=== PATIENT | male | born 1940 | race Caucasian/White ===

== ENCOUNTER → 2018-08-12 14:28 | Outpatient (CLI) | payer OTHER, MEDICARE, SELFPAY ==
[2018-08-12 17:28] LABS: Protein, Urine (Random) 90.9 mg/dL (<11.9); Protein:Creat Ratio 586 mg/g CRE (0-200)
[2018-08-12 18:15] LABS: BUN 30 mg/dL (7-18); BUN/Creat Ratio 20.3 RATIO (10-20); Calcium,Total 9.1 mg/dL (8.5-10.1); Chloride 110 mmol/L (98-107); Creatinine, Serum 1.48 mg/dL (0.70-1.30); EST Glomerular Filtration Rate 49 mL/min (>60); Est Glom Filt Rate - Afr Amer 59 mL/min (>60); Glucose 115 mg/dL (74-106); Phosphorus 3.5 mg/dL (2.5-4.9); Potassium 4.7 mmol/L (3.5-5.1); Sodium Level 144 mmol/L (136-145)
== END ==
PROVIDERS: Family Provider Family Medicine; PCP Family Medicine; Visit Provider Internal Medicine Nephrology
DX: N17.9 Acute kidney failure, unspecified (principal); E11.22 Type 2 diabetes mellitus with diabetic chronic kidney disease
CPT/HCPCS: 36415; 80069; 82570; 84156

== ENCOUNTER → 2019-07-22 10:56 | Outpatient (CLI) | payer OTHER, MEDICARE, SELFPAY ==
[2019-07-22 12:45] LABS: Anion Gap 3 (5-15); BUN 42 mg/dL (7-18); Calcium,Total 8.7 mg/dL (8.5-10.1); Chloride 118 mmol/L (98-107); Creatinine, Serum 1.83 mg/dL (0.70-1.30); EST Glomerular Filtration Rate 38 mL/min (>60); Est Glom Filt Rate - Afr Amer 46 mL/min (>60); Glucose 129 mg/dL (74-106); Potassium 5.5 mmol/L (3.5-5.1); Sodium Level 143 mmol/L (136-145)
== END ==
PROVIDERS: Family Provider Family Medicine; PCP Family Medicine; Visit Provider Internal Medicine Nephrology
DX: E87.5 Hyperkalemia (principal); E11.22 Type 2 diabetes mellitus with diabetic chronic kidney disease; N18.3 Chronic kidney disease, stage 3 (moderate)
CPT/HCPCS: 36415; 80048

== ENCOUNTER → 2019-08-05 14:16 | Outpatient (CLI) | payer OTHER, MEDICARE, SELFPAY ==
[2019-08-05 18:30] LABS: Anion Gap 8 (5-15); BUN 34 mg/dL (7-18); BUN/Creat Ratio 17.7 RATIO (10-20); Calcium,Total 8.9 mg/dL (8.5-10.1); Chloride 112 mmol/L (98-107); Creatinine, Serum 1.92 mg/dL (0.70-1.30); EST Glomerular Filtration Rate 36 mL/min (>60); Est Glom Filt Rate - Afr Amer 44 mL/min (>60); Glucose 144 mg/dL (74-106); Potassium 5.3 mmol/L (3.5-5.1); Sodium Level 144 mmol/L (136-145)
== END ==
PROVIDERS: Family Provider Family Medicine; PCP Family Medicine; Visit Provider Internal Medicine Nephrology
DX: E78.5 Hyperlipidemia, unspecified (principal)
CPT/HCPCS: 36415; 80048

== ENCOUNTER → 2020-02-01 11:07 | Outpatient (CLI) | payer MEDICARE, BC, SELFPAY ==
[2020-02-01 12:54] LABS: Albumin, Serum 2.7 g/dL (3.2-5.0); BUN 39 mg/dL (7-18); BUN/Creat Ratio 19.6 RATIO (10-20); Calcium,Total 8.9 mg/dL (8.5-10.1); Chloride 117 mmol/L (98-107); Creatinine, Serum 1.99 mg/dL (0.70-1.30); EST Glomerular Filtration Rate 35 mL/min (>60); Est Glom Filt Rate - Afr Amer 42 mL/min (>60); Glucose 81 mg/dL (74-106); Phosphorus 3.1 mg/dL (2.5-4.9); Potassium 5.6 mmol/L (3.5-5.1); Sodium Level 143 mmol/L (136-145)
== END ==
PROVIDERS: PCP Family Medicine; Visit Provider Internal Medicine Nephrology
DX: E87.5 Hyperkalemia (principal)
CPT/HCPCS: 36415; 80069

== ENCOUNTER → 2020-05-17 11:32 | Outpatient (CLI) | payer MEDICARE, BC, SELFPAY ==
[2020-05-17 12:49] LABS: Anion Gap 8 (5-15); BUN 37 mg/dL (7-18); BUN/Creat Ratio 19.5 RATIO (10-20); Calcium,Total 8.7 mg/dL (8.5-10.1); Chloride 111 mmol/L (98-107); EST Glomerular Filtration Rate 37 mL/min (>60); Est Glom Filt Rate - Afr Amer 44 mL/min (>60); Glucose 108 mg/dL (74-106); Potassium 5.5 mmol/L (3.5-5.1); Sodium Level 142 mmol/L (136-145)
== END ==
PROVIDERS: PCP Family Medicine; Visit Provider Internal Medicine Nephrology
DX: E87.5 Hyperkalemia (principal)
CPT/HCPCS: 36415; 80048

== ENCOUNTER 2021-01-04 18:58 | Inpatient (IN) | payer MEDICARE, BC, SELFPAY ==
[2021-01-04 19:22] VITALS: BP 140/49; PULSE 85; RESP 20; TEMP 36.4; O2SAT 98
[2021-01-04 21:45] VITALS: BMI 42.3
[2021-01-04 21:50] VITALS: BMI 42.3
--- NOTE | 2021-01-04 22:20 | HP.PCM_ITS ---
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 The patient is a 80 year old Male with below past medical history suffered a burn to right index finger 1 month prior. Right index finger was infected, and he saw his PCP who prescribed oral clindamycin. His right index finger continue to worsen, and he presented to [facility] Emergency department. He was admitted to hospital and diagnosed with osteomyelitis of right index finger requiring 6 weeks of IV antibiotics. May need surgical debridement of finger. 01/03/2021 Elevated creatinine managed with IV fluids, monitoring. He also has chronic left heel ulcer managed with a wound VAC dressing. 01/04/2021 Admit to TCU with debility, here for rehabilitation, strengthening, intravenous antibiotics, wound care, prior to discharge home alone. Past Medical History Past Medical History (Chronic Problems): Chronic Problems Ulcer of left heel (Chronic) Gout (Chronic) Hypertension (Chronic) Vitamin B12 deficiency (Chronic) Folate deficiency (Chronic) Diabetes mellitus (Chronic) Hypomagnesemia (Chronic) Diabetic polyneuropathy (Chronic) Hyperlipidemia (Chronic) Benign prostatic hyperplasia (Chronic) Chronic kidney disease (Chronic) Chronic inflammatory demyelinating polyneuritis (Chronic) Allergies aspirin [ASA] Allergy (Verified 01/04/21 20:25) Rash doxycycline Allergy (Verified 01/04/21 20:25) Rash levofloxacin [From Levaquin] Allergy (Verified 01/04/21 20:25) Diarrhea Penicillins Allergy (Verified 01/04/21 20:25) Rash Sulfa (Sulfonamide Antibiotics) Allergy (Verified 01/04/21 20:25) Rash Home Medications: Ambulatory Orders Medication Instructions Recorded Allopurinol 300 mg PO DAILY 01/04/21 Amlodipine [Norvasc] 5 mg PO DAILY 01/04/21 Cyanocobalamin (Vitamin B-12) 1,000 mcg PO DAILY 01/04/21 [B-12] Docusate Sodium 100 mg PO BID 01/04/21 Fluoride (Sodium) [Prevident] 1 applicatio TOPICAL BID 01/04/21 Folic Acid 1 mg PO DAILY 01/04/21 Insulin Human 70/30 [Novolog Mix 60 - 70 units SC BIDCM 01/04/21 70-30 Flexpen Syrn] Magnesium Oxide 400 mg PO BID 01/04/21 Multivitamin with Minerals 1 ea PO DAILY 01/04/21 [Multiple Vitamin] Multivitamin/Iron/Folic Acid 1 tab PO DAILY 01/04/21 [Centrum Adults Tablet] Pregabalin [Lyrica] 100 mg PO BID 01/04/21 Simvastatin 20 mg PO DAILY 01/04/21 Tamsulosin HCl 0.4 mg PO DAILY 01/04/21 Vancomycin IV [Vancomycin] 1 gm IV Q24H 01/04/21 Surgical History: noncontributory Psychiatric History: No pertinent psych hx Lives: Alone Smoking Status: Former smoker Tobacco Use: Cigarettes, Cigars Alcohol: None - *Family History Maternal History Items: No pertinent history Paternal History Items: No pertinent history Review of Systems Constitutional: Denies: Chills, Fever, Weight Change HEENT: Denies: Head Aches, Sinus Congestion, Sinus Drainage Cardiovascular: Denies: Chest Pain, Palpitations Respiratory: Denies: Cough, Shortness of breath at rest, Sputum production Gastrointestinal: Denies: Abdominal Pain, Nausea, Vomiting Genitourinary: Denies: Dysuria Musculoskeletal: Denies: Joint Pain, Joint Tenderness Skin: Denies: Rash, Wounds Neurological: Denies: Numbness, Tingling, Focal weakness Psychiatric: Denies: Anxiety, Depression, Homicidal Ideations, Suicidal Ideations Hematologic/ Lymphatic: Denies: Easy Bruising, Easy Bleeding VTE Information - Inpt Only VTE Present on Admission: No VTE Mechan Device Prophylaxis: Knee High JAZMINE Hose VTE Pharm Prophylaxis ordered?: Yes Patient Problems: Active and Suspected Problems Debility (Acute) Osteomyelitis of finger of right hand (Acute) - Physical Exam Vitals/I&O's: Vital Signs Temp Pulse Resp BP Pulse Ox 97.5 F L 85 20 H 140/49 H 98 01/04/21 19:22 01/04/21 19:22 01/04/21 19:22 01/04/21 19:22 01/04/21 19:22 Oxygen Delivery Method Room Air Weight: 133.356 kg Body Mass Index (BMI) 41.0 General: Alert, Oriented x3, Cooperative HEENT: Atraumatic, PERRLA, EOMI, Normocephalic Neck: Supple, No JVD, Negative Carotid Bruits Lungs: Clear to auscultation, Normal air movement Cardiovascular: Regular rate, No murmurs Abdomen: Bowel Sounds Present, Soft, Non Tender Extremities: No edema, Capillary Refill Less than 3 Seconds, - - PICC LUE, Left foot dressed, right index finger swelling, erythema. Skin: No rashes, No breakdown Musculoskeletal: No Tenderness to Palpation of Joints or Extremities Neurological: Cranial nerves II-XII grossly intact Psych/Mental Status: Normal Affect, Appropriate Laboratory Results 01/04/21 20:45: COVID-19 (JOE) Pending Current Medications Allopurinol (Allopurinol 300 Mg Tablet) 300 mg PO DAILY DAISY Amlodipine Besylate (Amlodipine 5 Mg Tablet) 5 mg PO DAILY DAISY Folic Acid (Folic Acid 1 Mg Tablet) 1 mg PO DAILY DAISY Heparin Sodium (Beef Lung) (Heparin Pf Lock 10 Units/Ml 50 Units/5 Ml Syringe) 50 units IV UD PRN PRN Reason: PICC Line Heparin Flush Sodium Chloride () 250 mls @ 15 mls/hr IV .[id number] PRN PRN Reason: Saline Flush Sodium Chloride () 250 mls @ 15 mls/hr IV .[id number] PRN PRN Reason: Additional IVPB Infusion Non-Formulary Medication (Cyanocobalamin (Vitamin B-12) [B-12]) 1,000 mcg PO DAILY DAISY Non-Formulary Medication (Insulin Human 70/30 [Novolog Mix 70-30 Flexpen Syrn]) 60 - 70 units SC BIDCM DAISY Non-Formulary Medication (Magnesium Oxide) 400 mg PO BID DAISY Non-Formulary Medication (Multivitamin With Minerals [Multiple Vitamin]) 1 ea PO DAILY DAISY Non-Formulary Medication (Pregabalin [Lyrica]) 100 mg PO BID DAISY Non-Formulary Medication (Simvastatin) 20 mg PO HS DAISY Non-Formulary Medication (Tamsulosin Hcl) 0.4 mg PO DAILY DAISY Non-Formulary Medication (Vancomycin Iv [Vancomycin]) 1 gm IV Q24H DAISY Sodium Chloride (0.9% Saline Lock 10 Ml Syringe) 10 - 40 ml IV UD PRN PRN Reason: Open End PICC Flush Sodium Chloride (0.9 % Nacl (Sterile) Posiflush 10 Ml) 10 - 40 ml IV UD PRN PRN Reason: Port access or dressing change Tuberculin PPD (Tuberculin,Purif.Prot.Deriv. 50 Tu/Ml Vial) 5 tu ID X1 ONE Stop: 01/05/21 10:01 Tuberculin PPD (Tuberculin,Purif.Prot.Deriv. 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 * Debility - PT/OT. * Pain - Tylenol 1000MG Q6H PRN pain (1-3), Oxycodone 5MG Q4H PRN pain (4-10). * Bowel - Miralax 17GM daily, Senna/colace 1 tablet BID, MOM 30ML daily PRN, Dulcolax 10MG NC daily PRN. * Adult immunization - Administer Prevnar 13, Pneumovax 23, Fluzone, COVID19 vaccine as appropriate. * DVT prophylaxis - Hold, Anemia. * Gout - Allopurinol 300MG daily. * Hypertension - Amlodipine 5MG daily. * Vitamin B12 deficiency - B12 1000MCG daily. * Folate deficiency - Folic acid 1MG daily. * Diabetes Mellitus II - Lantus 35 units QHS, Humalog 10 units TIDAC. * Hypomagnesemia - Magnesium oxide 400MG BID. * Nutrition - MVI daily. * Diabetic polyneuropathy - Lyrica 100MG BID. * Hyperlipidemia - Atorvastatin 20MG QHS. * BPH - Tamsulosin 0.4MG daily. * Osteomyelitis right index finger - Vancomycin 1GM IV Q24H, consult Dr. Carlson. * Left heel ulcer - Wound VAC, consult Dr. Woodard, consult Wound/Ostomy nurse. * Hyperkalemia - K 5.6, Kayexalate 30GM PO x 1 dose, repeat BMP tomorrow.
[2021-01-04 23:01] LABS: Bedside Glucose 220 mg/dL (70-110)
[2021-01-04] MEDS: Pregabalin 50 MG Capsule 100 MG PO (23:01)
[2021-01-05 05:27] VITALS: BP 140/52; PULSE 74; RESP 16; TEMP 37.1; O2SAT 95
[2021-01-05] MEDS: Polyethylene Glycol 3350 17 GM PACKET PO (05:33)
[2021-01-05] MEDS: Senna/Docusate Sodium 1 Tablet PO (05:33)
[2021-01-05] MEDS: Cyanocobalamin 500 MCG Tablet 1000 MCG PO (05:34)
[2021-01-05] MEDS: Tamsulosin HCl 0.4 MG Capsule PO (05:34)
[2021-01-05] MEDS: Magnesium Chloride 64 MG Delay Rel.Tablet 128 MG PO ×2 (05:34→17:53)
[2021-01-05] MEDS: amLODIPine 5 MG Tablet PO (05:34)
[2021-01-05] MEDS: Pregabalin 50 MG Capsule 100 MG PO ×2 (05:39→17:58)
[2021-01-05] MEDS: 0.9% Saline Lock 10 ML Syringe IV ×2 (05:39→10:40)
[2021-01-05 05:49] LABS: Absolute Lymphocyte Count 1.53 X10^3/uL (0.83-4.51); Absolute Neutrophil Count 4.7 X10^3/uL (2.0-7.7); Basophil# 0.03 X10^3/uL; Basophil% 0.4 % (0-1); Eosinophil# 0.28 X10^3/uL; Eosinophils% 3.9 % (0-5); Hematocrit 27.6 % (40-54); Hemoglobin 8.8 g/dL (13.0-16.5); Lymphocyte # 1.53 X10^3/ul (4.0); Lymphocyte % 21.4 % (19-41); Mean Corp Hgb Conc 31.9 g/dL (32-36); Mean Corpuscular Hgb 28.8 pg (27.0-32.0); Mean Corpuscular Volume 90.2 fL (80-94); Mean Platelet Vol. 10.1 fl (6.2-12.0); Monocyte# 0.63 X10^3/uL; Monocyte% 8.8 % (0-10); NRBC Flagged by Analyzer 0 % (0-5); Neutrophil # 4.66 X10^3/uL (2.7-7.7); Neutrophil % 65.2 % (47-70); Platelet Count 237 K/mm3 (150-450); RBC Distribution Width CV 13.7 % (11.6-14.6); RBC Distribution Width SD 44.8 fl (35.1-43.9); Red Blood Count 3.06 M/mm3 (4.6-6.2); White Blood Count 7.2 K/mm3 (4.4-11.0)
[2021-01-05 06:09] LABS: Anion Gap 4 (5-15); BUN 38 mg/dL (7-18); BUN/Creat Ratio 19.8 RATIO (10-20); Chloride 107 mmol/L (98-107); Creatinine, Serum 1.92 mg/dL (0.70-1.30); EST Glomerular Filtration Rate 36 mL/min (>60); Est Glom Filt Rate - Afr Amer 44 mL/min (>60); Estimated Creatinine Clearance 33.77 ml/min; Glucose 140 mg/dL (74-106); Potassium 5.6 mmol/L (3.5-5.1); Sodium Level 137 mmol/L (136-145)
[2021-01-05 06:11] LABS: Bedside Glucose 127 mg/dL (70-110)
--- NOTE | 2021-01-05 06:20 | PCM.RX.CS ---
Consult Pharmacy has been consulted to manage selected antiobiotic: Vancomycin Type of Consult: New start Suspected Infection: Osteomyelitis Prior Doses of Antibiotics Received/Current Regimen: Medications Vancomycin HCl (Vancomycin) 1,000 mg in 200 mls @ 200 mls/hr IV Q24H DAISY Labs: Sodium 137 mmol/L (136-145) 01/05/21 05:35 Potassium 5.6 mmol/L (3.5-5.1) H 01/05/21 05:35 Chloride 107 mmol/L (98-107) 01/05/21 05:35 Carbon Dioxide 26.0 mmol/L (21.0-32.0) 01/05/21 05:35 Anion Gap 4 (5-15) L 01/05/21 05:35 BUN 38 mg/dL (7-18) H 01/05/21 05:35 Creatinine 1.92 mg/dL (0.70-1.30) H 01/05/21 05:35 Est GFR (MDRD) Af Amer 44 mL/min (>60) L 01/05/21 05:35 Est GFR (MDRD) Non-Af 36 mL/min (>60) L 01/05/21 05:35 BUN/Creatinine Ratio 19.8 RATIO (10-20) 01/05/21 05:35 Glucose 140 mg/dL (74-106) H 01/05/21 05:35 Weight used for dosin kg Estimated Creatinine Clearance: 33.8 Goal Trough: 15-20 mcg/mL Pharmacy Plan for Drug Dosing: Pt is continuing vancomycin IV from previous facility where it was being given at 1000mg q24h. Will continue this, but will draw a random level 01/05/21 to determine current level and adjust dosing from that result. Pharmacy Service will continue to monitor and adjust dosing as required. Follow-Up Labs: Trough Vancomycin - random Labs to be done on [date and time ordered]: 01/05/21 @3464
--- NOTE | 2021-01-05 08:17 | NURSING ---
POTASSIUM ELEVATED, DR JEANA ZAMORA, NEW ORDER FOR BMP IN AM, KAYEXALATE 30GM X1, [facility]
[2021-01-05] MEDS: Multivitamins,Ther W-Minerals Tablet 1 TABLET PO (08:52)
[2021-01-05] MEDS: Insulin Lispro 100 UNIT/ML INSULN.PEN 10 UNIT SC ×3 (08:52→17:51)
[2021-01-05] MEDS: Allopurinol 300 MG Tablet PO (08:52)
[2021-01-05] MEDS: Folic Acid 1 MG Tablet PO (08:52)
[2021-01-05] MEDS: Sodium Polystyrene Sulfonate 15 GM/60 ML UDC 30 GM PO (09:01)
--- NOTE | 2021-01-05 09:30 | RAD_ITS ---
STUDY: X-RAY CHEST REASON FOR EXAM: Male, 80 years old. PICC LINE TECHNIQUE: Single AP portable view of the chest. COMPARISON: None. FINDINGS: A left-sided PICC line catheter has been placed. The tip is in the midportion of the superior vena cava. Elevated right hemidiaphragm. Calcified granulomatous disease. Blunting of the left costophrenic angle. Normal size heart. Normal mediastinum and marie. Normal visualized pulmonary arteries. There is atherosclerotic calcification of the aortic arch with tortuosity. There are diffuse degenerative changes of the visualized thoracic spine. Normal visualized ribs, clavicles, and shoulders. There is no demonstrated abnormality of the visualized soft tissue structures of the upper abdomen. RAD/Chest 1 View IMPRESSION: The tip of the PICC line catheter is in the midportion of the superior vena cava. Electronically Signed: Yakov España MD at 10:02 EST , Service support ,
[2021-01-05 10:01] LABS: Vancomycin, Random Level 17.9 ug/mL (0.0-15.0)
[2021-01-05] MEDS: Vancomycin IV 1,000 MG/200 ML BAG 200 MG IV (10:45)
[2021-01-05 11:25] LABS: Bedside Glucose 142 mg/dL (70-110)
--- NOTE | 2021-01-05 13:07 | CON.PCM_ITS ---
Problem List (1) Ulcer of left foot with fat layer exposed Status: Chronic (2) Type 2 diabetes mellitus with diabetic polyneuropathy Status: Chronic (3) Other specified peripheral vascular diseases Status: Chronic (4) Edema, lower extremity Status: Chronic Reason for Consult Date of Consultation: 01/05/21 Reason for Consultation: Left heel ulcer History of Present Illness: The patient is a 80 year old M with significant past medical history of diabetes (last self reported A1C is < 7%), neuropathy, vitamin deficiency, hypertension was seen bedside this afternoon for left heel ulcer. He relates he had a blister occur 5 weeks ago which this was drained with his control inspector. This further failed to heal and also became infected. He was treated at a hospital in [place] for his infection and has since been following up in the wound care center in [place] with Dr. Santos. He relates he already had blood flow studies performed and he has a vascular surgery intervention scheduled for this upcoming Friday. He denies current claudication while walking however does not ambulate a significant degree. He has rest paresthesias and lack of sensation from the knee down. He denies current redness or odor coming from the foot. He has been having a wound VAC applied. He denies current fever, chill, nausea, vomiting. It is also noted he is treated for finger osteomyelitis and is following up with a surgeon as well. Past Medical History Past Medical History (Chronic Problems): Chronic Problems Ulcer of left heel (Chronic) Gout (Chronic) Hypertension (Chronic) Vitamin B12 deficiency (Chronic) Folate deficiency (Chronic) Diabetes mellitus (Chronic) Hypomagnesemia (Chronic) Diabetic polyneuropathy (Chronic) Hyperlipidemia (Chronic) Benign prostatic hyperplasia (Chronic) Chronic kidney disease (Chronic) Chronic inflammatory demyelinating polyneuritis (Chronic) Ulcer of left foot with fat layer exposed (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) Other specified peripheral vascular diseases (Chronic) Edema, lower extremity (Chronic) Allergies aspirin [ASA] Allergy (Verified 01/04/21 20:25) Rash doxycycline Allergy (Verified 01/04/21 20:25) Rash levofloxacin [From Levaquin] Allergy (Verified 01/04/21 20:25) Diarrhea Penicillins Allergy (Verified 01/04/21 20:25) Rash Sulfa (Sulfonamide Antibiotics) Allergy (Verified 01/04/21 20:25) Rash Home Medications: Ambulatory Orders Medication Instructions Recorded Allopurinol 300 mg PO DAILY 01/04/21 Amlodipine [Norvasc] 5 mg PO DAILY 01/04/21 Cyanocobalamin (Vitamin B-12) 1,000 mcg PO DAILY 01/04/21 [B-12] Docusate Sodium 100 mg PO BID 01/04/21 Fluoride (Sodium) [Prevident] 1 applicatio TOPICAL BID 01/04/21 Folic Acid 1 mg PO DAILY 01/04/21 Insulin Human 70/30 [Novolog Mix 60 - 70 units SC BIDCM 01/04/21 70-30 Flexpen Syrn] Magnesium Oxide 400 mg PO BID 01/04/21 Multivitamin with Minerals 1 ea PO DAILY 01/04/21 [Multiple Vitamin] Multivitamin/Iron/Folic Acid 1 tab PO DAILY 01/04/21 [Centrum Adults Tablet] Pregabalin [Lyrica] 100 mg PO BID 01/04/21 Simvastatin 20 mg PO DAILY 01/04/21 Tamsulosin HCl 0.4 mg PO DAILY 01/04/21 Vancomycin IV [Vancomycin] 1 gm IV Q24H 01/04/21 Surgical History: noncontributory Psychiatric History: No pertinent psych hx Lives: Alone Smoking Status: Former smoker Tobacco Use: Cigarettes, Cigars Alcohol: None - *Family History Maternal History Items: No pertinent history Paternal History Items: No pertinent history Review of Systems Constitutional: Denies: Chills, Fever HEENT: Denies: Sore Throat Cardiovascular: Denies: Chest Pain, Claudication Respiratory: Denies: Cough, Shortness of Breath Gastrointestinal: Denies: Nausea, Vomiting Musculoskeletal: Denies: Foot Pain, Leg Pain Skin: Reports: Skin Changes, Wounds Neurological: Denies: Numbness Psychiatric: Denies: Depression Patient Problems: Active and Suspected Problems Debility (Acute) Osteomyelitis of finger of right hand (Acute) - Physical Exam Vitals/I&O's: Vital Signs Temp Pulse Resp BP Pulse Ox 98.8 F 74 16 140/52 H 95 01/05/21 05:27 01/05/21 05:27 01/05/21 05:27 01/05/21 05:27 01/05/21 05:27 Oxygen Delivery Method Room Air Weight: 137.467 kg Body Mass Index (BMI) 42.3 Intake and Output for Last 24 Hours 01/03/21 01/04/21 01/05/21 23:59 23:59 23:59 Intake Total 800 / 800 Balance 800 / 800 General: Alert, Oriented x3, Cooperative HEENT: Atraumatic Extremities: No cyanosis, Capillary Refill Less than 3 Seconds, No Calf Tenderness - Negative Eliel and Lassiter sign bilateral, Diminished Peripheral Pulses - He does have palpable dorsalis pedis pulse bilateral nonpalpable bilateral PT pulse., Edema - Bilateral lower extremities Skin: Ulcer/ Wound - He has a skin discontinuity to the posterior aspect of his left heel that measures 2.9 x 3.9 x 1.0 cm. Post debridement measurement is 3.0 x 4.0 x 1.1 cm. The base of this ulcer is 85% granular and 15% fibrous and devitalized centrally. There is no deep bone exposure or sinus tracking., - - Adjacent skin is atrophic. There is no bogginess or fluctuance on palpation and there does not appear to be any local signs of infection to the foot. No skin discontinuity or infection to right lower extremity Musculoskeletal: No Tenderness to Palpation of Joints or Extremities, Muscle Wasting, - - Active range of motion digits x10 and ankles in all direction bilateral. Neurological: - - Lack of normal epicritic sensation to light touch is consistent with his neuropathic status Psych/Mental Status: Normal Affect, Appropriate Laboratory Results 01/04/21 20:45: COVID-19 (JOE) Pending 01/04/21 22:59: POC Glucose 220 H 01/05/21 05:35: WBC 7.2, RBC 3.06 L, Hgb 8.8 L, Hct 27.6 L, MCV 90.2, MCH 28.8, MCHC 31.9 L, RDW Std Deviation 44.8 H, RDW Coeff of Joao 13.7, Plt Count 237, MPV 10.1, Immature Gran % (Auto) 0.300, Neut % (Auto) 65.2, Lymph % (Auto) 21.4, [place] % (Auto) 8.8, Eos % (Auto) 3.9, Baso % (Auto) 0.4, Absolute Neuts (auto) 4.7, Absolute Lymphs (auto) 1.53, Nucleated RBC % 0 01/05/21 05:35: Sodium 137, Potassium 5.6 H, Chloride 107, Carbon Dioxide 26.0, Anion Gap 4 L, BUN 38 H, Creatinine 1.92 H, Estim Creat Clear Calc 33.77, Est GFR (MDRD) Af Amer 44 L, Est GFR (MDRD) Non-Af 36 L, BUN/Creatinine Ratio 19.8, Glucose 140 H, Calcium 9.0 01/05/21 06:01: POC Glucose 127 H 01/05/21 09:14: Random Vancomycin 17.9 H 01/05/21 11:22: POC Glucose 142 H Current Medications Acetaminophen (Acetaminophen 500 Mg Tablet) 1,000 mg PO Q6H PRN PRN PRN Reason: Pain Score 1-3 [facility] ([facility] Mg [facility]) [facility] Admin: 01/05/21 08:52 Dose: 300 mg Documented by: Amlodipine Besylate (Amlodipine 5 Mg Tablet) 5 mg PO DAILY [facility] Last Admin: 01/05/21 05:34 Dose: 5 mg Documented by: Atorvastatin Calcium (Atorvastatin Calcium 20 Mg Tablet) 20 mg PO QHS [facility] Bisacodyl (Bisacodyl 10 Mg Suppository) 10 mg RECTAL DAILY PRN PRN Reason: Constipation Cyanocobalamin (Cyanocobalamin 500 Mcg Tablet) 1,000 mcg PO DAILY [facility] Last Admin: 01/05/21 05:34 Dose: 1,000 mcg Documented by: Folic Acid (Folic Acid 1 Mg Tablet) [facility] Last Admin: 01/05/21 08:52 Dose: 1 mg Documented by: Heparin Sodium (Beef Lung) (Heparin Pf Lock 10 Units/Ml 50 Units/5 Ml Syringe) 50 units IV UD PRN PRN Reason: PICC Line Heparin Flush Sodium Chloride () 250 mls @ 15 mls/hr IV .[id number] PRN PRN Reason: Saline Flush Last Admin: 01/05/21 10:39 Dose: 15 mls/hr Documented by: Sodium Chloride () 250 mls @ 15 mls/hr IV .[id number] PRN PRN Reason: Additional IVPB Infusion Vancomycin IV Pharmacy to Dose (1 ea/ Sodium Chloride) 100 mls @ 100 mls/hr IV PRN PRN PRN Reason: PHARMACY TO DOSE Vancomycin HCl (Vancomycin) 1,000 mg in 200 mls @ 200 mls/hr IV Q24H [facility] Last Infusion: 01/05/21 12:17 Dose: Infused Documented by: Insulin Glargine (Insulin Glargine 100 Units/Ml Pen) 35 units SC QHS [facility] Last Admin: 01/04/21 23:16 Dose: 35 units Documented by: Insulin Human Lispro (Insulin Lispro 100 Unit/Ml Insuln.Pen) 10 unit SC TIDAC [facility] Last Admin: 01/05/21 12:20 Dose: 10 units Documented by: Magnesium Chloride (Magnesium Chloride 64 Mg Delay Rel.Tablet) 128 mg PO BID [facility] Last Admin: 01/05/21 05:34 Dose: 128 mg Documented by: Magnesium Hydroxide (Magnesium Hydroxide 30 Ml Udc) 30 ml PO DAILY PRN PRN Reason: Constipation Multivitamins/Minerals (Multivitamins,Ther W-Minerals Tablet) [facility] Admin: 01/05/21 08:52 Dose: 1 tablet Documented by: Oxycodone HCl (Oxycodone 5 Mg Tablet) 5 mg PO Q4H PRN PRN PRN Reason: Pain Score 4-10 Polyethylene Glycol (Polyethylene Glycol 3350 17 Gm Packet) 17 gm PO DAILY [facility] Last Admin: 01/05/21 05:33 Dose: 17 gm Documented by: Pregabalin (Pregabalin 50 Mg Capsule) 100 mg PO BID [facility] Last Admin: 01/05/21 05:39 Dose: 100 mg Documented by: Senna/Docusate Sodium (Senna/Docusate Sodium 1 Tablet) 1 tablet PO BID [facility] Last Admin: 01/05/21 05:33 Dose: 1 tablet Documented by: Sodium Chloride (0.9% Saline Lock 10 Ml Syringe) 10 - 40 ml IV UD PRN PRN Reason: Open End PICC Flush Last Admin: 01/05/21 10:40 Dose: 20 ml Documented by: Sodium Chloride (0.9 % Nacl (Sterile) Posiflush 10 Ml) 10 - 40 ml IV UD PRN PRN Reason: Port access or dressing change Tamsulosin HCl (Tamsulosin Hcl 0.4 Mg Capsule) 0.4 mg PO DAILY [facility] Last Admin: 01/05/21 05:34 Dose: 0.4 mg Documented by: Tuberculin PPD (Tuberculin,Purif.Prot.Deriv. 50 Tu/Ml Vial) 5 tu ID X1 ONE Stop: 01/12/21 10:01 Assessment/Plan All Active Problems Debility (Acute) Osteomyelitis of finger of right hand (Acute) Left heel ulcer with fat layer exposed, Hale grade 1, no local signs of infection today History of left heel ulcer infection treated at facility; resolved Peripheral vascular disease (work-up started at a different facility and intervention is planned for next week) Diabetes Neuropathy Other comorbidities Finger osteomyelitis Reviewed and discussed his case. He is afebrile and his vital signs are stable. He does not have leukocytosis. He is reassured no deep tissue or signs of infection are noted on his foot today. Verbal consent was obtained to perform subcutaneous excisional debridement to remove devitalized subcutaneous tissue, fibrous tissue, biofilm and slough. Minimal hematogenous drainage was noted and pressure was applied. He tolerated this well. A dry dressing was applied. A wound VAC placed on 150 mmHg continuously will be applied later this afternoon to resume his previously designated wound care plan he has been undergoing at the [place] wound care center. I recommend additional strict offloading by floating his heels over pillows while in bed. Additional offloading would include edema management. It is noted he relates a sensitivity to the elastic [place] wrap and and I recommend applying a thin layer of Kerlix or web roll prior to the [place] wrap. To periodically elevate limbs and perform lower extremity muscular contraction throughout the day to also aid in edema management. He reports had a noninvasive vascular study performed at an outside facility and plans to have vascular intervention performed this upcoming Friday. Records will be requested from this outside facility. Thank you for the consultation. The podiatry team will continue to follow him weekly. Please do not hesitate to call if you have any questions. Faviola Sams DPM, [facility] [phone]
[2021-01-05 14:07] VITALS: BP 125/54; PULSE 69; RESP 15; TEMP 36.7; O2SAT 96
--- NOTE | 2021-01-05 14:12 | CASEMGMT ---
Social Work Discussed code status with pt. Pt confirmed full code. MOLST form reviewed, communication to , placed in chart. Pt unsure on whom is HCPOA - either dtr or son or both. Copies not on file. Explained Medicare benefit. Sarah Yoder, TECHNICAL LABORATORY ASST TABLET MACHINE OPERATOR
--- NOTE | 2021-01-05 14:35 | PCM.RX.CS ---
Consult Pharmacy has been consulted to manage selected antiobiotic: Vancomycin Type of Consult: Follow-up Suspected Infection: Osteomyelitis Prior Doses of Antibiotics Received/Current Regimen: VANCOMYCIN WAS INITIATED AT ANOTHER FACILITY, NOT SURE HOW MANY PRIOR DOSES. ORDER TO BE CONTINUED FOR 4 WEEKS Labs: Sodium 137 mmol/L (136-145) 01/05/21 05:35 Potassium 5.6 mmol/L (3.5-5.1) H 01/05/21 05:35 Chloride 107 mmol/L (98-107) 01/05/21 05:35 Carbon Dioxide 26.0 mmol/L (21.0-32.0) 01/05/21 05:35 Anion Gap 4 (5-15) L 01/05/21 05:35 BUN 38 mg/dL (7-18) H 01/05/21 05:35 Creatinine 1.92 mg/dL (0.70-1.30) H 01/05/21 05:35 Est GFR (MDRD) Af Amer 44 mL/min (>60) L 01/05/21 05:35 Est GFR (MDRD) Non-Af 36 mL/min (>60) L 01/05/21 05:35 BUN/Creatinine Ratio 19.8 RATIO (10-20) 01/05/21 05:35 Glucose 140 mg/dL (74-106) H 01/05/21 05:35 Random Vancomycin 17.9 ug/mL (0.0-15.0) H 01/05/21 09:14 TROUGH LEVEL OF 17.9 AT 33.25HRS. WILL REPEAT TROUGH LEVEL AFTER 2 MORE DOSES = 01/07/21 PRIOR TO 10AM DOSE. Weight used for dosin kg Estimated Creatinine Clearance: 33.77 Goal Trough: 15-20 mcg/mL Pharmacy Plan for Drug Dosing: Pharmacy Service will continue to monitor and adjust dosing as required.
--- NOTE | 2021-01-05 14:36 | NURSING ---
Resident up in chair. Soaks Rt index finger in warm soapy water.
--- NOTE | 2021-01-05 14:54 | NURSING ---
Resident states that he reacts to PPD tubersol injections every time. This RN did not give and updated Dr whelan with this. Dr Whelan states he just had a recent chest xray and it looke ok, so no need to repeat an xray at this time. No new orders.
--- NOTE | 2021-01-05 15:04 | PCM.HP.ID ---
Problem List (1) Osteomyelitis of finger of right hand Status: Acute Reason for Consult: finger osteo Consulted by: Dr. Whelan History of Present Illness: The patient is a 80 year old M transferred to TCU from [facility] with R 2nd finger osteo for several weeks. Started as a blister, had progressive pain/redness/swelling. No fever or chills. Did not improve with po abx. Is R handed. Went to hospital, picc placed, discharged on at least 4 weeks of iv vanc. Feeling ok. Full ROS performed and neg except as noted above. - Medical History Past Medical History (Chronic Problems): Chronic Problems Ulcer of left heel (Chronic) Gout (Chronic) Hypertension (Chronic) Vitamin B12 deficiency (Chronic) Folate deficiency (Chronic) Diabetes mellitus (Chronic) Hypomagnesemia (Chronic) Diabetic polyneuropathy (Chronic) Hyperlipidemia (Chronic) Benign prostatic hyperplasia (Chronic) Chronic kidney disease (Chronic) Chronic inflammatory demyelinating polyneuritis (Chronic) Allergies/Adverse Reactions: Allergies aspirin [ASA] Allergy (Verified 01/04/21 20:25) Rash doxycycline Allergy (Verified 01/04/21 20:25) Rash levofloxacin [From Levaquin] Allergy (Verified 01/04/21 20:25) Diarrhea Penicillins Allergy (Verified 01/04/21 20:25) Rash Sulfa (Sulfonamide Antibiotics) Allergy (Verified 01/04/21 20:25) Rash Home Medications: Ambulatory Orders Medication Instructions Recorded Allopurinol 300 mg PO DAILY 01/04/21 Amlodipine [Norvasc] 5 mg PO DAILY 01/04/21 Cyanocobalamin (Vitamin B-12) 1,000 mcg PO DAILY 01/04/21 [B-12] Docusate Sodium 100 mg PO BID 01/04/21 Fluoride (Sodium) [Prevident] 1 applicatio TOPICAL BID 01/04/21 Folic Acid 1 mg PO DAILY 01/04/21 Insulin Human 70/30 [Novolog Mix 60 - 70 units SC BIDCM 01/04/21 70-30 Flexpen Syrn] Magnesium Oxide 400 mg PO BID 01/04/21 Multivitamin with Minerals 1 ea PO DAILY 01/04/21 [Multiple Vitamin] Multivitamin/Iron/Folic Acid 1 tab PO DAILY 01/04/21 [Centrum Adults Tablet] Pregabalin [Lyrica] 100 mg PO BID 02/04/21 Simvastatin 20 mg PO DAILY 01/04/21 Tamsulosin HCl 0.4 mg PO DAILY 01/04/21 Vancomycin IV [Vancomycin] 1 gm IV Q24H 01/04/21 - Social History SMOKING STATUS:: Former smoker Vital Signs Temp Pulse Resp BP Pulse Ox 98.0 F 69 15 125/54 H 96 01/05/21 14:07 01/05/21 14:07 01/05/21 14:07 01/05/21 14:07 01/05/21 14:07 Oxygen Delivery Method Room Air Weight: 137.467 kg Body Mass Index (BMI) 42.3 Laboratory Tests Past 24 Hrs 01/04/21 01/05/21 01/05/21 20:45 05:35 05:35 WBC 7.2 RBC 3.06 L Hgb 8.8 L Hct 27.6 L MCV 90.2 MCH 28.8 MCHC 31.9 L RDW Std Deviation 44.8 H RDW Coeff of Joao 13.7 Plt Count 237 MPV 10.1 Immature Gran % (Auto) 0.300 Neut % (Auto) 65.2 Lymph % (Auto) 21.4 Culberson % (Auto) 8.8 Eos % (Auto) 3.9 Baso % (Auto) 0.4 Absolute Neuts (auto) 4.7 Absolute Lymphs (auto) 1.53 Nucleated RBC % 0 Sodium 137 Potassium 5.6 H Chloride 107 Carbon Dioxide 26.0 Anion Gap 4 L BUN 38 H Creatinine 1.92 H Estim Creat Clear Calc 33.77 Est GFR (MDRD) Af Amer 44 L Est GFR (MDRD) Non-Af 36 L BUN/Creatinine Ratio 19.8 Glucose 140 H Calcium 9.0 Random Vancomycin COVID-19 (JOE) Pending 01/05/21 09:14 WBC RBC Hgb Hct MCV MCH MCHC RDW Std Deviation RDW Coeff of Joao Plt Count MPV Immature Gran % (Auto) Neut % (Auto) Lymph % (Auto) Culberson % (Auto) Eos % (Auto) Baso % (Auto) Absolute Neuts (auto) Absolute Lymphs (auto) Nucleated RBC % Sodium Potassium Chloride Carbon Dioxide Anion Gap BUN Creatinine Estim Creat Clear Calc Est GFR (MDRD) Af Amer Est GFR (MDRD) Non-Af BUN/Creatinine Ratio Glucose Calcium Random Vancomycin 17.9 H COVID-19 (JOE) - Other Studies Radiology: [] reviewed Other Studies: [] Route of nutrition/ use of supplements: [] Nutritional Intake: [] IV Site: [] Luu Catheter: [] - Physical Exam General: Alert, Oriented x3, Cooperative, No apparent distress HEENT: Atraumatic, PERRLA, EOMI Neck: Supple, No Nodes Lungs: Clear to auscultation, Normal air movement Cardiovascular: Regular rate, Regular Rhythm Abdomen: Soft, Non Tender, Non-Distended Extremities: No edema Skin: - - R index finger with redness, swelling, some dried wounds Musculoskeletal: No Tenderness to Palpation of Joints or Extremities Neurological: Cranial nerves II-XII grossly intact - Assessment/Plan Antibiotics: [] Assessment/Plan: [] Active and Suspected Problems Debility (Acute) Osteomyelitis of finger of right hand (Acute) R index finger osteo - will request cx results from OSH. Cont vanc, plan on 4-6 week course, may need longer course of po abx after that. Will follow, thank you
--- NOTE | 2021-01-05 16:21 | NURSING ---
dr michelle and dr galan requesting medical records from [facility]. faxed medical release, awaiting records via fax
[2021-01-05 17:00] LABS: Bedside Glucose 116 mg/dL (70-110)
[2021-01-05] MEDS: Atorvastatin Calcium 20 MG Tablet PO (20:08)
[2021-01-05 21:40] LABS: Bedside Glucose 170 mg/dL (70-110)
[2021-01-06 05:49] VITALS: BP 157/75; PULSE 62; RESP 16; TEMP 36.6; O2SAT 96
[2021-01-06] MEDS: Pregabalin 50 MG Capsule 100 MG PO ×2 (05:50→17:46)
[2021-01-06] MEDS: amLODIPine 5 MG Tablet PO (05:51)
[2021-01-06] MEDS: Tamsulosin HCl 0.4 MG Capsule PO (05:51)
[2021-01-06] MEDS: Magnesium Chloride 64 MG Delay Rel.Tablet 128 MG PO ×2 (05:51→17:44)
[2021-01-06] MEDS: Cyanocobalamin 500 MCG Tablet 1000 MCG PO (05:51)
[2021-01-06 06:36] LABS: Bedside Glucose 140 mg/dL (70-110)
[2021-01-06 08:00] LABS: Anion Gap 6 (5-15); BUN 40 mg/dL (7-18); BUN/Creat Ratio 22.7 RATIO (10-20); Calcium,Total 8.8 mg/dL (8.5-10.1); Chloride 105 mmol/L (98-107); Creatinine, Serum 1.76 mg/dL (0.70-1.30); EST Glomerular Filtration Rate 40 mL/min (>60); Est Glom Filt Rate - Afr Amer 48 mL/min (>60); Estimated Creatinine Clearance 36.84 ml/min; Glucose 151 mg/dL (74-106); Potassium 4.7 mmol/L (3.5-5.1); Sodium Level 136 mmol/L (136-145)
[2021-01-06] MEDS: Insulin Lispro 100 UNIT/ML INSULN.PEN 10 UNIT SC ×3 (08:19→17:43)
[2021-01-06] MEDS: Allopurinol 300 MG Tablet PO (08:20)
[2021-01-06] MEDS: Iron Polysaccharide Complex 150 MG CAPSULE PO (08:20)
[2021-01-06] MEDS: Folic Acid 1 MG Tablet PO (08:20)
[2021-01-06] MEDS: Multivitamins,Ther W-Minerals Tablet 1 TABLET PO (08:20)
[2021-01-06 10:00] VITALS: PULSE 73; RESP 18; O2SAT 94
[2021-01-06 11:11] LABS: Bedside Glucose 158 mg/dL (70-110)
[2021-01-06] MEDS: Vancomycin IV 1,000 MG/200 ML BAG 200 MG IV (11:16)
[2021-01-06] MEDS: 0.9% Saline Lock 10 ML Syringe IV (11:16)
[2021-01-06 14:27] VITALS: BP 149/67; PULSE 70; RESP 16; TEMP 36.1; O2SAT 96
[2021-01-06 16:46] LABS: Bedside Glucose 182 mg/dL (70-110)
[2021-01-06 21:25] LABS: Bedside Glucose 195 mg/dL (70-110)
[2021-01-06] MEDS: Atorvastatin Calcium 20 MG Tablet PO (21:34)
[2021-01-07 05:17] LABS: Hemoglobin 9.2 g/dL (13.0-16.5)
[2021-01-07] MEDS: Magnesium Chloride 64 MG Delay Rel.Tablet 128 MG PO ×2 (06:05→17:21)
[2021-01-07] MEDS: Tamsulosin HCl 0.4 MG Capsule PO (06:06)
[2021-01-07] MEDS: Pregabalin 50 MG Capsule 100 MG PO ×2 (06:06→17:19)
[2021-01-07] MEDS: amLODIPine 5 MG Tablet PO (06:07)
[2021-01-07 06:08] VITALS: BP 114/47; PULSE 71; RESP 18; TEMP 36.6; O2SAT 93
[2021-01-07] MEDS: Cyanocobalamin 500 MCG Tablet 1000 MCG PO (06:08)
[2021-01-07] MEDS: 0.9% Saline Lock 10 ML Syringe IV ×3 (06:12→21:33)
[2021-01-07 06:16] LABS: Bedside Glucose 115 mg/dL (70-110)
[2021-01-07] MEDS: Multivitamins,Ther W-Minerals Tablet 1 TABLET PO (07:58)
[2021-01-07] MEDS: Folic Acid 1 MG Tablet PO (07:58)
[2021-01-07] MEDS: Allopurinol 300 MG Tablet PO (07:58)
[2021-01-07] MEDS: Iron Polysaccharide Complex 150 MG CAPSULE PO (07:58)
[2021-01-07] MEDS: Insulin Lispro 100 UNIT/ML INSULN.PEN 10 UNIT SC ×3 (07:58→17:20)
[2021-01-07 09:47] LABS: Vancomycin, Trough Level 19.9 ug/mL (5.0-15.0)
--- NOTE | 2021-01-07 09:57 | PCM.RX.CS ---
Consult Pharmacy has been consulted to manage selected antiobiotic: Vancomycin Type of Consult: Follow-up Suspected Infection: Osteomyelitis Labs: Sodium 136 mmol/L (136-145) 01/06/21 06:40 Potassium 4.7 mmol/L (3.5-5.1) 01/06/21 06:40 Chloride 105 mmol/L (98-107) 01/06/21 06:40 Carbon Dioxide 25.0 mmol/L (21.0-32.0) 01/06/21 06:40 Anion Gap 6 (5-15) 01/06/21 06:40 BUN 40 mg/dL (7-18) H 01/06/21 06:40 Creatinine 1.76 mg/dL (0.70-1.30) H 01/06/21 06:40 Est GFR (MDRD) Af Amer 48 mL/min (>60) L 01/06/21 06:40 Est GFR (MDRD) Non-Af 40 mL/min (>60) L 01/06/21 06:40 BUN/Creatinine Ratio 22.7 RATIO (10-20) H 01/06/21 06:40 Glucose 151 mg/dL (74-106) H 01/06/21 06:40 Vancomycin Trough 19.9 ug/mL (5.0-15.0) H 01/07/21 09:15 Random Vancomycin 17.9 ug/mL (0.0-15.0) H 01/05/21 09:14 Goal Trough: 15-20 mcg/mL Pharmacy Plan for Drug Dosing: VANCOMYCIN LEVEL RECEIVED Current Vancomycin Dose: 1000MG Q24H Number of Doses Received: MANY, ON VANCO BEFORE ADMISSION Vancomycin Level: 19.9 MG/DL Hours Since Last Dose: 22 Renal Function: SCR 1.76 FROM 01/06, CRCL 49 ML/MIN USING ADJ BW Renal Function Trend: STABLE Vancomycin Plan/Comments: CONTINUE CURRENT DOSING. TROUGH IS LIKELY SLIGHTLY LOWER SINCE LEVEL WAS A 22 HOUR LEVEL INSTEAD OF A 24 HOUR LEVEL. WILL GET ANOTHER TROUGH IN 3 DAYS. Pharmacy Service will continue to monitor and adjust dosing as required. Labs to be done on [date and time ordered]: 01/10/21 @ 7318
[2021-01-07 11:00] LABS: Bedside Glucose 117 mg/dL (70-110)
[2021-01-07] MEDS: Vancomycin IV 1,000 MG/200 ML BAG 200 MG IV (11:08)
--- NOTE | 2021-01-07 13:18 | RAD_ITS ---
STUDY: X-RAY - ABDOMEN/PELVIS REASON FOR EXAM: Male, 80 years old. diarrhea TECHNIQUE: Single AP view of the abdomen / pelvis. COMPARISON: None. FINDINGS: Normal visualized lung bases. There is an unremarkable bowel gas pattern. There is no demonstrated free abdominal air. The visualized liver, spleen and kidneys are grossly normal in size and morphology. Normal soft tissue structures. There operative changes of the lower lumbar spine. RAD/Abdomen Single View IMPRESSION: Nonobstructive bowel gas pattern. Electronically Signed: Anoop Garza MD ([place]) at 14:35 EST , Service support ,
[2021-01-07 14:57] VITALS: BP 164/52; PULSE 73; RESP 16; TEMP 36.8; O2SAT 94
[2021-01-07 16:36] LABS: Bedside Glucose 204 mg/dL (70-110)
[2021-01-07 21:20] LABS: Bedside Glucose 214 mg/dL (70-110)
[2021-01-07] MEDS: Atorvastatin Calcium 20 MG Tablet PO (21:27)
[2021-01-08 05:48] LABS: Absolute Lymphocyte Count 1.27 X10^3/uL (0.83-4.51); Absolute Neutrophil Count 4.8 X10^3/uL (2.0-7.7); Basophil# 0.02 X10^3/uL; Basophil% 0.3 % (0-1); Eosinophil# 0.21 X10^3/uL; Eosinophils% 3.1 % (0-5); Hematocrit 27.9 % (40-54); Lymphocyte # 1.27 X10^3/ul (4.0); Lymphocyte % 18.5 % (19-41); Mean Corp Hgb Conc 32.3 g/dL (32-36); Mean Corpuscular Hgb 29.1 pg (27.0-32.0); Mean Corpuscular Volume 90.3 fL (80-94); Mean Platelet Vol. 10.4 fl (6.2-12.0); Monocyte# 0.56 X10^3/uL; Monocyte% 8.2 % (0-10); NRBC Flagged by Analyzer 0 % (0-5); Neutrophil # 4.78 X10^3/uL (2.7-7.7); Neutrophil % 69.6 % (47-70); Platelet Count 216 K/mm3 (150-450); RBC Distribution Width CV 14.3 % (11.6-14.6); RBC Distribution Width SD 46.6 fl (35.1-43.9); Red Blood Count 3.09 M/mm3 (4.6-6.2); White Blood Count 6.9 K/mm3 (4.4-11.0)
[2021-01-08] MEDS: 0.9% Saline Lock 10 ML Syringe IV ×2 (05:58→10:44)
[2021-01-08] MEDS: Tamsulosin HCl 0.4 MG Capsule PO (05:59)
[2021-01-08] MEDS: Magnesium Chloride 64 MG Delay Rel.Tablet 128 MG PO ×2 (05:59→17:33)
[2021-01-08 06:00] VITALS: BP 129/49; PULSE 69; RESP 16; TEMP 36.2; O2SAT 95
[2021-01-08] MEDS: Cyanocobalamin 500 MCG Tablet 1000 MCG PO (06:00)
[2021-01-08] MEDS: amLODIPine 5 MG Tablet PO (06:01)
[2021-01-08] MEDS: Pregabalin 50 MG Capsule 100 MG PO ×2 (06:03→17:40)
[2021-01-08 06:17] LABS: Anion Gap 5 (5-15); BUN 67 mg/dL (7-18); BUN/Creat Ratio 32.4 RATIO (10-20); Calcium,Total 8.8 mg/dL (8.5-10.1); Chloride 106 mmol/L (98-107); Creatinine, Serum 2.07 mg/dL (0.70-1.30); EST Glomerular Filtration Rate 33 mL/min (>60); Est Glom Filt Rate - Afr Amer 40 mL/min (>60); Estimated Creatinine Clearance 31.32 ml/min; Glucose 124 mg/dL (74-106); Magnesium 1.4 mg/dL (1.6-2.6); Phosphorus 3.8 mg/dL (2.5-4.9); Potassium 4.9 mmol/L (3.5-5.1); Sodium Level 135 mmol/L (136-145)
[2021-01-08 06:20] LABS: Bedside Glucose 114 mg/dL (70-110)
--- NOTE | 2021-01-08 07:29 | NURSING ---
wound photo: left medial heel (late entry from 01/05/21)
--- NOTE | 2021-01-08 07:30 | NURSING ---
wound photo: right index finger (late entry from 01/05/21)
[2021-01-08] MEDS: Allopurinol 300 MG Tablet PO (08:17)
[2021-01-08] MEDS: Folic Acid 1 MG Tablet PO (08:17)
[2021-01-08] MEDS: Iron Polysaccharide Complex 150 MG CAPSULE PO (08:18)
[2021-01-08] MEDS: Multivitamins,Ther W-Minerals Tablet 1 TABLET PO (08:18)
[2021-01-08] MEDS: Insulin Lispro 100 UNIT/ML INSULN.PEN 10 UNIT SC ×3 (08:19→17:31)
--- NOTE | 2021-01-08 10:33 | PN_ITS ---
Patient Problems: Active and Suspected Problems Debility (Acute) Osteomyelitis of finger of right hand (Acute) Subjective: Patient seen and examined bedside. No new pedal complaints. Denies N/F/V/C/CP/SOB. - Physical Exam Vitals/I&O's: Vital Signs Temp Pulse Resp BP Pulse Ox 97.2 F L 69 16 129/49 H 95 01/08/21 06:00 01/08/21 06:00 01/08/21 06:00 01/08/21 06:00 01/08/21 06:00 Oxygen Delivery Method Room Air Weight: 137.467 kg Body Mass Index (BMI) 42.3 Intake and Output for Last 24 Hours 01/06/21 01/07/21 01/08/21 23:59 23:59 23:59 Intake Total 1571.25 / 1571.25 1386.25 / 1386.25 360 / 360 Balance 1571.25 / 1571.25 1386.25 / 1386.25 360 / 360 General: Alert, Oriented x3 HEENT: Atraumatic Abdomen: Obese Extremities: No clubbing, No cyanosis, Capillary Refill Less than 3 Seconds, No Calf Tenderness, Diminished Peripheral Pulses, Edema Skin: Ulcer/ Wound - Left plantar medial heel. Wound vac removed. No malodor, erythema, purulence, probing to bone, streaking, or other signs of infection. Skin is atrophic and hairless. Granular base with serosanguineous drainage after debridementmedial plantar left heel. Musculoskeletal: No Tenderness to Palpation of Joints or Extremities Neurological: - - absent light touch sensation consistent with neuropathy Psych/Mental Status: Normal Affect, Appropriate Microbiology Past 72 Hours 01/07/21 14:40 Stool C. difficile DNA Amplification - Final Laboratory Results 01/07/21 10:57: POC Glucose 117 H 01/07/21 16:30: POC Glucose 204 H 01/07/21 21:08: POC Glucose 214 H 01/08/21 05:20: WBC 6.9, RBC 3.09 L, Hgb 9.0 L, Hct 27.9 L, MCV 90.3, MCH 29.1, MCHC 32.3, RDW Std Deviation 46.6 H, RDW Coeff of Joao 14.3, Plt Count 216, MPV 10.4, Immature Gran % (Auto) 0.300, Neut % (Auto) 69.6, Lymph % (Auto) 18.5 L, Banks % (Auto) 8.2, Eos % (Auto) 3.1, Baso % (Auto) 0.3, Absolute Neuts (auto) 4.8, Absolute Lymphs (auto) 1.27, Nucleated RBC % 0 01/08/21 05:20: Sodium 135 L, Potassium 4.9, Chloride 106, Carbon Dioxide 24.0, Anion Gap 5, BUN 67 H, Creatinine 2.07 H, Estim Creat Clear Calc 31.32, Est GFR (MDRD) Af Amer 40 L, Est GFR (MDRD) Non-Af 33 L, BUN/Creatinine Ratio 32.4 H, Glucose 124 H, Calcium 8.8, Phosphorus 3.8, Magnesium 1.4 L 01/08/21 06:13: POC Glucose 114 H Current Medications Acetaminophen (Acetaminophen 500 Mg Tablet) 1,000 mg PO Q6H PRN PRN PRN Reason: Pain Score 1-3 [facility] ([facility] 300 [facility]) [facility] Admin: 01/08/21 08:17 Dose: 300 mg Documented by: Amlodipine Besylate (Amlodipine 5 Mg Tablet) 5 mg PO DAILY [facility] Last Admin: 01/08/21 06:01 Dose: 5 mg Documented by: Atorvastatin Calcium (Atorvastatin Calcium 20 Mg Tablet) 20 mg PO QHS [facility] Last Admin: 01/07/21 21:27 Dose: 20 mg Documented by: Bisacodyl (Bisacodyl 10 Mg Suppository) 10 mg RECTAL DAILY PRN PRN Reason: Constipation Cyanocobalamin (Cyanocobalamin 500 Mcg Tablet) 1,000 mcg PO DAILY [facility] Last Admin: 01/08/21 06:00 Dose: 1,000 mcg Documented by: Folic Acid (F[facility] 1 Mg Tablet) [facility] Admin: 01/08/21 08:17 Dose: 1 mg Documented by: Heparin Sodium (Beef Lung) (Heparin Pf Lock 10 Units/Ml 50 Units/5 Ml Syringe) 50 units IV UD PRN PRN Reason: PICC Line Heparin Flush Sodium Chloride () 250 mls @ 15 mls/hr IV .[id number] PRN PRN Reason: Saline Flush Last Infusion: 01/07/21 18:14 Dose: 0 mls/hr Documented by: Sodium Chloride () 250 mls @ 15 mls/hr IV .[id number] PRN PRN Reason: Additional IVPB Infusion Vancomycin IV Pharmacy to Dose (1 ea/ Sodium Chloride) 100 mls @ 100 mls/hr IV PRN PRN PRN Reason: PHARMACY TO DOSE Vancomycin HCl (Vancomycin) 1,000 mg in 200 mls @ 200 mls/hr IV Q24H [facility] Last Infusion: 01/07/21 12:49 Dose: Infused Documented by: Insulin Glargine (Insulin Glargine 100 Units/Ml Pen) 35 units SC QHS [facility] Last Admin: 01/07/21 21:28 Dose: 35 units Documented by: Insulin Human Lispro (Insulin Lispro 100 Unit/Ml Insuln.Pen) 10 unit SC TIDAC [facility] Last Admin: 01/08/21 08:19 Dose: 10 units Documented by: Lactobacillus Acidophilus (Lactobacillus Acidophilus) 1 tablet PO BID [facility] Last Admin: 01/08/21 06:00 Dose: 1 tablet Documented by: Magnesium Chloride (Magnesium Chloride 64 Mg Delay Rel.Tablet) 128 mg PO BID [facility] Last Admin: 01/08/21 05:59 Dose: 128 mg Documented by: Magnesium Hydroxide (Magnesium Hydroxide 30 Ml Udc) 30 ml PO DAILY PRN PRN Reason: Constipation Multivitamins/Minerals (Multivitamins,Ther W-Minerals Tablet) [facility] Last Admin: 01/08/21 08:18 Dose: 1 tablet Documented by: Nutritional Formula (Nutritional Supplement (Rasta) Packet) [facility] Last Admin: 01/08/21 08:17 Dose: 1 packet Documented by: Oxycodone HCl (Oxycodone 5 Mg Tablet) 5 mg PO Q4H PRN PRN PRN Reason: Pain Score 4-10 Polyethylene Glycol (Polyethylene Glycol 3350 17 Gm Packet) 17 gm PO DAILY PRN PRN Reason: Constipation Polysaccharide Iron Complex (Iron Polysaccharide Complex 150 Mg Capsule) [facility] Last Admin: 01/08/21 08:18 Dose: 150 mg Documented by: Pregabalin (Pregabalin 50 Mg Capsule) 100 mg PO BID [facility] Last Admin: 01/08/21 06:03 Dose: 100 mg Documented by: Senna/Docusate Sodium (Senna/Docusate Sodium 1 Tablet) 1 tablet PO BID PRN PRN Reason: Constipation Sodium Chloride (0.9% Saline Lock 10 Ml Syringe) 10 - 40 ml IV UD PRN PRN Reason: Open End PICC Flush Last Admin: 01/08/21 05:58 Dose: 20 ml Documented by: Sodium Chloride (0.9 % Nacl (Sterile) Posiflush 10 Ml) 10 - 40 ml IV UD PRN PRN Reason: Port access or dressing change Tamsulosin HCl (Tamsulosin Hcl 0.4 Mg Capsule) 0.4 mg PO DAILY [facility] Last Admin: 01/08/21 05:59 Dose: 0.4 mg Documented by: Medical Necessity - Tobacco Use Smoking Status: Former smoker Tobacco Use: Cigarettes, Cigars Assessment/Plan All Active Problems Debility (Acute) Osteomyelitis of finger of right hand (Acute) Left heel ulcer with fat layer exposed, Hale grade 1, no local signs of infection today History of left heel ulcer infection treated at facility; resolved Peripheral vascular disease (procedure planned for tomorrow at ) Diabetes Neuropathy Other comorbidities Finger osteomyelitis Reviewed and discussed his case. He is afebrile and his vital signs are stable. He does not have leukocytosis. He is reassured no deep tissue or signs of infection are noted on his foot today. Verbal consent was obtained to perform subcutaneous excisional debridement to remove devitalized subcutaneous tissue, fibrous tissue, biofilm and slough. Minimal hematogenous drainage was noted and pressure was applied. He tolerated this well. A dry dressing was applied. Predebridement measurements were 3x4x0.2cm and post debridement 3.1x4.1x0.5cm. A wound VAC placed on 150 mmHg continuously will be applied later after his return from procedure to resume his previously designated wound care plan he has been undergoing at the [place] [facility]. I recommend additional strict offloading by floating his heels over pillows while in bed. Additional offloading would include edema management. It is noted he relates a sensitivity to the elastic [place] wrap and and I recommend applying a thin layer of Kerlix or web roll prior to the [place] wrap. To periodically elevate limbs and perform lower extremity muscular contraction throughout the day to also aid in edema management. He reports had a noninvasive vascular study performed at an outside facility and plans to have vascular intervention performed this upcoming Friday at . Records will be requested from this outside facility. They have yet to be obtained. The podiatry team will continue to follow him weekly. Plan to follow up at his established [facility] [place] Please do not hesitate to call if you have any questions. Mayuri Casiano DPM, [facility] [phone]
[2021-01-08] MEDS: Vancomycin IV 1,000 MG/200 ML BAG 200 MG IV (10:40)
--- NOTE | 2021-01-08 10:59 | PCM.RX.CS ---
Consult Pharmacy has been consulted to manage selected antiobiotic: Vancomycin Type of Consult: Follow-up Suspected Infection: Osteomyelitis Prior Doses of Antibiotics Received/Current Regimen: On 1gm iv q24h Labs: Sodium 135 mmol/L (136-145) L 01/08/21 05:20 Potassium 4.9 mmol/L (3.5-5.1) 01/08/21 05:20 Chloride 106 mmol/L (98-107) 01/08/21 05:20 Carbon Dioxide 24.0 mmol/L (21.0-32.0) 01/08/21 05:20 Anion Gap 5 (5-15) 01/08/21 05:20 BUN 67 mg/dL (7-18) H 01/08/21 05:20 Creatinine 2.07 mg/dL (0.70-1.30) H 01/08/21 05:20 Est GFR (MDRD) Af Amer 40 mL/min (>60) L 01/08/21 05:20 Est GFR (MDRD) Non-Af 33 mL/min (>60) L 01/08/21 05:20 BUN/Creatinine Ratio 32.4 RATIO (10-20) H 01/08/21 05:20 Glucose 124 mg/dL (74-106) H 01/08/21 05:20 Vancomycin Trough 19.9 ug/mL (5.0-15.0) H 01/07/21 09:15 Random Vancomycin 17.9 ug/mL (0.0-15.0) H 01/05/21 09:14 Microbiology: Microbiology 01/07/21 14:40 Stool C. difficile DNA Amplification - Final Weight used for dosin kg Estimated Creatinine Clearance: ~42 ml/min Goal Trough: 15-20 mcg/mL Pharmacy Plan for Drug Dosing: Renal Cr has changed from 1.76 to 2.07. Will get trough level tomorrow 2.9.21 in AM. Pharmacy Service will continue to monitor and adjust dosing as required. Follow-Up Labs: Trough Vancomycin - 2.9.21 @0930 before 1000 dose
[2021-01-08 11:06] LABS: Bedside Glucose 114 mg/dL (70-110)
--- NOTE | 2021-01-08 13:04 | NURSING ---
Dr Rivera calls in regards to preop orders for procedure tomorrow. Orders for NPO after midnight and then given 1/2 dose of insulins prior to procedure.
--- NOTE | 2021-01-08 14:05 | PHA.CONS_ITS ---
<Helga Tellez M - Last Filed: 01/08/21 14:06> Progress Note - Pharmacy Subjective: TCU ADMISSION Objective: Allergies aspirin [ASA] Allergy (Verified 01/04/21 20:25) Rash doxycycline Allergy (Verified 01/04/21 20:25) Rash levofloxacin [From Levaquin] Allergy (Verified 01/04/21 20:25) Diarrhea Penicillins Allergy (Verified 01/04/21 20:25) Rash Sulfa (Sulfonamide Antibiotics) Allergy (Verified 01/04/21 20:25) Rash Current Medications Generic Name Dose Route Start Last Admin Trade Name Freq PRN Reason Stop Dose Admin Acetaminophen 1,000 mg 01/04/21 22:37 Acetaminophen 500 Mg Tablet PO Q6H PRN PRN Pain Score 1-3 Allopurinol 300 mg 01/05/21 08:00 01/08/21 08:17 Allopurinol 300 Mg Tablet PO 300 mg DAILYCM DAISY Administration Amlodipine Besylate 5 mg 01/05/21 06:00 01/08/21 06:01 Amlodipine 5 Mg Tablet PO 5 mg DAILY DAISY Administration Atorvastatin Calcium 20 mg 01/05/21 22:00 01/07/21 21:27 Atorvastatin Calcium 20 Mg Tablet PO 20 mg QHS DAISY Administration Bisacodyl 10 mg 01/04/21 22:38 Bisacodyl 10 Mg Suppository RECTAL DAILY PRN Constipation Cyanocobalamin 1,000 mcg 01/05/21 06:00 01/08/21 06:00 Cyanocobalamin 500 Mcg Tablet PO 1,000 mcg DAILY DAISY Administration Folic Acid 1 mg 01/05/21 08:00 01/08/21 08:17 Folic Acid 1 Mg Tablet PO 1 mg DAILYCM DAISY Administration Heparin Sodium (Beef Lung) 50 units 01/04/21 20:28 Heparin Pf Lock 10 Units/Ml 50 Units/5 Ml Syringe IV UD PRN PICC Line Heparin Flush Sodium Chloride 250 mls @ 15 mls/hr 01/04/21 20:28 01/07/21 18:14 IV 0 mls/hr .[id number] PRN Infusion Saline Flush Sodium Chloride 250 mls @ 15 mls/hr 01/04/21 20:28 IV .[id number] PRN Additional IVPB Infusion Vancomycin IV Pharmacy to Dose 100 mls @ 100 mls/hr 01/04/21 23:04 1 ea/ Sodium Chloride IV PRN PRN PHARMACY TO DOSE Vancomycin HCl 1,000 mg in 200 mls @ 200 mls/hr 01/05/21 10:00 01/08/21 12:32 Vancomycin IV Infused Q24H DAISY Infusion Insulin Glargine 35 units 01/04/21 22:56 01/07/21 21:28 Insulin Glargine 100 Units/Ml Pen SC 35 units QHS DAISY Administration Insulin Human Lispro 10 unit 01/05/21 06:45 01/08/21 11:35 Insulin Lispro 100 Unit/Ml Insuln.Pen SC 10 units TIDAC DAISY Administration Lactobacillus Acidophilus 1 tablet 01/07/21 18:00 01/08/21 06:00 Lactobacillus Acidophilus PO 1 tablet BID DAISY Administration Magnesium Chloride 128 mg 01/05/21 06:00 01/08/21 05:59 Magnesium Chloride 64 Mg Delay Rel.Tablet PO 128 mg BID DAISY Administration Magnesium Hydroxide 30 ml 01/04/21 22:38 Magnesium Hydroxide 30 Ml Udc PO DAILY PRN Constipation Multivitamins/Minerals 1 tablet 01/05/21 08:00 01/08/21 08:18 Multivitamins,Ther W-Minerals Tablet PO 1 tablet DAILYCM [facility] Administration Nutritional Formula 1 packet 01/05/21 17:00 01/08/21 08:17 Nutritional Supplement (Rasta) Packet PO 1 packet BIDCM [facility] Administration Oxycodone HCl 5 mg 01/04/21 22:37 Oxycodone 5 Mg Tablet PO Q4H PRN PRN Pain Score 4-10 Polyethylene Glycol 17 gm 01/08/21 08:06 Polyethylene Glycol 3350 17 Gm Packet PO DAILY PRN Constipation Polysaccharide Iron Complex 150 mg 01/06/21 08:00 01/08/21 08:18 Iron Polysaccharide Complex 150 Mg Capsule PO 150 mg DAILYCM [facility] Administration Pregabalin 100 mg 01/04/21 22:00 01/08/21 06:03 Pregabalin 50 Mg Capsule PO 100 mg BID [facility] Administration Senna/Docusate Sodium 1 tablet 01/08/21 08:06 Senna/Docusate Sodium 1 Tablet PO BID PRN Constipation Sodium Chloride 10 - 40 ml 01/04/21 20:28 01/08/21 10:44 0.9% Saline Lock 10 Ml Syringe IV 20 ml UD PRN Administration Open End PICC Flush Sodium Chloride 10 - 40 ml 01/04/21 20:28 0.9 % Nacl (Sterile) Posiflush 10 Ml IV UD PRN Port access or dressing change Tamsulosin HCl 0.4 mg 01/05/21 06:00 01/08/21 05:59 Tamsulosin Hcl 0.4 Mg Capsule PO 0.4 mg DAILY DAISY Administration Problem List Debility (Acute) Osteomyelitis of finger of right hand (Acute) Ulcer of left heel (Chronic) Gout (Chronic) Hypertension (Chronic) Vitamin B12 deficiency (Chronic) Folate deficiency (Chronic) Diabetes mellitus (Chronic) Hypomagnesemia (Chronic) Diabetic polyneuropathy (Chronic) Hyperlipidemia (Chronic) Benign prostatic hyperplasia (Chronic) Chronic kidney disease (Chronic) Chronic inflammatory demyelinating polyneuritis (Chronic) Ulcer of left foot with fat layer exposed (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30) H 01/08/21 05:20 Est GFR (MDRD) Af Amer 40 mL/min (>60) L 01/08/21 05:20 Est GFR (MDRD) Non-Af 33 mL/min (>60) L 01/08/21 05:20 BUN/Creatinine Ratio 32.4 RATIO (10-20) H 01/08/21 05:20 Glucose 124 mg/dL (74-106) H 01/08/21 05:20 Vancomycin Trough 19.9 ug/mL (5.0-15.0) H 01/07/21 09:15 Random Vancomycin 17.9 ug/mL (0.0-15.0) H 01/05/21 09:14 Assessment/Plan: 1. Pain: Tylenol 1000mg Q6h PRN Pain 1-3, Oxycodone 5mg PO Q4h PRN pain 4-10. Please continue to monitor for increased/decreased S/S pain, PRN medication usage. 2. Osteomyelitis of the Right Index Finger: Vancomycin 1g IV Q24hr. Please continue to monitor for resolution of infection. ID consulted, plan is 4-6 weeks of IV Abx per note at this time 3. Hypertension: Norvasc 5mg PO Daily. Please continue to monitor BP, electrolytes, S/S swelling. 4. Hyperlipidemia: Lipitor 20mg PO QHS. Please continue to monitor Lipid panel annually or sooner if clinically indicated. *5. Gout: Allopurinol 300mg PO Daily. Patient's current CrCl is 31 mL/min, dosing guidelines suggest a max daily dosage of 150mg PO Daily. Please evaluate if clinically appropriate for dose reduction, thank you. 6. Diabetes Type II: Lantus 35 unit SC QHS, Humalog 10 unit SC TIDCM. Please continue to monitor POC glucose, S/S hyper/hypoglycemia. Last BG = 124. 7. Diabetic Neuropathy: Lyrica 100mg PO BID. This is a Beer's Criteria medication, please monitor for QUENCHING CAR OPERATOR effects with use. The patient is currently on an appropriate dose based on renal function at this time. 8. BPH: Flomax 0.4mg PO Daily. Please continue to monitor for medication effectiveness, decreased BPH symptoms. 9. General Wellness: Vitamin B12 1000mcg PO Daily, Folic Acid 1mg PO Daily, Acidophilus 1 tab PO BID, Magnesium Chloride 128mg PO BID, MVI w/minerals 1 tab PO Daily. Please continue to monitor Psychotropic Medications: None Unnecessary Medications: Ferrex 150mg PO Daily. Please evaluate use, no iron studies on file with [facility], thank you. Bowel Regimen: Dulcolax 10mg [place] Daily PRN, MOM 30mL PO Daily PRN, Miralax 17g PO Daily PRN, Senna/Docusate 1 tab PO BID PRN. Please continue to monitor for increased/decreased constipation and/or diarrhea. Date of Note:: 01/08/21 - Provider Comments Provider responsibility: Provider responsible to enter orders to implement recommendations <Sameer Whelan Chi - Last Filed: 01/08/21 16:57> Progress Note - Pharmacy Subjective: [] Objective: Allergies aspirin [ASA] Allergy (Verified 01/04/21 20:25) Rash doxycycline Allergy (Verified 01/04/21 20:25) Rash levofloxacin [From Levaquin] Allergy (Verified 01/04/21 20:25) Diarrhea Penicillins Allergy (Verified 01/04/21 20:25) Rash Sulfa (Sulfonamide Antibiotics) Allergy (Verified 01/04/21 20:25) Rash Current Medications Generic Name Dose Route Start Last Admin Trade Name Freq PRN Reason Stop Dose Admin Acetaminophen 1,000 mg 01/04/21 22:37 Acetaminophen 500 Mg Tablet PO Q6H PRN PRN Pain Score 1-3 Allopurinol 300 mg 01/05/21 08:00 01/08/21 08:17 Allopurinol 300 Mg Tablet PO 300 mg DAILYCM DAISY Administration Amlodipine Besylate 5 mg 01/05/21 06:00 01/08/21 06:01 Amlodipine 5 Mg Tablet PO 5 mg DAILY DAISY Administration Atorvastatin Calcium 20 mg 01/05/21 22:00 01/07/21 21:27 Atorvastatin Calcium 20 Mg Tablet PO 20 mg QHS DAISY Administration Bisacodyl 10 mg 01/04/21 22:38 Bisacodyl 10 Mg Suppository RECTAL DAILY PRN Constipation Cyanocobalamin 1,000 mcg 01/05/21 06:00 01/08/21 06:00 Cyanocobalamin 500 Mcg Tablet PO 1,000 mcg DAILY DAISY Administration Folic Acid 1 mg 01/05/21 08:00 01/08/21 08:17 Folic Acid 1 Mg Tablet PO 1 mg DAILYCM DAISY Administration Heparin Sodium (Beef Lung) 50 units 01/04/21 20:28 Heparin Pf Lock 10 Units/Ml 50 Units/5 Ml Syringe IV UD PRN PICC Line Heparin Flush Sodium Chloride 250 mls @ 15 mls/hr 01/04/21 20:28 01/07/21 18:14 IV 0 mls/hr .[id number] PRN Infusion Saline Flush Sodium Chloride 250 mls @ 15 mls/hr 01/04/21 20:28 IV .[id number] PRN Additional IVPB Infusion Vancomycin IV Pharmacy to Dose 100 mls @ 100 mls/hr 01/04/21 23:04 1 ea/ Sodium Chloride IV PRN PRN PHARMACY TO DOSE Vancomycin HCl 1,000 mg in 200 mls @ 200 mls/hr 01/05/21 10:00 01/08/21 12:32 Vancomycin IV Infused Q24H DAISY Infusion Insulin Glargine 35 units 01/04/21 22:56 01/07/21 21:28 Insulin Glargine 100 Units/Ml Pen SC 35 units QHS DAISY Administration Insulin Human Lispro 10 unit 01/05/21 06:45 01/08/21 11:35 Insulin Lispro 100 Unit/Ml Insuln.Pen SC 10 units TIDAC DAISY Administration Lactobacillus Acidophilus 1 tablet 01/07/21 18:00 01/08/21 06:00 Lactobacillus Acidophilus PO 1 tablet BID DAISY Administration Magnesium Chloride 128 mg 01/05/21 06:00 01/08/21 05:59 Magnesium Chloride 64 Mg Delay Rel.Tablet PO 128 mg BID DAISY Administration Magnesium Hydroxide 30 ml 01/04/21 22:38 Magnesium Hydroxide 30 Ml Udc PO DAILY PRN Constipation Multivitamins/Minerals 1 tablet 01/05/21 08:00 01/08/21 08:18 Multivitamins,Ther W-Minerals Tablet PO 1 tablet DAILYCM [facility] Administration Nutritional Formula 1 packet 01/05/21 17:00 01/08/21 08:17 Nutritional Supplement (Rasta) [facility] Administration Oxycodone HCl 5 mg 01/04/21 22:37 Oxycodone 5 Mg Tablet PO Q4H PRN PRN Pain Score 4-10 Polyethylene Glycol 17 gm 01/08/21 08:06 Polyethylene Glycol 3350 17 Gm Packet PO DAILY PRN Constipation Polysaccharide Iron Complex 150 mg 01/06/21 08:00 01/08/21 08:18 Iron Polysaccharide Complex 150 Mg Capsule PO 150 mg DAILYCM [facility] Administration Pregabalin 100 mg 01/04/21 22:00 01/08/21 06:03 Pregabalin 50 Mg Capsule PO 100 mg BID DAISY Administration Senna/Docusate Sodium 1 tablet 01/08/21 08:06 Senna/Docusate Sodium 1 Tablet PO BID PRN Constipation Sodium Chloride 10 - 40 ml 02/04/21 20:28 01/08/21 10:44 0.9% Saline Lock 10 Ml Syringe IV 20 ml UD PRN Administration Open End PICC Flush Sodium Chloride 10 - 40 ml 01/04/21 20:28 0.9 % Nacl (Sterile) Posiflush 10 Ml IV UD PRN Port access or dressing change Tamsulosin HCl 0.4 mg 01/05/21 06:00 01/08/21 05:59 Tamsulosin Hcl 0.4 Mg Capsule PO 0.4 mg DAILY DAISY Administration Problem List Debility (Acute) Osteomyelitis of finger of right hand (Acute) Ulcer of left heel (Chronic) Gout (Chronic) Hypertension (Chronic) Vitamin B12 deficiency (Chronic) Folate deficiency (Chronic) Diabetes mellitus (Chronic) Hypomagnesemia (Chronic) Diabetic polyneuropathy (Chronic) Hyperlipidemia (Chronic) Benign prostatic hyperplasia (Chronic) Chronic kidney disease (Chronic) Chronic inflammatory demyelinating polyneuritis (Chronic) Ulcer of left foot with fat layer exposed (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) Other specified peripheral vascular diseases (Chronic) Edema, lower extremity (Chronic) Vital Signs Temp Pulse Resp BP Pulse Ox 97.3 F L 72 20 H 140/58 H 96 01/08/21 14:11 01/08/21 14:11 01/08/21 14:11 01/08/21 14:11 01/08/21 14:11 Oxygen Delivery Method Room Air Weight: 137.467 kg Body Mass Index (BMI) 42.3 Sodium 135 mmol/L (136-145) L 01/08/21 05:20 Potassium 4.9 mmol/L (3.5-5.1) 01/08/21 05:20 Chloride 106 mmol/L (98-107) 01/08/21 05:20 Carbon Dioxide 24.0 mmol/L (21.0-32.0) 01/08/21 05:20 Anion Gap 5 (5-15) 01/08/21 05:20 BUN 67 mg/dL (7-18) H 01/08/21 05:20 Creatinine 2.07 mg/dL (0.70-1.30) H 01/08/21 05:20 Est GFR (MDRD) Af Amer 40 mL/min (>60) L 01/08/21 05:20 Est GFR (MDRD) Non-Af 33 mL/min (>60) L 01/08/21 05:20 BUN/Creatinine Ratio 32.4 RATIO (10-20) H 01/08/21 05:20 Glucose 124 mg/dL (74-106) H 01/08/21 05:20 Vancomycin Trough 19.9 ug/mL (5.0-15.0) H 01/07/21 09:15 Random Vancomycin 17.9 ug/mL (0.0-15.0) H 01/05/21 09:14 Assessment/Plan: Psychotropic Medications: Unnecessary Medications: Bowel Regimen: - Provider Comments Provider responsibility: Provider responsible to enter orders to implement recommendations Provider Comments to Recommendations by Pharmacy: Agree
[2021-01-08 14:11] VITALS: BP 140/58; PULSE 72; RESP 20; TEMP 36.3; O2SAT 96
--- NOTE | 2021-01-08 16:44 | CHAPLAIN ---
Type of Pastoral Visit _x__ Initial Visit ___ Follow-up Visit ___ On-call Visit ___ General Patient Visit ___ Spiritual Assessment ___ Family Conference ___ Bereavement ___ Rapid Response ___ Code Blue ___ Other (describe below) Pastoral Care Referral From _x__ Patient ___ Family ___ Nurse ___ Physician ___ Potato Spotter ___ Road Conductor ___ Other (describe below) Sacrament/Intervention _x__ Active listening ___ Anointing ___ Quaker ___ Bereavement ___ Communion ___ Verena exploration ___ _x__ Life review _x__ Prayer ___ Reconciliation ___ Sacrament of Sick _x__ Supportive presence ___ Wedding ___ Other (describe below) Pastoral Comments
[2021-01-08 16:45] LABS: Bedside Glucose 132 mg/dL (70-110)
[2021-01-08 21:15] LABS: Bedside Glucose 193 mg/dL (70-110)
[2021-01-08] MEDS: Atorvastatin Calcium 20 MG Tablet PO (21:23)
[2021-01-09 05:41] VITALS: BP 142/58; PULSE 65; RESP 18; TEMP 36.7; O2SAT 98
[2021-01-09 06:15] LABS: Bedside Glucose 98 mg/dL (70-110)
--- NOTE | 2021-01-09 09:48 | NURSING ---
Pt currently at an appt. if patient returns in early afternoon, will reapply the wound VAC to the left heel otherwise will reapply the VAC tomorrow. Nursing aware.
--- NOTE | 2021-01-09 22:53 | NURSING ---
TC to pt son, reports pt was being kept over night dt reactions to a medication that he had today and also having low BP, states the hosp will call him in am with report and plan
--- NOTE | 2021-01-10 15:19 | NURSING ---
spoke with [facility] regarding vascular study of lower extremity. they have no recorse, they gave number for wound center. They transfered this copywriter to vascular and they have records of an arterial segmental of BLEs. nothing else.
--- NOTE | 2021-01-10 19:00 | DCINST_ITS ---
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) Other specified peripheral vascular diseases (Chronic) Edema, lower extremity (Chronic) You will use the following diet at home:: No restrictions, Regular Your food should be the consistency of: Regular Your liquids should be the consistency of: Regular/Thin Discharge Activity: Return to Normal Activity, May Shower, Use Walker Weight Bearing Status: Weight bearing as tolerated Call your doctor if you observe: Fever of 101 or Higher, Inability to urinate, Inability to have a bowel movement, Shortness of breath, Chest pain, Uncontrolled pain Allergies/Adverse Reactions: Allergies aspirin [ASA] Allergy (Verified 01/04/21 20:25) Rash doxycycline Allergy (Verified 01/04/21 20:25) Rash levofloxacin [From Levaquin] Allergy (Verified 01/04/21 20:25) Diarrhea Penicillins Allergy (Verified 01/04/21 20:25) Rash Sulfa (Sulfonamide Antibiotics) Allergy (Verified 01/04/21 20:25) Rash Medications to take at Discharge Allopurinol 300 mg PO DAILY 01/04/21 Amlodipine [Norvasc] 5 mg PO DAILY 01/04/21 Cyanocobalamin (Vitamin B-12) [B-12] 1,000 mcg PO DAILY 01/04/21 Docusate Sodium 100 mg PO BID 01/04/21 Fluoride (Sodium) [Prevident] 1 applicatio TOPICAL BID 01/04/21 Folic Acid 1 mg PO DAILY 01/04/21 Insulin Human 70/30 [Novolog Mix 70-30 Flexpen Syrn] 60 - 70 units SC BIDCM 01/04/21 Magnesium Oxide 400 mg PO BID 01/04/21 Multivitamin with Minerals [Multiple Vitamin] 1 ea PO DAILY 01/04/21 Multivitamin/Iron/Folic Acid [Centrum Adults Tablet] 1 tab PO DAILY 01/04/21 Pregabalin [Lyrica] 100 mg PO BID 01/04/21 Simvastatin 20 mg PO DAILY 01/04/21 Tamsulosin HCl 0.4 mg PO DAILY 01/04/21 Vancomycin IV [Vancomycin] 1 gm IV Q24H 01/04/21 Primary Care Physician: Surinder Del Rosario [Other] Please follow up with your Primary Care Physician in: 1 week. Test Results: Test results from this visit will be discussed in further detail at your follow- up appointment, if applicable. Please Follow Up With: Deni Rivera When: Left Lower Extremity Angiography Proposed Discharge Date: 01/10/21
--- NOTE | 2021-01-10 19:01 | DS.PCM_ITS ---
Discharge Date and Diagnosis - Problem List Patient Problems: Active and Suspected Problems Debility (Acute) Osteomyelitis of finger of right hand (Acute) Date of Admission: 01/04/21 Date of Discharge: 01/10/21 - Primary Discharge Diagnosis Acute Problems: Active Problems Debility (Acute) Osteomyelitis of finger of right hand (Acute) - Secondary Discharge Diagnosis Chronic Problems: Chronic Problems Ulcer of left heel (Chronic) Gout (Chronic) Hypertension (Chronic) Vitamin B12 deficiency (Chronic) Folate deficiency (Chronic) Diabetes mellitus (Chronic) Hypomagnesemia (Chronic) Diabetic polyneuropathy (Chronic) Hyperlipidemia (Chronic) Benign prostatic hyperplasia (Chronic) Chronic kidney disease (Chronic) Chronic inflammatory demyelinating polyneuritis (Chronic) Ulcer of left foot with fat layer exposed (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) Other specified peripheral vascular diseases (Chronic) Edema, lower extremity (Chronic) Hospital Course and Treatment Consultations 01/04/21 20:19 Consult: Onc/Wound/group work program director Routine Comment: Reason for Consult:: Wound Vac Left heel diabetic ulcer; Right index finger ulceration Operations: None Procedures: None Summary of Care Provided: The patient is a 80 year old Male with below past medical history hospitalized for osteomyelitis right index finger, requiring intermediate frame tender intravenous antibiotics, complicated by left heel ulcer requiring wound VAC therapy, admitted to TCU with debility, here for rehabilitation, strengthening, intravenous antibiotics, wound care, prior to discharge home alone. 01/10/2021 Resident went to [facility], underwent outpatient left lower extremity angiogram with runoff, complicated by reaction to contrast. 01/10/2021 Discharge to [facility]. Patient Problems: Active and Suspected Problems Debility (Acute) Osteomyelitis of finger of right hand (Acute) - Physical Exam Vitals/I&O's: Vital Signs Temp Pulse Resp BP Pulse Ox 98.0 F 65 18 142/58 H 98 01/09/21 05:41 01/09/21 05:41 01/09/21 05:41 01/09/21 05:41 01/09/21 05:41 Oxygen Delivery Method Room Air Weight: 137.467 kg Body Mass Index (BMI) 42.3 Intake and Output for Last 24 Hours 01/08/21 01/09/21 01/10/21 23:59 23:59 23:59 Intake Total 920 / 920 0 / 0 Balance 920 / 920 0 / 0 Microbiology Past 72 Hours 01/07/21 14:40 Stool Enteric Bacteriology - Final 01/07/21 14:40 Stool C. difficile DNA Amplification - Final Discharge Diet: No Restrictions Discharge Activity: Return to Normal Activity, May Shower, Use Walker Weight Bearing Status: Weight bearing as tolerated Call your doctor if you observe: Fever of 101 or Higher, Inability to urinate, Inability to have a bowel movement, Shortness of breath, Chest pain, Uncontrolled pain Home Medications: Medications to take at Discharge Allopurinol 300 mg PO DAILY 01/04/21 Amlodipine [Norvasc] 5 mg PO DAILY 01/04/21 Cyanocobalamin (Vitamin B-12) [B-12] 1,000 mcg PO DAILY 01/04/21 Docusate Sodium 100 mg PO BID 01/04/21 Fluoride (Sodium) [Prevident] 1 applicatio TOPICAL BID 01/04/21 Folic Acid 1 mg PO DAILY 01/04/21 Insulin Human 70/30 [Novolog Mix 70-30 Flexpen Syrn] 60 - 70 units SC BIDCM 01/04/21 Magnesium Oxide 400 mg PO BID 01/04/21 Multivitamin with Minerals [Multiple Vitamin] 1 ea PO DAILY 01/04/21 Multivitamin/Iron/Folic Acid [Centrum Adults Tablet] 1 tab PO DAILY 01/04/21 Pregabalin [Lyrica] 100 mg PO BID 01/04/21 Simvastatin 20 mg PO DAILY 01/04/21 Tamsulosin HCl 0.4 mg PO DAILY 01/04/21 Vancomycin IV [Vancomycin] 1 gm IV Q24H 01/04/21 Primary Care Physician: Surinder Del Rosario [Other] Please follow up with your Primary Care Physician in: 1 week. Please Follow Up With: Deni Rivera When: Left Lower Extremity Angiography Disposition: Acute care Hospital Minutes spent on discharge:: 30 Patient Condition:: Guarded Medical Necessity - Tobacco Use Smoking Status: Former smoker Tobacco Use: Cigarettes, Cigars Meaningful Use Info Meaningful Use Diagnoses (Choose all that apply): None applicable
--- NOTE | 2021-01-15 14:32 | MDS.RN ---
Information for the mds was obtained from review of the clinical record, interview of resident, staff, and direct observation of resident's care.
== END 2021-01-09 06:30 | disposition short-term general hospital (02) | DRG 940 ==
PROVIDERS: Admitting Provider Family Medicine Geriatric Medicine; Visit Provider Family Medicine Geriatric Medicine
DX: T23.021D Burn of unspecified degree of single right finger (nail) except thumb, subsequent encounter (principal); M86.141 Other acute osteomyelitis, right hand; G61.81 Chronic inflammatory demyelinating polyneuritis; L97.422 Non-pressure chronic ulcer of left heel and midfoot with fat layer exposed; E11.69 Type 2 diabetes mellitus with other specified complication; E11.621 Type 2 diabetes mellitus with foot ulcer; I12.9 Hypertensive chronic kidney disease with stage 1 through stage 4 chronic kidney disease, or unspecified chronic kidney disease; N18.9 Chronic kidney disease, unspecified; E78.5 Hyperlipidemia, unspecified; N40.0 Benign prostatic hyperplasia without lower urinary tract symptoms; E11.42 Type 2 diabetes mellitus with diabetic polyneuropathy; E11.22 Type 2 diabetes mellitus with diabetic chronic kidney disease; M10.9 Gout, unspecified; X08.8XXD Exposure to other specified smoke, fire and flames, subsequent encounter; Z87.891 Personal history of nicotine dependence; B96.89 Other specified bacterial agents as the cause of diseases classified elsewhere
CPT/HCPCS: 36415; 71045; 74018; 80048; 80202; 82962; 83735; 84100; 85014; 85018; 85025; 87493; 87506; 87635; 97110; 97116; 97162; 97166; 97530; 97535; 97802; J7050; U0005; A4216; U0003

== ENCOUNTER 2021-01-12 20:43 | Inpatient (IN) | payer MEDICARE, BC, SELFPAY ==
[2021-01-12 21:52] VITALS: BP 178/84; PULSE 74; RESP 20; TEMP 36.8; O2SAT 97; BMI 42.0
--- NOTE | 2021-01-12 22:20 | HP.PCM_ITS ---
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 01/04/2021 The patient is a 80 year old Male with below past medical history admitted to TCU for osteomyelitis right index finger requiring care home IV antibiotics, chronic left heel ulcer requiring wound VAC, wound care. 01/09/2021 Transferred to [facility] for elective outpatient left lower extremity angiogram. Angiogram revealed patent vessels including excellent 2 below the knee vessels and pedal arch. Given no evidence of severe peripheral arterial occlusive disease, no intervention performed. Post Angiogram course complicated by shortness of breath, hypotension, requiring initiation of epinephrine drip. Given unstable hemodynamics, admitted to [facility] CICU for monitoring. Normal Saline 1 liter IV bolus. Vancomycin, Zosyn IV for sepsis, then transitioned to Vancomycin, Cefepime. Epinephrine, Phenylephrine IV drip. 01/10/2021 Weaned off Epinephrine, Phenylephrine drips. 01/12/2021 Admit to TCU with debility, here for rehabilitation, strengthening, intravenous antibiotics, wound care, prior to discharge home alone. 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) Other specified peripheral vascular diseases (Chronic) Edema, lower extremity (Chronic) Allergies aspirin [ASA] Allergy (Verified 01/04/21 20:25) Rash doxycycline Allergy (Verified 01/04/21 20:25) Rash levofloxacin [From Levaquin] Allergy (Verified 01/04/21 20:25) Diarrhea Penicillins Allergy (Verified 01/04/21 20:25) Rash Sulfa (Sulfonamide Antibiotics) Allergy (Verified 01/04/21 20:25) Rash Home Medications: Ambulatory Orders Medication Instructions Recorded Allopurinol 300 mg PO DAILY 01/04/21 Amlodipine [Norvasc] 5 mg PO DAILY 01/04/21 Cyanocobalamin (Vitamin B-12) 1,000 mcg PO DAILY 01/04/21 [B-12] Docusate Sodium 100 mg PO BID 01/04/21 Fluoride (Sodium) [Prevident] 1 applicatio TOPICAL BID 01/04/21 Folic Acid 1 mg PO DAILY 01/04/21 Insulin Human 70/30 [Novolog Mix 75 units SC BIDCM 01/04/21 70-30 Flexpen Syrn] Magnesium Oxide 400 mg PO BID 01/04/21 Multivitamin with Minerals 1 ea PO DAILY 01/04/21 [Multiple Vitamin] Multivitamin/Iron/Folic Acid 1 tab PO DAILY 01/04/21 [Centrum Adults Tablet] Pregabalin [Lyrica] 100 mg PO BID 01/04/21 Simvastatin 20 mg PO QHS 01/04/21 Tamsulosin HCl 0.4 mg PO DAILY 01/04/21 Vancomycin IV [Vancomycin] 1 gm IV Q24H 01/04/21 Acetaminophen Extra Strength 500 mg PO Q6H PRN PRN 01/12/21 Insulin Glargine 35 units SQ QHS 01/12/21 Insulin Lispro Kwikpen U-100 10 units SQ TIDCM 01/12/21 Iron Polysaccharide Complex 150 mg PO DAILY 01/12/21 Ivig 50 g IV UD 01/12/21 Rasta - ORANGE FLAVOR 1 packet PO DAILY 01/12/21 Lactobacillus Acidophilus 1 tab PO DAILY 01/12/21 Mupirocin 1 applicatio TOPICAL TID 01/12/21 Oxycodone 5 mg PO Q6H PRN PRN 01/12/21 Tadalafil 10 mg PO DAILY PRN PRN 01/12/21 Surgical History: noncontributory Psychiatric History: No pertinent psych hx Lives: Alone Smoking Status: Former smoker Tobacco Use: Cigarettes, Cigars Alcohol: None Drugs: None - *Family History Maternal History Items: No pertinent history Paternal History Items: No pertinent history Review of Systems Constitutional: Denies: Chills, Fever, Weight Change HEENT: Denies: Head Aches, Sinus Congestion, Sinus Drainage Cardiovascular: Denies: Chest Pain, Palpitations Respiratory: Denies: Cough, Shortness of breath at rest, Sputum production Gastrointestinal: Denies: Abdominal Pain, Nausea, Vomiting Genitourinary: Denies: Dysuria Musculoskeletal: Denies: Joint Pain, Joint Tenderness Skin: Denies: Rash, Wounds Neurological: Denies: Numbness, Tingling, Focal weakness Psychiatric: Denies: Anxiety, Depression, Homicidal Ideations, Suicidal Ideations Hematologic/ Lymphatic: Denies: Easy Bruising, Easy Bleeding VTE Information - Inpt Only VTE Present on Admission: No VTE Mechan Device Prophylaxis: Knee High JAZMINE Hose VTE Pharm Prophylaxis ordered?: Yes Patient Problems: Active and Suspected Problems Debility (Acute) Septic shock (Acute) - Physical Exam Vitals/I&O's: Body Mass Index (BMI) 42.3 General: Alert, Oriented x3, Cooperative HEENT: Atraumatic, PERRLA, EOMI, Normocephalic Neck: Supple, No JVD, Negative Carotid Bruits Lungs: Clear to auscultation, Normal air movement Cardiovascular: Regular rate, No murmurs Abdomen: Bowel Sounds Present, Soft, Non Tender Extremities: No edema, Capillary Refill Less than 3 Seconds, - - LUE PICC line. Skin: No rashes, No breakdown, Ulcer/ Wound - Left heel ulcer per wound nurse. Musculoskeletal: No Tenderness to Palpation of Joints or Extremities Neurological: Cranial nerves II-XII grossly intact Psych/Mental Status: Normal Affect, Appropriate Current Medications Polyethylene Glycol (Polyethylene Glycol 3350 17 Gm Packet) 17 gm PO DAILY DAISY Senna/Docusate Sodium (Senna/Docusate Sodium 1 Tablet) 2 tablet PO BID DAISY Tuberculin PPD (Tuberculin,Purif.Prot.Deriv. 50 Tu/Ml Vial) 5 tu ID X1 ONE Stop: 01/13/21 10:01 Tuberculin PPD (Tuberculin,Purif.Prot.Deriv. 50 Tu/Ml Vial) 5 tu ID X1 ONE Stop: 01/20/21 10:01 Assessment/Plan All Active Problems Debility (Acute) Septic shock (Acute) 80 year old male with below past medical history significant for osteomyelitis right index finger, chronic left heel ulcer, hospitalized for septic shock, admitted to TCU with debility, here for rehabilitation, strengthening, intravenous antibiotics, wound care, prior to discharge home alone. * Debility - PT/OT. * Pain - Tylenol 1000MG Q6H PRN pain (1-3), Oxycodone 5MG Q4H PRN pain (4-10). * Bowel - Miralax 17GM daily, Senna/colace 1 tablet BID, MOM 30ML daily PRN PRN, Dulcolax 10MG NV daily PRN. * Adult immunization - Administer Prevnar 13, Pneumovax 23, Fluzone, COVID19 vaccine as appropriate. * DVT prophylaxis - Hold, Anemia. * Gout - Allopurinol 300MG daily. * Hypertension - Amlodipine 5MG daily. * Vitamin B12 deficiency - B12 1000MCG daily. * Folate deficiency - Folic Acid 1MG daily. * Diabetes Mellitus II - Lantus 35 units QHS, Humalog 10 units TIDAC. * Hypomagnesemia - Magnesium 400MG BID. * Nutrition - MVI daily. * Diabetic polyneuropathy - Lyrica 100MG BID. * Hyperlipidemia - Atorvastatin 20MG QHS. * BPH - Tamsulosin 0.4MG daily. * Osteomyelitis right index finger - Vancomycin 1GM IV Q24H, consult Dr. Carlson. * Left heel ulcer - Wound VAC, consult Dr. Woodard, consult wound/ostomy nurse.
[2021-01-13 00:31] LABS: Bedside Glucose 101 mg/dL (70-110)
[2021-01-13 01:03] VITALS: BMI 42.0
[2021-01-13 05:30] VITALS: BP 117/54; PULSE 61; RESP 18; TEMP 36.4; O2SAT 95
[2021-01-13] MEDS: Cyanocobalamin 500 MCG Tablet 1000 MCG PO (05:32)
[2021-01-13] MEDS: Pregabalin 50 MG Capsule 100 MG PO ×2 (05:32→18:00)
[2021-01-13] MEDS: amLODIPine 5 MG Tablet PO (05:32)
[2021-01-13] MEDS: 0.9% Saline Lock 10 ML Syringe IV ×2 (05:36→11:40)
[2021-01-13] MEDS: Nystatin Powder 15gm Bottle 1 APPLIC TOPICAL ×2 (05:44→17:57)
[2021-01-13] MEDS: Magnesium Chloride 64 MG Delay Rel.Tablet 128 MG PO ×2 (06:11→17:56)
[2021-01-13 06:20] LABS: Bedside Glucose 100 mg/dL (70-110)
[2021-01-13 08:15] LABS: Absolute Lymphocyte Count 1.14 X10^3/uL (0.83-4.51); Absolute Neutrophil Count 3.2 X10^3/uL (2.0-7.7); Basophil# 0.03 X10^3/uL; Basophil% 0.5 % (0-1); Eosinophil# 0.34 X10^3/uL; Eosinophils% 6.1 % (0-5); Hematocrit 28.8 % (40-54); Lymphocyte # 1.14 X10^3/ul (4.0); Lymphocyte % 20.3 % (19-41); Mean Corp Hgb Conc 31.3 g/dL (32-36); Mean Corpuscular Hgb 28.4 pg (27.0-32.0); Mean Corpuscular Volume 90.9 fL (80-94); Mean Platelet Vol. 10.8 fl (6.2-12.0); Monocyte# 0.92 X10^3/uL; Monocyte% 16.4 % (0-10); NRBC Flagged by Analyzer 0 % (0-5); Neutrophil # 3.16 X10^3/uL (2.7-7.7); Neutrophil % 56.3 % (47-70); Platelet Count 163 K/mm3 (150-450); RBC Distribution Width SD 49.8 fl (35.1-43.9); Red Blood Count 3.17 M/mm3 (4.6-6.2); White Blood Count 5.6 K/mm3 (4.4-11.0)
[2021-01-13] MEDS: Juven (unflavored) Packet 1 PACKET PO (08:26)
[2021-01-13] MEDS: Folic Acid 1 MG Tablet PO (08:27)
[2021-01-13] MEDS: Iron Polysaccharide Complex 150 MG CAPSULE PO (08:27)
[2021-01-13] MEDS: Multivitamins,Ther W-Minerals Tablet 1 TABLET PO (08:27)
[2021-01-13] MEDS: Allopurinol 300 MG Tablet PO (08:27)
[2021-01-13] MEDS: Insulin Lispro 100 UNIT/ML INSULN.PEN 10 UNIT SC ×3 (08:29→17:57)
[2021-01-13 08:47] LABS: Anion Gap 3 (5-15); BUN 46 mg/dL (7-18); BUN/Creat Ratio 24.9 RATIO (10-20); Calcium,Total 9.3 mg/dL (8.5-10.1); Chloride 113 mmol/L (98-107); Creatinine, Serum 1.85 mg/dL (0.70-1.30); EST Glomerular Filtration Rate 38 mL/min (>60); Est Glom Filt Rate - Afr Amer 46 mL/min (>60); Estimated Creatinine Clearance 35.05 ml/min; Glucose 94 mg/dL (74-106); Sodium Level 140 mmol/L (136-145)
[2021-01-13 11:21] LABS: Bedside Glucose 104 mg/dL (70-110)
[2021-01-13] MEDS: Vancomycin IV 1,000 MG/200 ML BAG 200 MG IV (11:40)
[2021-01-13] MEDS: Tuberculin,Purif.prot.deriv. 50 TU/ML Vial 5 ML ID (11:41)
--- NOTE | 2021-01-13 12:13 | PHA.PHARE_ITS ---
Consult Pharmacy has been consulted to manage selected antiobiotic: Vancomycin Type of Consult: New start Suspected Infection: Osteomyelitis Labs: Sodium 140 mmol/L (136-145) 01/13/21 07:47 Potassium 5.0 mmol/L (3.5-5.1) 01/13/21 07:47 Chloride 113 mmol/L (98-107) H 01/13/21 07:47 Carbon Dioxide 24.0 mmol/L (21.0-32.0) 01/13/21 07:47 Anion Gap 3 (5-15) L 01/13/21 07:47 BUN 46 mg/dL (7-18) H 01/13/21 07:47 Creatinine 1.85 mg/dL (0.70-1.30) H 01/13/21 07:47 Est GFR (MDRD) Af Amer 46 mL/min (>60) L 01/13/21 07:47 Est GFR (MDRD) Non-Af 38 mL/min (>60) L 01/13/21 07:47 BUN/Creatinine Ratio 24.9 RATIO (10-20) H 01/13/21 07:47 Glucose 94 mg/dL (74-106) 01/13/21 07:47 Random Vancomycin 20.0 ug/mL (0.0-15.0) H 01/13/21 07:47 Weight used for dosin.7 kg Estimated Creatinine Clearance: 46.5ML/MIN Goal Trough: 15-20 mcg/mL Pharmacy Plan for Drug Dosing: The patient returned to [facility] after transferring to another facility for a few days. Because it was unclear what dose he was on at the other facility (1500mg vs 1000mg q24h) and when the last trough was, a random level was taken here this morning. That came back as 20 (drawn at 07:47 this AM). Since that was within goal range, the patient was restarted on vancomycin at a dose of 1000mg q24h at about 12pm today which was the dose the patient had been on here just a few days ago before going to the other facility. Will recheck the trough again before the 3rd dose. The patient's CrCl of 46.5 was calculated using an adjusted body weight of 99.9kg. Pharmacy Service will continue to monitor and adjust dosing as required. Follow-Up Labs: Trough Vancomycin Labs to be done on [date and time ordered]: 01/15/21 11:30
[2021-01-13] MEDS: Povidone-Iodine Swabstick 1 PACKET TOPICAL (14:15)
[2021-01-13 14:22] VITALS: BP 143/69; PULSE 60; RESP 17; TEMP 36.6; O2SAT 97
[2021-01-13 16:56] LABS: Bedside Glucose 151 mg/dL (70-110)
[2021-01-13] MEDS: Tamsulosin HCl 0.4 MG Capsule PO (17:55)
[2021-01-13 21:15] LABS: Bedside Glucose 205 mg/dL (70-110)
[2021-01-13] MEDS: Atorvastatin Calcium 10 MG Tablet PO (21:33)
[2021-01-14 05:12] VITALS: BP 123/69; PULSE 69; RESP 17; TEMP 37.2; O2SAT 97
[2021-01-14] MEDS: Cyanocobalamin 500 MCG Tablet 1000 MCG PO ×2 (05:14→05:15)
[2021-01-14] MEDS: amLODIPine 5 MG Tablet PO (05:15)
[2021-01-14] MEDS: Nystatin Powder 15gm Bottle 1 APPLIC TOPICAL ×2 (05:16→17:35)
[2021-01-14] MEDS: Magnesium Chloride 64 MG Delay Rel.Tablet 128 MG PO ×2 (05:16→17:35)
[2021-01-14] MEDS: Pregabalin 50 MG Capsule 100 MG PO ×2 (05:16→17:34)
[2021-01-14 06:16] LABS: Bedside Glucose 99 mg/dL (70-110)
[2021-01-14] MEDS: Folic Acid 1 MG Tablet PO (08:25)
[2021-01-14] MEDS: Iron Polysaccharide Complex 150 MG CAPSULE PO (08:25)
[2021-01-14] MEDS: Juven (unflavored) Packet 1 PACKET PO (08:26)
[2021-01-14] MEDS: Insulin Lispro 100 UNIT/ML INSULN.PEN 10 UNIT SC ×3 (08:26→17:36)
[2021-01-14] MEDS: Multivitamins,Ther W-Minerals Tablet 1 TABLET PO (08:26)
[2021-01-14] MEDS: Allopurinol 300 MG Tablet PO (08:30)
[2021-01-14 11:16] LABS: Bedside Glucose 168 mg/dL (70-110)
[2021-01-14] MEDS: Vancomycin IV 1,000 MG/200 ML BAG 200 MG IV (11:49)
[2021-01-14] MEDS: 0.9% Saline Lock 10 ML Syringe IV (11:50)
[2021-01-14 15:05] VITALS: BP 143/63; PULSE 65; RESP 14; TEMP 36.6; O2SAT 93
[2021-01-14 16:51] LABS: Bedside Glucose 181 mg/dL (70-110)
[2021-01-14] MEDS: Tamsulosin HCl 0.4 MG Capsule PO (17:35)
[2021-01-14] MEDS: Povidone-Iodine Swabstick 1 PACKET TOPICAL (20:57)
[2021-01-14] MEDS: Atorvastatin Calcium 10 MG Tablet PO (20:59)
[2021-01-14 21:21] LABS: Bedside Glucose 256 mg/dL (70-110)
[2021-01-15 05:53] VITALS: BP 126/61; PULSE 55; RESP 16; TEMP 37; O2SAT 97
[2021-01-15] MEDS: Magnesium Chloride 64 MG Delay Rel.Tablet 128 MG PO ×2 (05:55→17:12)
[2021-01-15] MEDS: Senna/Docusate Sodium 1 Tablet PO (05:55)
[2021-01-15] MEDS: amLODIPine 5 MG Tablet PO (05:56)
[2021-01-15] MEDS: Pregabalin 50 MG Capsule 100 MG PO ×2 (05:56→17:15)
[2021-01-15] MEDS: Nystatin Powder 15gm Bottle 1 APPLIC TOPICAL ×2 (05:58→17:13)
[2021-01-15 06:26] LABS: Bedside Glucose 143 mg/dL (70-110)
[2021-01-15] MEDS: Insulin Lispro 100 UNIT/ML INSULN.PEN 10 UNIT SC ×3 (08:14→17:12)
[2021-01-15] MEDS: Allopurinol 300 MG Tablet PO (08:15)
[2021-01-15] MEDS: Multivitamins,Ther W-Minerals Tablet 1 TABLET PO (08:15)
[2021-01-15] MEDS: Folic Acid 1 MG Tablet PO (08:16)
[2021-01-15] MEDS: Iron Polysaccharide Complex 150 MG CAPSULE PO (08:16)
[2021-01-15] MEDS: Juven (unflavored) Packet 1 PACKET PO (08:21)
[2021-01-15 11:01] LABS: Bedside Glucose 155 mg/dL (70-110)
--- NOTE | 2021-01-15 11:22 | PHA.CONS_ITS ---
Progress Note - Pharmacy Subjective: TCU Admission Objective: Allergies aspirin [ASA] Allergy (Verified 01/04/21 20:25) Rash doxycycline Allergy (Verified 01/04/21 20:25) Rash levofloxacin [From Levaquin] Allergy (Verified 01/04/21 20:25) Diarrhea Penicillins Allergy (Verified 01/04/21 20:25) Rash Sulfa (Sulfonamide Antibiotics) Allergy (Verified 01/04/21 20:25) Rash Current Medications Generic Name Dose Route Start Last Admin Trade Name Freq PRN Reason Stop Dose Admin Acetaminophen 1,000 mg 01/12/21 23:41 Acetaminophen 500 Mg Tablet PO Q6H PRN PRN Pain Score 1-3 Allopurinol 300 mg 01/13/21 08:00 01/15/21 08:15 Allopurinol 300 Mg Tablet PO 300 mg DAILY@0800 DAISY Administration Amlodipine Besylate 5 mg 01/13/21 06:00 01/15/21 05:56 Amlodipine 5 Mg Tablet PO 5 mg DAILY DAISY Administration Atorvastatin Calcium 10 mg 01/13/21 22:00 01/14/21 20:59 Atorvastatin Calcium 10 Mg Tablet PO 10 mg QHS DAISY Administration Bisacodyl 10 mg 01/12/21 23:44 Bisacodyl 10 Mg Suppository RC DAILY PRN Constipation Cyanocobalamin 1,000 mcg 01/13/21 06:00 01/14/21 05:15 Cyanocobalamin 500 Mcg Tablet PO 1,000 mcg DAILY DAISY Administration Folic Acid 1 mg 01/13/21 08:00 01/15/21 08:16 Folic Acid 1 Mg Tablet PO 1 mg DAILY@0800 DAISY Administration Heparin Sodium (Beef Lung) 50 units 01/13/21 01:02 Heparin Pf Lock 10 Units/Ml 50 Units/5 Ml Syringe IV UD PRN PICC Line Heparin Flush Vancomycin IV Pharmacy to Dose 500 mls @ 250 mls/hr 01/13/21 07:35 1 ea/ Sodium Chloride IV X1 PRN Rx to Dose Protocol Vancomycin HCl 1,000 mg in 200 mls @ 200 mls/hr 01/13/21 11:00 01/14/21 12:49 Vancomycin IV Infused Q24H DAISY Infusion Sodium Chloride 250 mls @ 15 mls/hr 01/13/21 10:45 01/14/21 13:10 IV 0 mls/hr .[id number] PRN Infusion Saline Flush Sodium Chloride 250 mls @ 15 mls/hr 01/13/21 10:45 IV .[id number] PRN Additional IVPB Infusion Insulin Glargine 35 units 01/13/21 22:00 01/14/21 21:30 Insulin Glargine 100 Units/Ml Pen SC 35 u QHS DAISY Administration Insulin Human Lispro 10 unit 01/13/21 07:45 01/15/21 08:14 Insulin Lispro 100 Unit/Ml Insuln.Pen SC 10 units TIDCM DAISY Administration L-Arginine/L-Glutamine/Calcium HMB 1 packet 01/13/21 08:00 01/15/21 08:21 Rasta (Unflavored) Packet PO 1 packet DAILYCM DAISY Administration Lactobacillus Acidophilus 1 tablet 01/13/21 06:00 01/15/21 05:56 Lactobacillus Acidophilus PO 1 tablet DAILY DAISY Administration Magnesium Chloride 128 mg 01/13/21 06:00 01/15/21 05:55 Magnesium Chloride 64 Mg Delay Rel.Tablet PO 128 mg BID DAISY Administration Magnesium Hydroxide 30 ml 01/12/21 23:44 Magnesium Hydroxide 30 Ml Udc PO DAILY PRN Constipation Multivitamins/Minerals 1 tablet 01/13/21 08:00 01/15/21 08:15 Multivitamins,Ther W-Minerals Tablet PO 1 tablet DAILY@0800 [facility] Administration Nystatin 1 applic 01/13/21 06:00 01/15/21 05:58 Nystatin Powder 15gm Bottle TOPICAL 1 applicatio BID DAISY Administration Protocol Oxycodone HCl 5 mg 01/12/21 23:50 Oxycodone 5 Mg Tablet PO Q4H PRN PRN Pain Score 4-10 Polyethylene Glycol 17 gm 01/13/21 06:00 01/15/21 05:57 Polyethylene Glycol 3350 17 Gm Packet PO Not Given DAILY DAISY Polysaccharide Iron Complex 150 mg 01/13/21 08:00 01/15/21 08:16 Iron Polysaccharide Complex 150 Mg Capsule PO 150 mg DAILYCM [facility] Administration Povidone Iodine 1 packet 01/13/21 13:11 01/14/21 20:57 Povidone-Iodine Swabstick TOPICAL 1 packet DAILY DAISY Administration Protocol Pregabalin 100 mg 01/13/21 06:00 01/15/21 05:56 Pregabalin 50 Mg Capsule PO 100 mg BID DAISY Administration Senna/Docusate Sodium 1 tablet 01/13/21 06:00 01/15/21 05:55 Senna/Docusate Sodium 1 Tablet PO 1 tablet BID DAISY Administration Sodium Chloride 10 - 40 ml 01/13/21 01:02 01/14/21 11:50 0.9% Saline Lock 10 Ml Syringe IV 40 ml UD PRN Administration Open End PICC Flush Sodium Chloride 10 - 40 ml 01/13/21 01:02 0.9 % Nacl (Sterile) Posiflush 10 Ml IV UD PRN Port access or dressing change Tamsulosin HCl 0.4 mg 01/13/21 17:30 01/14/21 17:35 Tamsulosin Hcl 0.4 Mg Capsule PO 0.4 mg DAILY@1730 DAISY Administration Tuberculin PPD 5 tu 01/20/21 10:00 Tuberculin,Purif.Prot.Deriv. 50 Tu/Ml Vial ID 01/20/21 10:01 X1 ONE Problem List Debility (Acute) 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) Ulcer of left heel (Chronic) Gout (Chronic) Hypertension (Chronic) Vitamin B12 deficiency (Chronic) Folate deficiency (Chronic) Diabetes mellitus (Chronic) Hypomagnesemia (Chronic) Diabetic polyneuropathy (Chronic) Hyperlipidemia (Chronic) Benign prostatic hyperplasia (Chronic) Chronic kidney disease (Chronic) Chronic inflammatory demyelinating polyneuritis (Chronic) Septic shock (Acute) Vital Signs Temp Pulse Resp BP Pulse Ox 98.6 F 55 L 16 126/61 H 97 01/15/21 05:53 01/15/21 05:53 01/15/21 05:53 01/15/21 05:53 01/15/21 05:53 Oxygen Delivery Method Room Air Weight: 136.7 kg Body Mass Index (BMI) 42.0 Sodium 140 mmol/L (136-145) 01/13/21 07:47 Potassium 5.0 mmol/L (3.5-5.1) 01/13/21 07:47 Chloride 113 mmol/L (98-107) H 01/13/21 07:47 Carbon Dioxide 24.0 mmol/L (21.0-32.0) 01/13/21 07:47 Anion Gap 3 (5-15) L 01/13/21 07:47 BUN 46 mg/dL (7-18) H 01/13/21 07:47 Creatinine 1.85 mg/dL (0.70-1.30) H 01/13/21 07:47 Est GFR (MDRD) Af Amer 46 mL/min (>60) L 01/13/21 07:47 Est GFR (MDRD) Non-Af 38 mL/min (>60) L 01/13/21 07:47 BUN/Creatinine Ratio 24.9 RATIO (10-20) H 01/13/21 07:47 Glucose 94 mg/dL (74-106) 01/13/21 07:47 Random Vancomycin 20.0 ug/mL (0.0-15.0) H 01/13/21 07:47 Assessment/Plan: 1. Pain: acetaminophen 1000mg PO Q6H PRN pain 1-310 and oxycodone 5mg PO Q4H PRN pain 4-10. Please continue to monitor for increased pain and PRN usage. *2. Osteomyelitis (right index finger): vancomycin 1gm IV Q24H. Please consider adding a stop date after seen by ID. Thanks. Pharmacy will continue to monitor renal function and troughs. 3. Hypertension: amlodipine 5mg PO daily. Please continue to monitor BP (last 126/61) and for swelling. *4. Diabetes mellitus II: insulin glargine 35units SC QHS and insulin lispro 10units SC TIDAC. Patient does not have a hemoglobin A1c on file. Please consider ordering a hemoglobin A1c. Please continue to monitor blood glucose (last 155mg/dL) and for S/S of hypoglycemia. 5. Gout: allopurinol 300mg PO daily. Please continue to monitor for S/S of gout and renal function. 6. Diabetic polyneuropathy: pregabalin 100mg PO BID. Please continue to monitor for renal function. 7. BPH: tamsulosin 0.4mg PO daily. Please continue to monitor urine flow and hypotension. *8. Hyperlipidemia: atorvastatin 10mg PO QHS. Please consider ordering a lipid panel. Patient does not have one on file. Thanks. Please continue to monitor for muscle pain. *9. Vitamin/electrolyte deficiencies and overall nutrition: cyanocobalamin 1000mcg PO daily, folic acid 1mg PO DAILYCM, magnesium chloride 128mg PO BID, lactobacillus 1T PO daily, and multivitamin with minerals 1T PO daily. Please continue to monitor magnesium (last 01/08/21). Please consider ordering a vitamin B12 level. Patient does not have one in chart. Thanks. 10. Iron deficiency: Ferrex 150mg PO DAILYCM. Please continue to monitor for dark stools and hemoglobin (last 9 g/dL). Psychotropic Medications: None Unnecessary Medications: None *Bowel Regimen: Miralax 17gm PO daily, senna/docusate 1T PO BID, MOM 30mL PO daily PRN constipation, and bisacodyl 10mg RC daily PRN constipation. Patient has refused 3/3 doses of Miralax and 4/5 doses of senna/docusate. Please consider changing from scheduled to PRN constipation. Thanks. Please continue to monitor for constipation and PRN usage. Date of Note:: 01/15/21 - Provider Comments Provider responsibility: Provider responsible to enter orders to implement recommendations
[2021-01-15 11:59] LABS: Vancomycin, Trough Level 20.8 ug/mL (5.0-15.0)
[2021-01-15] MEDS: Povidone-Iodine Swabstick 1 PACKET TOPICAL (12:22)
--- NOTE | 2021-01-15 14:19 | PCM.PN.ID ---
Patient Problems: Active and Suspected Problems Debility (Acute) Septic shock (Acute) Subjective: Feeling ok, finger better ROM, no fever - Physical Exam Vitals/I&O's: Vital Signs Temp Pulse Resp BP Pulse Ox 98.6 F 55 L 16 126/61 H 97 01/15/21 05:53 01/15/21 05:53 01/15/21 05:53 01/15/21 05:53 01/15/21 05:53 Oxygen Delivery Method Room Air Weight: 136.7 kg Body Mass Index (BMI) 42.0 Intake and Output for Last 24 Hours 01/13/21 01/14/21 01/15/21 23:59 23:59 23:59 Intake Total 1061.25 / 1061.25 1165.25 / 1165.25 360 / 360 Balance 1061.25 / 1061.25 1165.25 / 1165.25 360 / 360 General: Alert, Cooperative, No apparent distress Lungs: Clear to auscultation, Normal air movement Cardiovascular: Regular rate, Regular Rhythm Abdomen: Soft, Non Tender, Non-Distended Skin: Ulcer/ Wound - R index finger less red, still swollen Laboratory Results 01/14/21 16:40: POC Glucose 181 H 01/14/21 21:18: POC Glucose 256 H 01/15/21 06:03: POC Glucose 143 H 01/15/21 10:57: POC Glucose 155 H 01/15/21 11:20: Vancomycin Trough 20.8 H Current Medications Acetaminophen (Acetaminophen 500 Mg Tablet) 1,000 mg PO Q6H PRN PRN PRN Reason: Pain Score 1-3 Allopurinol (Allopurinol 300 Mg Tablet) 300 mg PO DAILY@0800 [facility] Last Admin: 01/15/21 08:15 Dose: 300 mg Documented by: Amlodipine Besylate (Amlodipine 5 Mg Tablet) 5 mg PO DAILY [facility] Last Admin: 01/15/21 05:56 Dose: 5 mg Documented by: Atorvastatin Calcium (Atorvastatin Calcium 10 Mg Tablet) 10 mg PO QHS [facility] Last Admin: 01/14/21 20:59 Dose: 10 mg Documented by: Bisacodyl (Bisacodyl 10 Mg Suppository) 10 mg RC DAILY PRN PRN Reason: Constipation Cyanocobalamin (Cyanocobalamin 500 Mcg Tablet) 1,000 mcg PO DAILY [facility] Last Admin: 01/14/21 05:15 Dose: 1,000 mcg Documented by: Folic Acid (Folic Acid 1 Mg Tablet) 1 mg PO DAILY@0800 [facility] Last Admin: 01/15/21 08:16 Dose: 1 mg Documented by: Heparin Sodium (Beef Lung) (Heparin Pf Lock 10 Units/Ml 50 Units/5 Ml Syringe) 50 units IV UD PRN PRN Reason: PICC Line Heparin Flush Vancomycin IV Pharmacy to Dose (1 ea/ Sodium Chloride) 500 mls @ 250 mls/hr IV X1 PRN; Protocol PRN Reason: Rx to Dose Sodium Chloride () 250 mls @ 15 mls/hr IV .[id number] PRN PRN Reason: Saline Flush Last Infusion: 01/14/21 13:10 Dose: 0 mls/hr Documented by: Sodium Chloride () 250 mls @ 15 mls/hr IV .[id number] PRN PRN Reason: Additional IVPB Infusion Vancomycin HCl 750 mg/ Sodium (Chloride) 265 mls @ 250 mls/hr IV Q24H [facility] Insulin Glargine (Insulin Glargine 100 Units/Ml Pen) 35 units SC QHS [facility] Last Admin: 01/14/21 21:30 Dose: 35 u Documented by: Insulin Human Lispro (Insulin Lispro 100 Unit/Ml Insuln.Pen) 10 unit SC TIDCM [facility] Last Admin: 01/15/21 12:22 Dose: 10 units Documented by: L-Arginine/L-Glutamine/Calcium HMB (Rasta (Unflavored) Packet) 1 packet PO DAILYCM [facility] Last Admin: 01/15/21 08:21 Dose: 1 packet Documented by: Lactobacillus Acidophilus (Lactobacillus Acidophilus) 1 tablet PO DAILY [facility] Last Admin: 01/15/21 05:56 Dose: 1 tablet Documented by: Magnesium Chloride (Magnesium Chloride 64 Mg Delay Rel.Tablet) 128 mg PO BID [facility] Last Admin: 01/15/21 05:55 Dose: 128 mg Documented by: Magnesium Hydroxide (Magnesium Hydroxide 30 Ml Udc) 30 ml PO DAILY PRN PRN Reason: Constipation Multivitamins/Minerals (Multivitamins,Ther W-Minerals Tablet) 1 tablet PO DAILY@0800 [facility] Last Admin: 01/15/21 08:15 Dose: 1 tablet Documented by: Nystatin (Nystatin Powder 15gm Bottle) 1 applic TOPICAL BID [facility]; Protocol Last Admin: 01/15/21 05:58 Dose: 1 applicatio Documented by: Oxycodone HCl (Oxycodone 5 Mg Tablet) 5 mg PO Q4H PRN PRN PRN Reason: Pain Score 4-10 Polyethylene Glycol (Polyethylene Glycol 3350 17 Gm Packet) 17 gm PO DAILY [facility] Last Admin: 01/15/21 05:57 Dose: Not Given Documented by: Polysaccharide Iron Complex (Iron Polysaccharide Complex 150 Mg Capsule) 150 mg PO DAILYCM [facility] Last Admin: 01/15/21 08:16 Dose: 150 mg Documented by: Povidone Iodine (Povidone-Iodine Swabstick) 1 packet TOPICAL DAILY [facility]; Protocol Pregabalin (Pregabalin 50 Mg Capsule) 100 mg PO BID [facility] Last Admin: 01/15/21 05:56 Dose: 100 mg Documented by: Senna/Docusate Sodium (Senna/Docusate Sodium 1 Tablet) 1 tablet PO BID [facility] Last Admin: 01/15/21 05:55 Dose: 1 tablet Documented by: Sodium Chloride (0.9% Saline Lock 10 Ml Syringe) 10 - 40 ml IV UD PRN PRN Reason: Open End PICC Flush Last Admin: 01/14/21 11:50 Dose: 40 ml Documented by: Sodium Chloride (0.9 % Nacl (Sterile) Posiflush 10 Ml) 10 - 40 ml IV UD PRN PRN Reason: Port access or dressing change Tamsulosin HCl (Tamsulosin Hcl 0.4 Mg Capsule) 0.4 mg PO DAILY@1730 [facility] Last Admin: 01/14/21 17:35 Dose: 0.4 mg Documented by: Tuberculin PPD (Tuberculin,Purif.Prot.Deriv. 50 Tu/Ml Vial) 5 tu ID X1 ONE Stop: 01/20/21 10:01 Medical Necessity - Tobacco Use Smoking Status: Former smoker Tobacco Use: Cigarettes, Cigars Route of nutrition/ use of supplements: [] Nutritional Intake: [] IV Site: [] Luu Catheter: [] - Assessment/Plan Antibiotics: [] Assessment/Plan: [] Active and Suspected Problems Debility (Acute) Septic shock (Acute) R index finger osteo - Reviewed records from . Cont vanc, plan on 4-6 week total course, may need longer course of po abx after that. Start date is 01/04 transfer here. Will follow
[2021-01-15 14:43] VITALS: BP 128/57; PULSE 64; RESP 14; TEMP 36.6; O2SAT 96
[2021-01-15] MEDS: 0.9% Saline Lock 10 ML Syringe IV (15:29)
--- NOTE | 2021-01-15 16:49 | PCM.CONS.GEN ---
Reason for Consult Date of Consultation: 01/15/21 Reason for Consultation: Left heel ulcer History of Present Illness: The patient is a 80 year old gentleman known to podiatry service was seen today for follow up on left heel ulceration. Patient was at for left lower extremity vascular procedure last week, now back in TCU. He relates they were not able to do anything to improve circulation to left foot - relates there was only a 10% blockage. Patient does not have wound vac in place anymore, it has been discontinued. Patient denies any pain to the ulcer, he has diabetes and he relates numbness below both knees. He relates he does the best he can to stay off of the heel, he knows any weight on the heel will delay the healing. He is on IV antibiotics for finger osteomyelitis. He has no complaints today otherwise. 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) Other specified peripheral vascular diseases (Chronic) Edema, lower extremity (Chronic) Allergies aspirin [ASA] Allergy (Verified 01/04/21 20:25) Rash doxycycline Allergy (Verified 01/04/21 20:25) Rash levofloxacin [From Levaquin] Allergy (Verified 01/04/21 20:25) Diarrhea Penicillins Allergy (Verified 01/04/21 20:25) Rash Sulfa (Sulfonamide Antibiotics) Allergy (Verified 01/04/21 20:25) Rash Home Medications: Ambulatory Orders Medication Instructions Recorded Allopurinol 300 mg PO DAILY 01/04/21 Amlodipine [Norvasc] 5 mg PO DAILY 01/04/21 Cyanocobalamin (Vitamin B-12) 1,000 mcg PO DAILY 01/04/21 [B-12] Docusate Sodium 100 mg PO BID 01/04/21 Fluoride (Sodium) [Prevident] 1 applicatio TOPICAL BID 01/04/21 Folic Acid 1 mg PO DAILY 01/04/21 Insulin Human 70/30 [Novolog Mix 75 units SC BIDCM 01/04/21 70-30 Flexpen Syrn] Magnesium Oxide 400 mg PO BID 01/04/21 Multivitamin with Minerals 1 ea PO DAILY 01/04/21 [Multiple Vitamin] Multivitamin/Iron/Folic Acid 1 tab PO DAILY 01/04/21 [Centrum Adults Tablet] Pregabalin [Lyrica] 100 mg PO BID 01/04/21 Simvastatin 20 mg PO QHS 01/04/21 Tamsulosin HCl 0.4 mg PO DAILY 01/04/21 Vancomycin IV [Vancomycin] 1 gm IV Q24H 01/04/21 Acetaminophen Extra Strength 500 mg PO Q6H PRN PRN 01/12/21 Insulin Glargine 35 units SQ QHS 01/12/21 Insulin Lispro Kwikpen U-100 10 units SQ TIDCM 01/12/21 Iron Polysaccharide Complex 150 mg PO DAILY 01/12/21 Ivig 50 g IV UD 01/12/21 Rasta - ORANGE FLAVOR 1 packet PO DAILY 01/12/21 Lactobacillus Acidophilus 1 tab PO DAILY 01/12/21 Mupirocin 1 applicatio TOPICAL TID 01/12/21 Oxycodone 5 mg PO Q6H PRN PRN 01/12/21 Tadalafil 10 mg PO DAILY PRN PRN 01/12/21 Surgical History: noncontributory Psychiatric History: No pertinent psych hx Lives: Alone Smoking Status: Former smoker Tobacco Use: Cigarettes, Cigars Alcohol: None Drugs: None - *Family History Maternal History Items: No pertinent history Paternal History Items: No pertinent history Review of Systems Constitutional: Denies: Chills, Fever Gastrointestinal: Denies: Nausea, Vomiting Patient Problems: Active and Suspected Problems Debility (Acute) Septic shock (Acute) - Physical Exam Vitals/I&O's: Vital Signs Temp Pulse Resp BP Pulse Ox 97.8 F 64 14 128/57 H 96 01/15/21 14:43 01/15/21 14:43 01/15/21 14:43 01/15/21 14:43 01/15/21 14:43 Oxygen Delivery Method Room Air Weight: 136.7 kg Body Mass Index (BMI) 42.0 Intake and Output for Last 24 Hours 01/13/21 01/14/21 01/15/21 23:59 23:59 23:59 Intake Total 1061.25 / 1061.25 1165.25 / 1165.25 721.5 / 721.5 Balance 1061.25 / 1061.25 1165.25 / 1165.25 721.5 / 721.5 General: Alert, Oriented x3, Cooperative, No apparent distress Extremities: Capillary Refill Less than 3 Seconds, No Calf Tenderness, - - Left heel ulceration down to subcutaneous tissue, there is noted to be fibrotic/granular tissue mix, there is no maloder, no fluctuance, no cellulitis, no exposed or probing to bone, no acute ischemia to the foot or ankle bilateral. Skin: Ulcer/ Wound - there are some superficial blisters to the right anterior leg with roofs intact, no evidence of infection - patient relates he gets these often. Musculoskeletal: No Tenderness to Palpation of Joints or Extremities - to the foot or ankle bilateral., No Muscle Wasting Neurological: - - Left foot drop - he relates this is chronic. Decreased sensation to the foot bilateral c/w known neuropathy Psych/Mental Status: Normal Affect, Appropriate, Alert and oriented to time, place, person, mood and affect Laboratory Results 01/14/21 16:40: POC Glucose 181 H 01/14/21 21:18: POC Glucose 256 H 01/15/21 06:03: POC Glucose 143 H 01/15/21 10:57: POC Glucose 155 H 01/15/21 11:20: Vancomycin Trough 20.8 H Current Medications Acetaminophen (Acetaminophen 500 Mg Tablet) 1,000 mg PO Q6H PRN PRN PRN Reason: Pain Score 1-3 Allopurinol (Allopurinol 300 Mg Tablet) 300 mg PO DAILY@0800 [facility] Last Admin: 01/15/21 08:15 Dose: 300 mg Documented by: Amlodipine Besylate (Amlodipine 5 Mg Tablet) 5 mg PO DAILY [facility] Last Admin: 01/15/21 05:56 Dose: 5 mg Documented by: Atorvastatin Calcium (Atorvastatin Calcium 10 Mg Tablet) 10 mg PO QHS [facility] Last Admin: 01/14/21 20:59 Dose: 10 mg Documented by: Bisacodyl (Bisacodyl 10 Mg Suppository) 10 mg RC DAILY PRN PRN Reason: Constipation Cyanocobalamin (Cyanocobalamin 500 Mcg Tablet) 1,000 mcg PO DAILY [facility] Last Admin: 01/14/21 05:15 Dose: 1,000 mcg Documented by: Folic Acid (Folic Acid 1 Mg Tablet) 1 mg PO DAILY@0800 [facility] Last Admin: 01/15/21 08:16 Dose: 1 mg Documented by: Heparin Sodium (Beef Lung) (Heparin Pf Lock 10 Units/Ml 50 Units/5 Ml Syringe) 50 units IV UD PRN PRN Reason: PICC Line Heparin Flush Vancomycin IV Pharmacy to Dose (1 ea/ Sodium Chloride) 500 mls @ 250 mls/hr IV X1 PRN; Protocol PRN Reason: Rx to Dose Sodium Chloride () 250 mls @ 15 mls/hr IV .[id number] PRN PRN Reason: Saline Flush Last Infusion: 01/15/21 15:34 Dose: 0 mls/hr Documented by: Sodium Chloride () 250 mls @ 15 mls/hr IV .[id number] PRN PRN Reason: Additional IVPB Infusion Vancomycin HCl 750 mg/ Sodium (Chloride) 265 mls @ 250 mls/hr IV Q24H [facility] Last Admin: 01/15/21 15:28 Dose: 250 mls/hr Documented by: Insulin Glargine (Insulin Glargine 100 Units/Ml Pen) 35 units SC QHS [facility] Last Admin: 01/14/21 21:30 Dose: 35 u Documented by: Insulin Human Lispro (Insulin Lispro 100 Unit/Ml Insuln.Pen) 10 unit SC TIDCM [facility] Last Admin: 01/15/21 12:22 Dose: 10 units Documented by: L-Arginine/L-Glutamine/Calcium HMB (Rasta (Unflavored) Packet) 1 packet PO DAILYCM [facility] Last Admin: 01/15/21 08:21 Dose: 1 packet Documented by: Lactobacillus Acidophilus (Lactobacillus Acidophilus) 1 tablet PO DAILY [facility] Last Admin: 01/15/21 05:56 Dose: 1 tablet Documented by: Magnesium Chloride (Magnesium Chloride 64 Mg Delay Rel.Tablet) 128 mg PO BID [facility] Last Admin: 01/15/21 05:55 Dose: 128 mg Documented by: Magnesium Hydroxide (Magnesium Hydroxide 30 Ml Udc) 30 ml PO DAILY PRN PRN Reason: Constipation Multivitamins/Minerals (Multivitamins,Ther W-Minerals Tablet) 1 tablet PO DAILY@0800 [facility] Last Admin: 01/15/21 08:15 Dose: 1 tablet Documented by: Nystatin (Nystatin Powder 15gm Bottle) 1 applic TOPICAL BID [facility]; Protocol Last Admin: 01/15/21 05:58 Dose: 1 applicatio Documented by: Oxycodone HCl (Oxycodone 5 Mg Tablet) 5 mg PO Q4H PRN PRN PRN Reason: Pain Score 4-10 Polyethylene Glycol (Polyethylene Glycol 3350 17 Gm Packet) 17 gm PO DAILY [facility] Last Admin: 01/15/21 05:57 Dose: Not Given Documented by: Polysaccharide Iron Complex (Iron Polysaccharide Complex 150 Mg Capsule) 150 mg PO DAILYCM [facility] Last Admin: 01/15/21 08:16 Dose: 150 mg Documented by: Povidone Iodine (Povidone-Iodine Swabstick) 1 packet TOPICAL DAILY [facility]; Protocol Pregabalin (Pregabalin 50 Mg Capsule) 100 mg PO BID [facility] Last Admin: 01/15/21 05:56 Dose: 100 mg Documented by: Senna/Docusate Sodium (Senna/Docusate Sodium 1 Tablet) 1 tablet PO BID [facility] Last Admin: 01/15/21 05:55 Dose: 1 tablet Documented by: Sodium Chloride (0.9% Saline Lock 10 Ml Syringe) 10 - 40 ml IV UD PRN PRN Reason: Open End PICC Flush Last Admin: 01/15/21 15:29 Dose: 20 ml Documented by: Sodium Chloride (0.9 % Nacl (Sterile) Posiflush 10 Ml) 10 - 40 ml IV UD PRN PRN Reason: Port access or dressing change Tamsulosin HCl (Tamsulosin Hcl 0.4 Mg Capsule) 0.4 mg PO DAILY@1730 [facility] Last Admin: 01/14/21 17:35 Dose: 0.4 mg Documented by: Tuberculin PPD (Tuberculin,Purif.Prot.Deriv. 50 Tu/Ml Vial) 5 tu ID [id number] Stop: 01/20/21 10:01 Assessment/Plan All Active Problems Debility (Acute) Septic shock (Acute) Left heel ulceration down to subcutaneous tissue layer Right leg blisters Diabetic neuropathy Peripheral vascular disease to lower extremity Examination performed. Reviewed findings with patient. Patient underwent recent vascular procedure left LE per vascular surgery. Patient to continue follow up with vascular specialist for lower extremity vascular disease. Wound care left heel: Santyl (for enzymatic debridement), gauze, kerlix and light asya dressing change daily. Keep offloaded at all times, no weight to left foot. Blisters right leg: Cover with dry gauze and light asya dressing - change daily until heel. Podiatry will continue to follow.
[2021-01-15 16:50] LABS: Bedside Glucose 185 mg/dL (70-110)
[2021-01-15] MEDS: Tamsulosin HCl 0.4 MG Capsule PO (17:13)
[2021-01-15 21:16] LABS: Bedside Glucose 231 mg/dL (70-110)
[2021-01-15] MEDS: Atorvastatin Calcium 10 MG Tablet PO (21:35)
[2021-01-16 05:37] VITALS: BP 118/48; PULSE 73; RESP 16; TEMP 37; O2SAT 95
[2021-01-16] MEDS: Magnesium Chloride 64 MG Delay Rel.Tablet 128 MG PO ×2 (05:39→17:18)
[2021-01-16] MEDS: Cyanocobalamin 500 MCG Tablet 1000 MCG PO (05:39)
[2021-01-16] MEDS: amLODIPine 5 MG Tablet PO (05:40)
[2021-01-16] MEDS: Nystatin Powder 15gm Bottle 1 APPLIC TOPICAL ×2 (05:40→17:20)
[2021-01-16] MEDS: Pregabalin 50 MG Capsule 100 MG PO ×2 (05:42→17:22)
[2021-01-16 06:21] LABS: Bedside Glucose 122 mg/dL (70-110)
[2021-01-16] MEDS: Allopurinol 300 MG Tablet PO (07:58)
[2021-01-16] MEDS: Juven (unflavored) Packet 1 PACKET PO (07:58)
[2021-01-16] MEDS: Multivitamins,Ther W-Minerals Tablet 1 TABLET PO (07:58)
[2021-01-16] MEDS: Insulin Lispro 100 UNIT/ML INSULN.PEN 10 UNIT SC ×2 (07:58→17:17)
[2021-01-16] MEDS: Iron Polysaccharide Complex 150 MG CAPSULE PO (07:58)
[2021-01-16] MEDS: Folic Acid 1 MG Tablet PO (07:58)
[2021-01-16 10:51] LABS: Bedside Glucose 106 mg/dL (70-110)
[2021-01-16 13:31] VITALS: BP 165/74; PULSE 75; RESP 18; TEMP 36.4; O2SAT 97
--- NOTE | 2021-01-16 15:22 | NURSING ---
wound photo: left dick
--- NOTE | 2021-01-16 15:23 | NURSING ---
wound photo: left heel
[2021-01-16] MEDS: 0.9% Saline Lock 10 ML Syringe IV (15:48)
[2021-01-16 17:11] LABS: Bedside Glucose 169 mg/dL (70-110)
[2021-01-16] MEDS: Tamsulosin HCl 0.4 MG Capsule PO (17:18)
[2021-01-16] MEDS: Senna/Docusate Sodium 1 Tablet PO (17:19)
[2021-01-16] MEDS: Atorvastatin Calcium 10 MG Tablet PO (20:22)
[2021-01-16 21:26] LABS: Bedside Glucose 163 mg/dL (70-110)
[2021-01-17 05:25] VITALS: BP 149/63; PULSE 78; RESP 16; TEMP 37.2; O2SAT 96
[2021-01-17] MEDS: Pregabalin 50 MG Capsule 100 MG PO ×2 (05:26→17:39)
[2021-01-17] MEDS: amLODIPine 5 MG Tablet PO (05:27)
[2021-01-17] MEDS: Cyanocobalamin 500 MCG Tablet 1000 MCG PO (05:27)
[2021-01-17] MEDS: Magnesium Chloride 64 MG Delay Rel.Tablet 128 MG PO ×2 (05:27→17:35)
[2021-01-17] MEDS: Nystatin Powder 15gm Bottle 1 APPLIC TOPICAL ×2 (05:28→15:35)
[2021-01-17 06:31] LABS: Bedside Glucose 123 mg/dL (70-110)
[2021-01-17] MEDS: Insulin Lispro 100 UNIT/ML INSULN.PEN 10 UNIT SC ×2 (08:51→17:36)
[2021-01-17] MEDS: Folic Acid 1 MG Tablet PO (08:52)
[2021-01-17] MEDS: Iron Polysaccharide Complex 150 MG CAPSULE PO (08:52)
[2021-01-17] MEDS: Allopurinol 300 MG Tablet PO (08:52)
[2021-01-17] MEDS: Multivitamins,Ther W-Minerals Tablet 1 TABLET PO (08:52)
[2021-01-17] MEDS: Juven (unflavored) Packet 1 PACKET PO (08:52)
[2021-01-17 11:06] LABS: Bedside Glucose 105 mg/dL (70-110)
--- NOTE | 2021-01-17 11:49 | CASEMGMT ---
Social Work IDT met with patient and dtr via conference call for care plan meeting. Discussed patient's progress in therapy and nursing. Pt is now NWBS per Dr. Woodard on LLE. Pt having difficulty maintaining NWBS with trail of knee support walker and for tx. PT to practice w/c mobility. Pt remains on IV ATB Q24 with no stop date and wounds. Explained Medicare benefit - pt readmitted on Day 6. Encouraged to contact secondary insurance for copay coverage. Explained the goal is for pt to have wounds close to healed and no more IV ATB before returning home. However, unsure how long that will take and if insurance will continue to cover. Dtr suggested last resort for pt to DC to son's house in [place]. Pt would have skilled HHC, pt and/or son to learn wound dressing and IVs and/or pt can come to [facility]fusion [facility]. Dtr and pt expressed understanding. SW to continue to follow. Sarah Yoder, MICA PASTER FITTER / WELDER
[2021-01-17] MEDS: Collagenase 30gm Tube 1 APPLIC TOPICAL (12:06)
[2021-01-17] MEDS: 0.9% Saline Lock 10 ML Syringe IV (15:36)
[2021-01-17 15:58] LABS: Vancomycin, Trough Level 18.5 ug/mL (5.0-15.0)
[2021-01-17 16:00] VITALS: BP 150/67; PULSE 67; RESP 24; TEMP 36.7; O2SAT 96
--- NOTE | 2021-01-17 16:47 | CHAPLAIN ---
Type of Pastoral Visit ___ Initial Visit _x__ Follow-up Visit ___ On-call Visit ___ General Patient Visit ___ Spiritual Assessment ___ Family Conference ___ Bereavement ___ Rapid Response ___ Code Blue ___ Other (describe below) Pastoral Care Referral From _x__ Patient ___ Family ___ Nurse ___ Physician ___ Supervisor Plate Forming ___ Paraprofessional Aide ___ Other (describe below) Sacrament/Intervention _x__ Active listening ___ Anointing ___ Worship ___ Bereavement ___ Communion ___ Verena exploration ___ _x__ Life review _x__ Prayer ___ Reconciliation ___ Sacrament of Sick _x__ Supportive presence ___ Wedding ___ Other (describe below) Pastoral Comments
[2021-01-17 17:30] LABS: Bedside Glucose 123 mg/dL (70-110)
[2021-01-17] MEDS: Tamsulosin HCl 0.4 MG Capsule PO (17:36)
--- NOTE | 2021-01-17 19:53 | PCM.RX.CS ---
Consult Pharmacy has been consulted to manage selected antiobiotic: Vancomycin Type of Consult: Follow-up Labs: Sodium 140 mmol/L (136-145) 01/13/21 07:47 Potassium 5.0 mmol/L (3.5-5.1) 01/13/21 07:47 Chloride 113 mmol/L (98-107) H 01/13/21 07:47 Carbon Dioxide 24.0 mmol/L (21.0-32.0) 01/13/21 07:47 Anion Gap 3 (5-15) L 01/13/21 07:47 BUN 46 mg/dL (7-18) H 01/13/21 07:47 Creatinine 1.85 mg/dL (0.70-1.30) H 01/13/21 07:47 Est GFR (MDRD) Af Amer 46 mL/min (>60) L 01/13/21 07:47 Est GFR (MDRD) Non-Af 38 mL/min (>60) L 01/13/21 07:47 BUN/Creatinine Ratio 24.9 RATIO (10-20) H 01/13/21 07:47 Glucose 94 mg/dL (74-106) 01/13/21 07:47 Vancomycin Trough 18.5 ug/mL (5.0-15.0) H 01/17/21 15:06 Random Vancomycin 20.0 ug/mL (0.0-15.0) H 01/13/21 07:47 Goal Trough: 15-20 mcg/mL Pharmacy Plan for Drug Dosing: VANCOMYCIN LEVEL RECEIVED Current Vancomycin Dose: 750mg IV Q24hr Number of Doses Received: 3 Vancomycin Level: 18.5 Hours Since Last Dose: 23.5hr Renal Function: nnl Renal Function Trend: n/a Lab/Micro: no new Vancomycin Plan/Comments: Trough resulted in a value of 18.5, which is within therapeutic goal of 15-20. Will continue current dose and check a trough in 4 days to assess dosing at that time. Pending Level: 01/21/21 @1430 Pharmacy Service will continue to monitor and adjust dosing as required.
[2021-01-17 21:21] LABS: Bedside Glucose 180 mg/dL (70-110)
[2021-01-17] MEDS: Atorvastatin Calcium 10 MG Tablet PO (22:28)
[2021-01-18 04:22] VITALS: BP 135/60; PULSE 81; RESP 16; TEMP 37.1; O2SAT 95
[2021-01-18] MEDS: 0.9% Saline Lock 10 ML Syringe IV (04:30)
[2021-01-18] MEDS: Cyanocobalamin 500 MCG Tablet 1000 MCG PO (04:38)
[2021-01-18] MEDS: amLODIPine 5 MG Tablet PO (04:38)
[2021-01-18] MEDS: Polyethylene Glycol 3350 17 GM PACKET PO (04:39)
[2021-01-18] MEDS: Magnesium Chloride 64 MG Delay Rel.Tablet 128 MG PO ×2 (04:39→17:31)
[2021-01-18] MEDS: Nystatin Powder 15gm Bottle 1 APPLIC TOPICAL ×2 (04:40→17:35)
[2021-01-18 04:46] LABS: Bedside Glucose 133 mg/dL (70-110)
[2021-01-18] MEDS: Pregabalin 50 MG Capsule 100 MG PO ×2 (04:50→17:32)
[2021-01-18 06:15] LABS: Bedside Glucose 141 mg/dL (70-110)
[2021-01-18] MEDS: Collagenase 30gm Tube 1 APPLIC TOPICAL (07:37)
[2021-01-18] MEDS: Multivitamins,Ther W-Minerals Tablet 1 TABLET PO (08:31)
[2021-01-18] MEDS: Folic Acid 1 MG Tablet PO (08:31)
[2021-01-18] MEDS: Insulin Lispro 100 UNIT/ML INSULN.PEN 10 UNIT SC ×3 (08:31→17:30)
[2021-01-18] MEDS: Iron Polysaccharide Complex 150 MG CAPSULE PO (08:31)
[2021-01-18] MEDS: Allopurinol 300 MG Tablet PO (08:32)
[2021-01-18] MEDS: Juven (unflavored) Packet 1 PACKET PO (08:32)
[2021-01-18 11:05] LABS: Bedside Glucose 118 mg/dL (70-110)
--- NOTE | 2021-01-18 13:21 | NURSING ---
R' LEFT UNIT AT THIS TIME FOR COVID VACCINE IN [place]. TRANSPORTED BY [facility].
[2021-01-18 14:21] VITALS: BP 118/49; PULSE 79; RESP 16; TEMP 37.2; O2SAT 97
--- NOTE | 2021-01-18 16:45 | NURSING ---
pt back from [employer] vaccine appt, pt received moderna injection to RT deltoid. bandaid intact. pt received at [facility] in [place], [place].
[2021-01-18 17:00] LABS: Bedside Glucose 165 mg/dL (70-110)
[2021-01-18] MEDS: Tamsulosin HCl 0.4 MG Capsule PO (17:30)
[2021-01-18] MEDS: Atorvastatin Calcium 10 MG Tablet PO (21:11)
[2021-01-18 21:25] LABS: Bedside Glucose 202 mg/dL (70-110)
[2021-01-19 05:32] VITALS: BP 143/54; PULSE 78; RESP 16; TEMP 37.4; O2SAT 94
[2021-01-19] MEDS: Pregabalin 50 MG Capsule 100 MG PO ×2 (05:33→17:45)
[2021-01-19] MEDS: Magnesium Chloride 64 MG Delay Rel.Tablet 128 MG PO ×2 (05:34→17:42)
[2021-01-19] MEDS: amLODIPine 5 MG Tablet PO (05:34)
[2021-01-19] MEDS: Cyanocobalamin 500 MCG Tablet 1000 MCG PO (05:34)
[2021-01-19] MEDS: Nystatin Powder 15gm Bottle 1 APPLIC TOPICAL ×2 (05:36→12:40)
[2021-01-19 06:15] LABS: Bedside Glucose 103 mg/dL (70-110)
[2021-01-19] MEDS: Insulin Lispro 100 UNIT/ML INSULN.PEN 10 UNIT SC ×2 (08:26→17:41)
[2021-01-19] MEDS: Allopurinol 300 MG Tablet PO (08:27)
[2021-01-19] MEDS: Multivitamins,Ther W-Minerals Tablet 1 TABLET PO (08:27)
[2021-01-19] MEDS: Folic Acid 1 MG Tablet PO (08:27)
[2021-01-19] MEDS: Iron Polysaccharide Complex 150 MG CAPSULE PO (08:27)
[2021-01-19] MEDS: Juven (unflavored) Packet 1 PACKET PO (08:27)
[2021-01-19 11:10] LABS: Bedside Glucose 85 mg/dL (70-110)
--- NOTE | 2021-01-19 12:38 | NURSING ---
Soaks Rt index finger in warm soapy water while dressing change done to Lt heel.
[2021-01-19] MEDS: Collagenase 30gm Tube 1 APPLIC TOPICAL (12:39)
[2021-01-19 13:19] VITALS: BP 150/60; PULSE 76; RESP 18; TEMP 36.9; O2SAT 97
[2021-01-19] MEDS: 0.9% Saline Lock 10 ML Syringe IV ×2 (15:00→21:19)
[2021-01-19 15:41] LABS: Bedside Glucose 164 mg/dL (70-110)
[2021-01-19] MEDS: Tamsulosin HCl 0.4 MG Capsule PO (17:42)
[2021-01-19] MEDS: Atorvastatin Calcium 10 MG Tablet PO (21:14)
[2021-01-19 21:16] LABS: Bedside Glucose 210 mg/dL (70-110)
[2021-01-20 04:55] VITALS: BP 161/83; PULSE 92; RESP 18; TEMP 37.7; O2SAT 95
[2021-01-20] MEDS: Collagenase 30gm Tube 1 APPLIC TOPICAL (04:56)
[2021-01-20] MEDS: Pregabalin 50 MG Capsule 100 MG PO ×2 (04:57→17:27)
[2021-01-20] MEDS: Acetaminophen 500 MG Tablet 1000 MG PO ×2 (04:57→18:44)
[2021-01-20] MEDS: Cyanocobalamin 500 MCG Tablet 1000 MCG PO (04:58)
[2021-01-20] MEDS: amLODIPine 5 MG Tablet PO (04:58)
[2021-01-20] MEDS: Magnesium Chloride 64 MG Delay Rel.Tablet 128 MG PO ×2 (04:58→17:27)
[2021-01-20] MEDS: Nystatin Powder 15gm Bottle 1 APPLIC TOPICAL ×2 (04:59→17:26)
[2021-01-20 06:20] LABS: Bedside Glucose 130 mg/dL (70-110)
[2021-01-20 07:32] LABS: Absolute Lymphocyte Count 0.53 X10^3/uL (0.83-4.51); Absolute Neutrophil Count 2.6 X10^3/uL (2.0-7.7); Basophil# 0.03 X10^3/uL; Basophil% 0.7 % (0-1); Eosinophil# 0.25 X10^3/uL; Hematocrit 28.3 % (40-54); Hemoglobin 8.9 g/dL (13.0-16.5); Lymphocyte # 0.53 X10^3/ul (4.0); Lymphocyte % 12.7 % (19-41); Mean Corp Hgb Conc 31.4 g/dL (32-36); Mean Corpuscular Hgb 28.3 pg (27.0-32.0); Mean Corpuscular Volume 89.8 fL (80-94); Monocyte# 0.79 X10^3/uL; Monocyte% 18.9 % (0-10); NRBC Flagged by Analyzer 0 % (0-5); Neutrophil # 2.56 X10^3/uL (2.7-7.7); Neutrophil % 61.5 % (47-70); POSITIVE DIFFERENTIAL YES; Platelet Count 159 K/mm3 (150-450); RBC Distribution Width CV 15.5 % (11.6-14.6); RBC Distribution Width SD 51.2 fl (35.1-43.9); Red Blood Count 3.15 M/mm3 (4.6-6.2); White Blood Count 4.2 K/mm3 (4.4-11.0)
[2021-01-20 07:46] LABS: Anion Gap 6 (5-15); BUN 67 mg/dL (7-18); BUN/Creat Ratio 32.2 RATIO (10-20); Calcium,Total 8.7 mg/dL (8.5-10.1); Chloride 109 mmol/L (98-107); Creatinine, Serum 2.08 mg/dL (0.70-1.30); EST Glomerular Filtration Rate 33 mL/min (>60); Est Glom Filt Rate - Afr Amer 40 mL/min (>60); Estimated Creatinine Clearance 31.17 ml/min; Glucose 115 mg/dL (74-106); Potassium 5.2 mmol/L (3.5-5.1); Sodium Level 137 mmol/L (136-145)
[2021-01-20 07:57] LABS: Differential Indicated SCAN CRITERIA MET
[2021-01-20] MEDS: Insulin Lispro 100 UNIT/ML INSULN.PEN 10 UNIT SC (08:03)
[2021-01-20] MEDS: Folic Acid 1 MG Tablet PO (08:05)
[2021-01-20] MEDS: Iron Polysaccharide Complex 150 MG CAPSULE PO (08:05)
[2021-01-20] MEDS: Multivitamins,Ther W-Minerals Tablet 1 TABLET PO (08:05)
[2021-01-20] MEDS: Juven (unflavored) Packet 1 PACKET PO (08:05)
[2021-01-20] MEDS: Allopurinol 300 MG Tablet PO (08:06)
[2021-01-20 08:42] LABS: Hypochromasia 1+; Platelet Estimate ADEQUATE (ADEQ)
--- NOTE | 2021-01-20 09:43 | NURSING ---
pt labs came back K+ 5.2 Dr. fermin updated and order for kayexalate was entered.
[2021-01-20 11:11] LABS: Bedside Glucose 61 mg/dL (70-110)
[2021-01-20] MEDS: Sodium Polystyrene Sulfonate 15 GM/60 ML UDC 30 GM PO (11:18)
--- NOTE | 2021-01-20 11:27 | NURSING ---
Pt Blood sugar 61 A&Ox3 sweaty. Gave pt 2% milk and ensure pudding will recheck blood sugar.
[2021-01-20 11:50] LABS: Bedside Glucose 85 mg/dL (70-110)
[2021-01-20] MEDS: Tuberculin,Purif.prot.deriv. 50 TU/ML Vial 5 ML ID (12:34)
[2021-01-20 14:31] VITALS: BP 136/55; PULSE 73; RESP 18; TEMP 37.2; O2SAT 98
[2021-01-20] MEDS: 0.9% Saline Lock 10 ML Syringe IV ×2 (15:13→20:44)
[2021-01-20 16:26] LABS: Bedside Glucose 241 mg/dL (70-110)
[2021-01-20] MEDS: Insulin Lispro 100 UNIT/ML INSULN.PEN 8 UNIT SC (17:27)
[2021-01-20] MEDS: Tamsulosin HCl 0.4 MG Capsule PO (17:27)
[2021-01-20] MEDS: Atorvastatin Calcium 10 MG Tablet PO (20:19)
[2021-01-20 21:35] LABS: Bedside Glucose 183 mg/dL (70-110)
[2021-01-21 05:36] VITALS: BP 159/73; PULSE 99; RESP 18; TEMP 38.2; O2SAT 96
[2021-01-21] MEDS: Acetaminophen 500 MG Tablet 1000 MG PO ×2 (05:40→20:30)
[2021-01-21] MEDS: Magnesium Chloride 64 MG Delay Rel.Tablet 128 MG PO ×2 (05:41→17:43)
[2021-01-21] MEDS: Pregabalin 50 MG Capsule 100 MG PO ×2 (05:41→17:43)
[2021-01-21] MEDS: Cyanocobalamin 500 MCG Tablet 1000 MCG PO (05:42)
[2021-01-21] MEDS: amLODIPine 5 MG Tablet PO (05:43)
[2021-01-21] MEDS: 0.9% Saline Lock 10 ML Syringe IV ×2 (05:45→15:07)
[2021-01-21 06:25] LABS: Bedside Glucose 166 mg/dL (70-110)
[2021-01-21 07:37] LABS: Anion Gap 7 (5-15); BUN 61 mg/dL (7-18); BUN/Creat Ratio 31.8 RATIO (10-20); Calcium,Total 8.1 mg/dL (8.5-10.1); Chloride 107 mmol/L (98-107); Creatinine, Serum 1.92 mg/dL (0.70-1.30); EST Glomerular Filtration Rate 36 mL/min (>60); Est Glom Filt Rate - Afr Amer 44 mL/min (>60); Estimated Creatinine Clearance 33.77 ml/min; Glucose 156 mg/dL (74-106); Potassium 4.8 mmol/L (3.5-5.1); Sodium Level 134 mmol/L (136-145)
[2021-01-21] MEDS: Insulin Lispro 100 UNIT/ML INSULN.PEN 8 UNIT SC ×3 (08:23→17:45)
[2021-01-21] MEDS: Juven (unflavored) Packet 1 PACKET PO (08:25)
[2021-01-21] MEDS: Multivitamins,Ther W-Minerals Tablet 1 TABLET PO (08:25)
[2021-01-21] MEDS: Allopurinol 300 MG Tablet PO (08:25)
[2021-01-21] MEDS: Iron Polysaccharide Complex 150 MG CAPSULE PO (08:25)
[2021-01-21] MEDS: Nystatin Powder 15gm Bottle 1 APPLIC TOPICAL ×2 (08:25→17:47)
[2021-01-21] MEDS: Folic Acid 1 MG Tablet PO (08:25)
--- NOTE | 2021-01-21 09:43 | NURSING ---
Dr. Whelan called and updated on pt temperature of 100.8 and c/o of restless legs. Dr. whelan would like to keep an eye on him. Pt had Covid 19 Vaccine on 01/18. Will continue to monitor pt call light in reach.
[2021-01-21 11:01] LABS: Bedside Glucose 146 mg/dL (70-110)
[2021-01-21] MEDS: Collagenase 30gm Tube 1 APPLIC TOPICAL (11:42)
[2021-01-21 12:34] VITALS: TEMP 37.2
[2021-01-21 14:37] VITALS: BP 155/50; PULSE 78; RESP 16; TEMP 37.3; O2SAT 98
[2021-01-21 14:52] LABS: Vancomycin, Trough Level 18.5 ug/mL (5.0-15.0)
--- NOTE | 2021-01-21 14:56 | NURSING ---
Addendum entered by Milagro Warren 01/22/21 12:41: Dr Javier on unit to see resident. Also, daughter calls in and states that resident has reacted to Lyrica in the past and the resident had to take a generic from of it. If they think this is the reason for the rash, they could bring his Lyrica in from home. Addendum entered by Milagro Warren 01/22/21 10:18: Dr Javier office notified of resident developing rash and currently on IV vancomycin. Clinician states she will pass on this message to him. Original Note: Dr. Whelan notified of pt having a raised red rash on Chest, Abdomen, BUE, BLE, and back. Dr. Whelan ordered Medrol dose jacqueline and to notify Dr. Javier tomorrow. Dr. Whelan stated to continue to administer Vancomycin as ordered. Will continue to monitor pt and call light within reach.
--- NOTE | 2021-01-21 15:31 | PCM.RX.CS ---
Consult Pharmacy has been consulted to manage selected antiobiotic: Vancomycin Type of Consult: Follow-up Labs: Sodium 134 mmol/L (136-145) L 01/21/21 06:54 Potassium 4.8 mmol/L (3.5-5.1) 01/21/21 06:54 Chloride 107 mmol/L (98-107) 01/21/21 06:54 Carbon Dioxide 20.0 mmol/L (21.0-32.0) L 01/21/21 06:54 Anion Gap 7 (5-15) 01/21/21 06:54 BUN 61 mg/dL (7-18) H 01/21/21 06:54 Creatinine 1.92 mg/dL (0.70-1.30) H 01/21/21 06:54 Est GFR (MDRD) Af Amer 44 mL/min (>60) L 01/21/21 06:54 Est GFR (MDRD) Non-Af 36 mL/min (>60) L 01/21/21 06:54 BUN/Creatinine Ratio 31.8 RATIO (10-20) H 01/21/21 06:54 Glucose 156 mg/dL (74-106) H 01/21/21 06:54 Vancomycin Trough 18.5 ug/mL (5.0-15.0) H 01/21/21 14:21 Random Vancomycin 20.0 ug/mL (0.0-15.0) H 01/13/21 07:47 Goal Trough: 15-20 mcg/mL Pharmacy Plan for Drug Dosing: VANCOMYCIN LEVEL RECEIVED Current Vancomycin Dose: 750mg IV Q12hr Number of Doses Received: Several Vancomycin Level: 18.4 Hours Since Last Dose: ~23hr Renal Function: 1.92 Renal Function Trend: slight increase (SCr 1.85), but stable Lab/Micro: NNL Vancomycin Plan/Comments: Patient had trough drawn which resulted in a value of 18.4 (Goal 15-20). This is the patient's second level at goal. Plan is to continue current dose. Will get another trough in 4 days to assess. if therapeutic at that time, may consider checking a torugh weekly until abx are complete. Pending Level: 01/25/21 @1430 Pharmacy Service will continue to monitor and adjust dosing as required.
[2021-01-21 16:31] LABS: Bedside Glucose 141 mg/dL (70-110)
[2021-01-21] MEDS: Tamsulosin HCl 0.4 MG Capsule PO (17:43)
[2021-01-21] MEDS: MethylPREDNISolone DosePak 4 MG BOX PO ×2 (17:43→20:27)
[2021-01-21] MEDS: Atorvastatin Calcium 10 MG Tablet PO (20:28)
[2021-01-21 21:21] LABS: Bedside Glucose 216 mg/dL (70-110)
[2021-01-22 05:19] VITALS: BP 147/66; PULSE 82; RESP 16; TEMP 36.3; O2SAT 95
[2021-01-22] MEDS: Pregabalin 50 MG Capsule 100 MG PO ×2 (05:20→17:36)
[2021-01-22] MEDS: Cyanocobalamin 500 MCG Tablet 1000 MCG PO (05:21)
[2021-01-22] MEDS: Magnesium Chloride 64 MG Delay Rel.Tablet 128 MG PO ×2 (05:21→17:33)
[2021-01-22] MEDS: Nystatin Powder 15gm Bottle 1 APPLIC TOPICAL ×2 (05:22→18:16)
[2021-01-22] MEDS: amLODIPine 5 MG Tablet PO (05:22)
[2021-01-22] MEDS: 0.9% Saline Lock 10 ML Syringe IV ×2 (05:24→14:52)
[2021-01-22 06:30] LABS: Bedside Glucose 222 mg/dL (70-110)
[2021-01-22] MEDS: Juven (unflavored) Packet 1 PACKET PO (08:25)
[2021-01-22] MEDS: Iron Polysaccharide Complex 150 MG CAPSULE PO (08:25)
[2021-01-22] MEDS: Allopurinol 300 MG Tablet PO (08:25)
[2021-01-22] MEDS: Folic Acid 1 MG Tablet PO (08:25)
[2021-01-22] MEDS: Insulin Lispro 100 UNIT/ML INSULN.PEN 8 UNIT SC ×2 (08:26→11:58)
[2021-01-22] MEDS: MethylPREDNISolone DosePak 4 MG BOX PO ×4 (08:27→21:48)
[2021-01-22] MEDS: Multivitamins,Ther W-Minerals Tablet 1 TABLET PO (08:28)
[2021-01-22 11:20] LABS: Bedside Glucose 301 mg/dL (70-110)
[2021-01-22 13:22] LABS: Pathologist Review Reviewed
--- NOTE | 2021-01-22 14:30 | PN.ID_ITS ---
Patient Problems: Active and Suspected Problems Debility (Acute) Septic shock (Acute) Subjective: Got covid vaccine 01/17. On 01/21, developed hives on trunk and extremities. Does not know of any med changes. No issues where his shot was. No problems while vanc is running. Finger improving. - Physical Exam Vitals/I&O's: Vital Signs Temp Pulse Resp BP Pulse Ox 97.4 F L 82 16 147/66 H 95 01/22/21 05:19 01/22/21 05:19 01/22/21 05:19 01/22/21 05:19 01/22/21 05:19 Oxygen Delivery Method Room Air Weight: 132.676 kg Body Mass Index (BMI) 42.0 Intake and Output for Last 24 Hours 01/20/21 01/21/21 01/22/21 23:59 23:59 23:59 Intake Total 1225 / 1225 926.75 / 926.75 600 / 600 Output Total 700 / 700 Balance 525 / 525 926.75 / 926.75 600 / 600 General: Alert, Cooperative, No apparent distress Lungs: Clear to auscultation, Normal air movement Cardiovascular: Regular rate, Regular Rhythm Abdomen: Soft, Non Tender, Non-Distended Skin: Rash Present - fading macular rash on trunk/arms/legs Laboratory Results 01/20/21 07:09: Diff Path Review Reviewed 01/21/21 14:21: Vancomycin Trough 18.5 H 01/21/21 16:27: POC Glucose 141 H 01/21/21 21:14: POC Glucose 216 H 01/22/21 06:26: POC Glucose 222 H 01/22/21 11:06: POC Glucose 301 H Current Medications Acetaminophen (Acetaminophen 500 Mg Tablet) 1,000 mg PO Q6H PRN PRN PRN Reason: Pain Score 1-3 Last Admin: 01/21/21 20:30 Dose: 1,000 mg Documented by: Allopurinol (Allopurinol 300 Mg Tablet) 300 mg PO DAILY@0800 [facility] Last Admin: 01/22/21 08:25 Dose: 300 mg Documented by: Amlodipine Besylate (Amlodipine 5 Mg Tablet) 5 mg PO DAILY [facility] Last Admin: 01/22/21 05:22 Dose: 5 mg Documented by: Atorvastatin Calcium (Atorvastatin Calcium 10 Mg Tablet) 10 mg PO QHS [facility] Last Admin: 01/21/21 20:28 Dose: 10 mg Documented by: Bisacodyl (Bisacodyl 10 Mg Suppository) 10 mg RC DAILY PRN PRN Reason: Constipation Collagenase (Collagenase 30gm Tube) 1 applic TOPICAL DAILY [facility]; Protocol Last Admin: 01/21/21 11:42 Dose: 1 applicatio Documented by: Cyanocobalamin (Cyanocobalamin 500 Mcg Tablet) 1,000 mcg PO DAILY [facility] Last Admin: 01/22/21 05:21 Dose: 1,000 mcg Documented by: Emollient Ointment (Emollient Combination No.72 500 Ml Lotion) 1 applic TOPICAL 0600,2200 [facility]; Protocol Last Admin: 01/22/21 05:25 Dose: 1 applicatio Documented by: Folic Acid (Folic Acid 1 Mg Tablet) 1 mg PO DAILY@0800 [facility] Last Admin: 01/22/21 08:25 Dose: 1 mg Documented by: Heparin Sodium (Beef Lung) (Heparin Pf Lock 10 Units/Ml 50 Units/5 Ml Syringe) 50 units IV UD PRN PRN Reason: PICC Line Heparin Flush Last Admin: 01/20/21 20:49 Dose: 50 units Documented by: Vancomycin IV Pharmacy to Dose (1 ea/ Sodium Chloride) 500 mls @ 250 mls/hr IV X1 PRN; Protocol PRN Reason: Rx to Dose Sodium Chloride () 250 mls @ 15 mls/hr IV .[id number] PRN PRN Reason: Saline Flush Last Infusion: 01/21/21 16:34 Dose: 0 mls/hr Documented by: Sodium Chloride () 250 mls @ 15 mls/hr IV .[id number] PRN PRN Reason: Additional IVPB Infusion Vancomycin HCl 750 mg/ Sodium (Chloride) 265 mls @ 250 mls/hr IV Q24H [facility] Last Infusion: 01/21/21 16:34 Dose: Infused Documented by: Insulin Glargine (Insulin Glargine 100 Units/Ml Pen) 25 units SC QHS [facility] Last Admin: 01/21/21 21:51 Dose: 25 units Documented by: Insulin Human Lispro (Insulin Lispro 100 Unit/Ml Insuln.Pen) 8 unit SC TIDCM [facility] Last Admin: 01/22/21 11:58 Dose: 8 u Documented by: L-Arginine/L-Glutamine/Calcium HMB (Rasta (Unflavored) Packet) 1 packet PO DAILYCM [facility] Last Admin: 01/22/21 08:25 Dose: 1 packet Documented by: Lactobacillus Acidophilus (Lactobacillus Acidophilus) 1 tablet PO DAILY [facility] Last Admin: 01/22/21 05:21 Dose: 1 tablet Documented by: Magnesium Chloride (Magnesium Chloride 64 Mg Delay Rel.Tablet) 128 mg PO BID [facility] Last Admin: 01/22/21 05:21 Dose: 128 mg Documented by: Magnesium Hydroxide (Magnesium Hydroxide 30 Ml Udc) 30 ml PO DAILY PRN PRN Reason: Constipation Methylprednisolone (Methylprednisolone Dosepak 4 Mg Box) 4 mg PO 0800,1200,1700 ON [facility] OF [facility]; Taper Stop: 01/26/21 08:59 Last Admin: 01/22/21 11:59 Dose: 4 mg Documented by: Multivitamins/Minerals (Multivitamins,Ther W-Minerals Tablet) 1 tablet PO DAILY@0800 [facility] Last Admin: 01/22/21 08:28 Dose: 1 tablet Documented by: Nystatin (Nystatin Powder 15gm Bottle) 1 applic TOPICAL BID [facility]; Protocol Last Admin: 01/22/21 05:22 Dose: 1 applicatio Documented by: Oxycodone HCl (Oxycodone 5 Mg Tablet) 5 mg PO Q4H PRN PRN PRN Reason: Pain Score 4-10 Polyethylene Glycol (Polyethylene Glycol 3350 17 Gm Packet) 17 gm PO DAILY [facility] Last Admin: 01/22/21 05:22 Dose: Not Given Documented by: Polysaccharide Iron Complex (Iron Polysaccharide Complex 150 Mg [facility]apsule) [facility] Last Admin: 01/22/21 08:25 Dose: 150 mg Documented by: Pregabalin (Pregabalin 50 Mg Capsule) 100 mg PO BID [facility] Last Admin: 01/22/21 05:20 Dose: 100 mg Documented by: Senna/Docusate Sodium (Senna/Docusate Sodium 1 Tablet) 1 tablet PO BID [facility] Last Admin: 01/22/21 05:21 Dose: Not Given Documented by: Sodium Chloride (0.9% Saline Lock 10 Ml Syringe) 10 - 40 ml IV UD PRN PRN Reason: Open End PICC Flush Last Admin: 01/22/21 05:24 Dose: 20 ml Documented by: Sodium Chloride (0.9 % Nacl (Sterile) Posiflush 10 Ml) 10 - 40 ml IV UD PRN PRN Reason: Port access or dressing change Tamsulosin HCl (Tamsulosin Hcl 0.4 Mg Capsule) 0.4 mg PO DAILY@1730 [facility] Last Admin: 01/21/21 17:43 Dose: 0.4 mg Documented by: Medical Necessity - Tobacco Use Smoking Status: Former smoker Tobacco Use: Cigarettes, Cigars Route of nutrition/ use of supplements: [] Nutritional Intake: [] IV Site: [] Luu Catheter: [] - Assessment/Plan Antibiotics: [] Assessment/Plan: [] Active and Suspected Problems Debility (Acute) Septic shock (Acute) R index finger osteo - Cont vanc, plan on 4-6 week total course, may need longer course of po abx after that. Start date is 01/04 transfer here. Finger improving. rash/itching - improving with steroids. Not clearly related to vanc or covid shot. Will follow
[2021-01-22 14:55] VITALS: BP 146/75; PULSE 66; RESP 16; TEMP 36.2; O2SAT 97
--- NOTE | 2021-01-22 14:59 | NURSING ---
Resident up in chair. No complaints. Soaks Rt index finger in warm soapy water.
[2021-01-22] MEDS: Collagenase 30gm Tube 1 APPLIC TOPICAL (15:57)
[2021-01-22 16:11] LABS: Bedside Glucose 324 mg/dL (70-110)
[2021-01-22] MEDS: Insulin Lispro 100 UNIT/ML INSULN.PEN 10 UNIT SC ×2 (17:32→21:58)
[2021-01-22] MEDS: Tamsulosin HCl 0.4 MG Capsule PO (17:33)
[2021-01-22 21:21] LABS: Bedside Glucose 350 mg/dL (70-110)
[2021-01-22] MEDS: Atorvastatin Calcium 10 MG Tablet PO (21:50)
[2021-01-23 03:00] VITALS: BP 148/58; PULSE 58; RESP 16; TEMP 36.2; O2SAT 98
[2021-01-23] MEDS: Pregabalin 50 MG Capsule 100 MG PO ×2 (05:45→17:16)
[2021-01-23] MEDS: Magnesium Chloride 64 MG Delay Rel.Tablet 128 MG PO ×2 (05:46→17:13)
[2021-01-23] MEDS: amLODIPine 5 MG Tablet PO (05:46)
[2021-01-23] MEDS: Cyanocobalamin 500 MCG Tablet 1000 MCG PO (05:46)
[2021-01-23] MEDS: Nystatin Powder 15gm Bottle 1 APPLIC TOPICAL ×2 (05:49→17:17)
[2021-01-23] MEDS: 0.9% Saline Lock 10 ML Syringe IV ×2 (05:56→14:01)
[2021-01-23 06:07] LABS: Bedside Glucose 263 mg/dL (70-110)
[2021-01-23] MEDS: Iron Polysaccharide Complex 150 MG CAPSULE PO (08:10)
[2021-01-23] MEDS: MethylPREDNISolone DosePak 4 MG BOX PO ×4 (08:10→22:04)
[2021-01-23] MEDS: Folic Acid 1 MG Tablet PO (08:10)
[2021-01-23] MEDS: Juven (unflavored) Packet 1 PACKET PO (08:10)
[2021-01-23] MEDS: Allopurinol 300 MG Tablet PO (08:10)
[2021-01-23] MEDS: Insulin Lispro 100 UNIT/ML INSULN.PEN 13 UNIT SC ×2 (08:10→11:21)
[2021-01-23] MEDS: Multivitamins,Ther W-Minerals Tablet 1 TABLET PO (08:10)
--- NOTE | 2021-01-23 10:21 | NURSING ---
wound photo: left medial heel
--- NOTE | 2021-01-23 10:22 | NURSING ---
skin photo: right index finger
--- NOTE | 2021-01-23 10:22 | NURSING ---
wound photo: right dick
[2021-01-23 10:51] LABS: Bedside Glucose 274 mg/dL (70-110)
[2021-01-23] MEDS: Collagenase 30gm Tube 1 APPLIC TOPICAL (11:24)
[2021-01-23 13:10] VITALS: BP 146/70; PULSE 61; RESP 17; TEMP 36.4; O2SAT 96
--- NOTE | 2021-01-23 13:29 | MDS.RN ---
Information for the mds was obtained from review of the clinical record, interview of resident, staff, and direct observation of resident's care.
--- NOTE | 2021-01-23 15:53 | NURSING ---
dr fermin reviewed blood sugars, new orders to increase lantus and humalog. pt updated
[2021-01-23 15:56] LABS: Bedside Glucose 369 mg/dL (70-110)
[2021-01-23] MEDS: Tamsulosin HCl 0.4 MG Capsule PO (17:13)
--- NOTE | 2021-01-23 17:31 | NURSING ---
pt spoke with son, son feels rash may be d/t new tshirts that family brought in, they were never washed. This nurse removed and place pt in a gown. dr fermin updated.
--- NOTE | 2021-01-23 17:33 | NURSING ---
NOTIFIED DR. HILLS OF BS [address] HILLS INCREASED INSULIN AND ADDED X1 DOSE 10UNITS IN ADDITION TO BASAL DOSE THIS EVENING.
[2021-01-23] MEDS: Insulin Lispro 100 UNIT/ML INSULN.PEN 10 UNIT SC (17:54)
[2021-01-23] MEDS: Insulin Lispro 100 UNIT/ML INSULN.PEN 17 UNIT SC (17:54)
[2021-01-23 21:36] LABS: Bedside Glucose 459 mg/dL (70-110)
--- NOTE | 2021-01-23 21:40 | NURSING ---
Dr. Whelan notified of elevated blood sugar at 459. Pt asymptomatic. Insulin given per previous order, Lantus 50 units. No new orders received. Pt updated no new orders received. Instructed to call staff for any changes in vision or sensation. Encouraged fluids.
[2021-01-23] MEDS: Atorvastatin Calcium 10 MG Tablet PO (22:04)
[2021-01-24 05:00] VITALS: BP 136/67; PULSE 69; RESP 16; TEMP 37.1; O2SAT 97
[2021-01-24] MEDS: Cyanocobalamin 500 MCG Tablet 1000 MCG PO (05:20)
[2021-01-24] MEDS: Magnesium Chloride 64 MG Delay Rel.Tablet 128 MG PO ×2 (05:21→18:10)
[2021-01-24] MEDS: amLODIPine 5 MG Tablet PO (05:21)
[2021-01-24] MEDS: Nystatin Powder 15gm Bottle 1 APPLIC TOPICAL ×2 (05:24→18:10)
[2021-01-24] MEDS: Pregabalin 50 MG Capsule 100 MG PO ×2 (05:25→18:10)
[2021-01-24] MEDS: 0.9% Saline Lock 10 ML Syringe IV ×2 (05:32→14:33)
[2021-01-24 06:16] LABS: Bedside Glucose 449 mg/dL (70-110)
--- NOTE | 2021-01-24 06:20 | NURSING ---
[facility] [address] Whelan notified. New orders for Humalog 30 units now in addition to remainder of ordered doses.
[2021-01-24] MEDS: Insulin Lispro 100 UNIT/ML INSULN.PEN 30 UNIT SC (06:28)
[2021-01-24] MEDS: Iron Polysaccharide Complex 150 MG CAPSULE PO (08:29)
[2021-01-24] MEDS: Multivitamins,Ther W-Minerals Tablet 1 TABLET PO (08:29)
[2021-01-24] MEDS: Folic Acid 1 MG Tablet PO (08:29)
[2021-01-24] MEDS: MethylPREDNISolone DosePak 4 MG BOX PO ×3 (08:29→22:33)
[2021-01-24] MEDS: Juven (unflavored) Packet 1 PACKET PO (08:29)
[2021-01-24] MEDS: Allopurinol 300 MG Tablet PO (08:29)
[2021-01-24] MEDS: Insulin Lispro 100 UNIT/ML INSULN.PEN 20 UNIT SC (08:36)
[2021-01-24 08:51] LABS: Bedside Glucose 482 mg/dL (70-110)
[2021-01-24 11:06] LABS: Bedside Glucose 423 mg/dL (70-110)
--- NOTE | 2021-01-24 11:24 | NURSING ---
Notified Dr. Whelan of patient's current blood sugar. Received order to administer a 1 time dose of [address] Whelan also stated that the pt is to receive his noon humalog dose also. Order repeated back will add order.
[2021-01-24] MEDS: Insulin Lispro 100 UNIT/ML INSULN.PEN 80 UNIT SC (11:54)
--- NOTE | 2021-01-24 12:51 | NURSING ---
dr hairstonone here to change dressing.
--- NOTE | 2021-01-24 12:56 | PCM.PROGNOTE ---
Patient Problems: Active and Suspected Problems Debility (Acute) Septic shock (Acute) Subjective: The patient is a 80 year old gentleman known to podiatry service seen for left heel ulcer, leg swelling, and right leg blister. He denies lower extremity pain due to neuropathy; he has continued rest parasthesias to his hands and feet. He had angioplasty performed with vascular surgery at [facility] on 01/09 and perfusion to the foot was confirmed; additional intervention was not performed. He denies fever, chills, nausea, vomiting. He is on IV antibiotics for finger osteomyelitis. - Physical Exam Vitals/I&O's: Vital Signs Temp Pulse Resp BP Pulse Ox 98.8 F 69 16 136/67 H 97 01/24/21 05:00 01/24/21 05:00 01/24/21 05:00 01/24/21 05:00 01/24/21 05:00 Oxygen Delivery Method Room Air Weight: 133.158 kg Body Mass Index (BMI) 42.0 Intake and Output for Last 24 Hours 01/22/21 01/23/21 01/24/21 23:59 23:59 23:59 Intake Total 1105 / 1105 1626.25 / 1626.25 360 / 360 Balance 1105 / 1105 1626.25 / 1626.25 360 / 360 General: Alert, Oriented x3, Cooperative Extremities: No cyanosis, Capillary Refill Less than 3 Seconds, No Calf Tenderness, Diminished Peripheral Pulses, Edema Skin: Ulcer/ Wound - No purulence, erythema, streaking, odor, infection. The ulcer bed is granular and fibrous without deep probing. The peripheral skin is hairless, atrophic and dry. The skin to bilateral anterior shins are very thin and friable and padding is noted. There is no bogginess or fluctuance on palpation Musculoskeletal: No Tenderness to Palpation of Joints or Extremities, Muscle Wasting, - - Compartments remain soft to palpate bilateral lower extremities Neurological: - - Lack of normal epicritic sensation is consistent with his neuropathy status Psych/Mental Status: Normal Affect, Appropriate Laboratory Results 01/23/21 15:48: POC Glucose 369 H 01/23/21 21:18: POC Glucose 459 H* 01/24/21 06:06: POC Glucose 449 H 01/24/21 08:42: POC Glucose 482 H* 01/24/21 10:59: POC Glucose 423 H Current Medications Acetaminophen (Acetaminophen 500 Mg Tablet) 1,000 mg PO Q6H PRN PRN PRN Reason: Pain Score 1-3 Last Admin: 01/21/21 20:30 Dose: 1,000 mg Documented by: Allopurinol (Allopurinol 300 Mg Tablet) 300 mg PO DAILY@0800 [facility] Last Admin: 01/24/21 08:29 Dose: 300 mg Documented by: Amlodipine Besylate (Amlodipine 5 Mg Tablet) 5 mg PO DAILY [facility] Last Admin: 01/24/21 05:21 Dose: 5 mg Documented by: Atorvastatin Calcium (Atorvastatin Calcium 10 Mg Tablet) 10 mg PO QHS [facility] Last Admin: 01/23/21 22:04 Dose: 10 mg Documented by: Bisacodyl (Bisacodyl 10 Mg Suppository) 10 mg RC DAILY PRN PRN Reason: Constipation Collagenase (Collagenase 30gm Tube) 1 applic TOPICAL DAILY [facility]; Protocol Last Admin: 01/23/21 11:24 Dose: 1 applicatio Documented by: Cyanocobalamin (Cyanocobalamin 500 Mcg Tablet) 1,000 mcg PO DAILY [facility] Last Admin: 01/24/21 05:20 Dose: 1,000 mcg Documented by: Emollient Ointment (Emollient Combination No.72 500 Ml Lotion) 1 applic TOPICAL 0600,2200 [facility]; Protocol Last Admin: 01/24/21 05:22 Dose: 1 applicatio Documented by: Folic Acid (Folic Acid 1 Mg Tablet) 1 mg PO DAILY@0800 [facility] Last Admin: 01/24/21 08:29 Dose: 1 mg Documented by: Heparin Sodium (Beef Lung) (Heparin Pf Lock 10 Units/Ml 50 Units/5 Ml Syringe) 50 units IV UD PRN PRN Reason: PICC Line Heparin Flush Last Admin: 01/20/21 20:49 Dose: 50 units Documented by: Vancomycin IV Pharmacy to Dose (1 ea/ Sodium Chloride) 500 mls @ 250 mls/hr IV X1 PRN; Protocol PRN Reason: Rx to Dose Sodium Chloride () 250 mls @ 15 mls/hr IV .[id number] PRN PRN Reason: Saline Flush Last Infusion: 01/23/21 16:17 Dose: 0 mls/hr Documented by: Sodium Chloride () 250 mls @ 15 mls/hr IV .[id number] PRN PRN Reason: Additional IVPB Infusion Vancomycin HCl 750 mg/ Sodium (Chloride) 265 mls @ 250 mls/hr IV Q24H [facility] Last Infusion: 01/23/21 15:08 Dose: Infused Documented by: Insulin Glargine (Insulin Glargine 100 Units/Ml Pen) 100 units SC QHS [facility] Insulin Human Lispro (Insulin Lispro 100 Unit/Ml Insuln.Pen) 33 unit SC TIDCM [facility] L-Arginine/L-Glutamine/Calcium HMB (Rasta (Unflavored) Packet) [facility] Last Admin: 01/24/21 08:29 Dose: 1 packet Documented by: Lactobacillus Acidophilus (Lactobacillus Acidophilus) 1 tablet PO DAILY [facility] Last Admin: 01/24/21 05:20 Dose: 1 tablet Documented by: Magnesium Chloride (Magnesium Chloride 64 Mg Delay Rel.Tablet) 128 mg PO BID [facility] Last Admin: 01/24/21 05:21 Dose: 128 mg Documented by: Magnesium Hydroxide (Magnesium Hydroxide 30 Ml Udc) 30 ml PO DAILY PRN PRN Reason: Constipation Methylprednisolone (Methylprednisolone Dosepak 4 Mg Box) 4 mg PO 0800,1200,2200 [facility]; Taper Stop: 01/26/21 08:59 Last Admin: 01/24/21 11:56 Dose: 4 mg Documented by: Multivitamins/Minerals (Multivitamins,Ther W-Minerals Tablet) 1 tablet PO DAILY@0800 [facility] Last Admin: 01/24/21 08:29 Dose: 1 tablet Documented by: Nystatin (Nystatin Powder 15gm Bottle) 1 applic TOPICAL BID [facility]; Protocol Last Admin: 01/24/21 05:24 Dose: 1 applicatio Documented by: Oxycodone HCl (Oxycodone 5 Mg Tablet) 5 mg PO Q4H PRN PRN PRN Reason: Pain Score 4-10 Polyethylene Glycol (Polyethylene Glycol 3350 17 Gm Packet) 17 gm PO DAILY [facility] Last Admin: 01/24/21 05:21 Dose: Not Given Documented by: Polysaccharide Iron Complex (Iron Polysaccharide Complex 150 Mg Capsule) [facility] Last Admin: 01/24/21 08:29 Dose: 150 mg Documented by: Pregabalin (Pregabalin 50 Mg Capsule) 100 mg PO BID [facility] Last Admin: 01/24/21 05:25 Dose: 100 mg Documented by: Senna/Docusate Sodium (Senna/Docusate Sodium 1 Tablet) 1 tablet PO BID [facility] Last Admin: 01/24/21 05:21 Dose: Not Given Documented by: Sodium Chloride (0.9% Saline Lock 10 Ml Syringe) 10 - 40 ml IV UD PRN PRN Reason: Open End PICC Flush Last Admin: 01/24/21 05:32 Dose: 20 ml Documented by: Sodium Chloride (0.9 % Nacl (Sterile) Posiflush 10 Ml) 10 - 40 ml IV UD PRN PRN Reason: Port access or dressing change Tamsulosin HCl (Tamsulosin Hcl 0.4 Mg Capsule) 0.4 mg PO DAILY@1730 [facility] Last Admin: 01/23/21 17:13 Dose: 0.4 mg Documented by: Medical Necessity - Tobacco Use Smoking Status: Former smoker Tobacco Use: Cigarettes, Cigars Assessment/Plan All Active Problems Debility (Acute) Septic shock (Acute) Left heel ulceration down to subcutaneous tissue layer Right leg blisters Diabetic neuropathy Peripheral vascular disease to lower extremity Lower extremity edema Examination performed and his case was discussed. He is afebrile and his vital signs remained stable. No leukocytosis noted on the . Patient underwent recent vascular procedure left LE per vascular surgery. This was performed at [facility] and included a left lower extremity angiogram. This revealed patent vessels including excellent to below the knee vessels and a pedal arch. Additional intervention is not performed at this time. The patient was advised to continue follow up with vascular specialist for lower extremity vascular disease. Verbal consent was obtained and subcutaneous excisional debridement was performed to the left heel with a 15 blade scalpel. Predebridement measurements include 2.2 cm x 3.4 cm x 0.2 cm at the deepest central area. Post debridement measurements include 2.3 cm x 3.5 cm x 0.2 cm. The ulcer bed is 50: 50% granular and fibrous base with no purulence on expression or probe to deep bone structures. Pressure was applied to maintain hemostasis. He tolerated this procedure well without local anesthetic due to his neuropathy status. Wound care left heel: Santyl (for enzymatic debridement), gauze, kerlix and light asya dressing change daily. Keep offloaded at all times, no weight to left foot. Blisters right leg: Cover with dry ABD pad and light asya dressing. He is sensitive to the elastic bandages and requests gauze roll was applied first. He was reassured there are no signs of infection noted to the lower extremities. It is noted he is being treated for finger osteomyelitis and is under the management of infectious disease. Podiatry will continue to follow weekly. Medical management per Dr. Whelan is noted. He plans to follow-up at [facility] after discharge. Please do not hesitate to call if you have any questions. Faviola Sams DPM, [facility] [phone]
[2021-01-24 12:59] VITALS: BP 134/69; PULSE 69; RESP 18; TEMP 36.7; O2SAT 97
[2021-01-24] MEDS: Collagenase 30gm Tube 1 APPLIC TOPICAL (13:03)
[2021-01-24 13:10] LABS: Bedside Glucose 341 mg/dL (70-110)
[2021-01-24] MEDS: Insulin Lispro 100 UNIT/ML INSULN.PEN 33 UNIT SC (13:11)
[2021-01-24 14:20] LABS: Bedside Glucose 293 mg/dL (70-110)
[2021-01-24 16:10] LABS: Bedside Glucose 169 mg/dL (70-110)
[2021-01-24] MEDS: Tamsulosin HCl 0.4 MG Capsule PO (18:10)
[2021-01-24] MEDS: Insulin Lispro 100 UNIT/ML INSULN.PEN 10 UNIT SC (18:14)
[2021-01-24 18:16] LABS: Bedside Glucose 132 mg/dL (70-110)
[2021-01-24 21:41] LABS: Bedside Glucose 152 mg/dL (70-110)
[2021-01-24] MEDS: Atorvastatin Calcium 10 MG Tablet PO (22:33)
--- NOTE | 2021-01-24 22:53 | NURSING ---
Rt hand soaked in warm, soapy water for [address] order. Pt tolerated well.
[2021-01-25] MEDS: Cyanocobalamin 500 MCG Tablet 1000 MCG PO (05:50)
[2021-01-25] MEDS: Magnesium Chloride 64 MG Delay Rel.Tablet 128 MG PO ×2 (05:54→17:30)
[2021-01-25] MEDS: amLODIPine 5 MG Tablet PO (05:55)
[2021-01-25] MEDS: Nystatin Powder 15gm Bottle 1 APPLIC TOPICAL ×2 (05:56→17:30)
[2021-01-25] MEDS: Pregabalin 50 MG Capsule 100 MG PO ×2 (05:58→17:28)
[2021-01-25] MEDS: 0.9% Saline Lock 10 ML Syringe IV ×2 (06:03→15:12)
[2021-01-25 06:08] VITALS: BP 132/66; PULSE 61; RESP 16; TEMP 36.9; O2SAT 96
[2021-01-25 06:15] LABS: Bedside Glucose 155 mg/dL (70-110)
[2021-01-25] MEDS: Insulin Lispro 100 UNIT/ML INSULN.PEN 10 UNIT SC ×3 (08:25→17:29)
[2021-01-25] MEDS: Juven (unflavored) Packet 1 PACKET PO (08:26)
[2021-01-25] MEDS: Iron Polysaccharide Complex 150 MG CAPSULE PO (08:26)
[2021-01-25] MEDS: Multivitamins,Ther W-Minerals Tablet 1 TABLET PO (08:26)
[2021-01-25] MEDS: MethylPREDNISolone DosePak 4 MG BOX PO ×2 (08:26→21:05)
[2021-01-25] MEDS: Allopurinol 300 MG Tablet PO (08:26)
[2021-01-25] MEDS: Folic Acid 1 MG Tablet PO (08:26)
[2021-01-25 10:00] VITALS: RESP 18
[2021-01-25 10:55] LABS: Bedside Glucose 219 mg/dL (70-110)
[2021-01-25] MEDS: Collagenase 30gm Tube 1 APPLIC TOPICAL (11:55)
[2021-01-25 14:16] VITALS: BP 151/62; PULSE 50; RESP 16; TEMP 36.2; O2SAT 100
[2021-01-25 16:07] LABS: Vancomycin, Trough Level 17.8 ug/mL (5.0-15.0)
--- NOTE | 2021-01-25 16:28 | PCM.RX.CS ---
Consult Pharmacy has been consulted to manage selected antiobiotic: Vancomycin Type of Consult: Follow-up Labs: Sodium 134 mmol/L (136-145) L 01/21/21 06:54 Potassium 4.8 mmol/L (3.5-5.1) 01/21/21 06:54 Chloride 107 mmol/L (98-107) 01/21/21 06:54 Carbon Dioxide 20.0 mmol/L (21.0-32.0) L 01/21/21 06:54 Anion Gap 7 (5-15) 01/21/21 06:54 BUN 61 mg/dL (7-18) H 01/21/21 06:54 Creatinine 1.92 mg/dL (0.70-1.30) H 01/21/21 06:54 Est GFR (MDRD) Af Amer 44 mL/min (>60) L 01/21/21 06:54 Est GFR (MDRD) Non-Af 36 mL/min (>60) L 01/21/21 06:54 BUN/Creatinine Ratio 31.8 RATIO (10-20) H 01/21/21 06:54 Glucose 156 mg/dL (74-106) H 01/21/21 06:54 Vancomycin Trough 17.8 ug/mL (5.0-15.0) H 01/25/21 14:35 Random Vancomycin 20.0 ug/mL (0.0-15.0) H 01/13/21 07:47 Goal Trough: 15-20 mcg/mL Pharmacy Plan for Drug Dosing: VANCOMYCIN LEVEL RECEIVED Current Vancomycin Dose: 750mg q24h at 1500 Number of Doses Received: 11 doses of 750mg Vancomycin Level: 17.8 Hours Since Last Dose: 24 hours Renal Function: SrCr 1.92 Renal Function Trend: Lab/Micro: Vancomycin Plan/Comments: ordered goal trough is 15-20. Recommend continuing current dose of 750mg q24h. Pending Level: 01/29/21 at 1500 Pharmacy Service will continue to monitor and adjust dosing as required. Follow-Up Labs: Trough Vancomycin - 01/29/21 at 1430
--- NOTE | 2021-01-25 17:01 | CHAPLAIN ---
Type of Pastoral Visit ___ Initial Visit _x__ Follow-up Visit ___ On-call Visit ___ General Patient Visit ___ Spiritual Assessment ___ Family Conference ___ Bereavement ___ Rapid Response ___ Code Blue ___ Other (describe below) Pastoral Care Referral From ___ Patient ___ Family _x__ Nurse ___ Physician ___ Locomotive Operator ___ Appliance Counselor ___ Other (describe below) Sacrament/Intervention _x__ Active listening ___ Anointing ___ Latter Day ___ Bereavement ___ Communion ___ Verena exploration ___ _x__ Life review ___ Prayer ___ Reconciliation ___ Sacrament of Sick _x__ Supportive presence ___ Wedding ___ Other (describe below) Pastoral Comments
[2021-01-25 17:21] LABS: Bedside Glucose 280 mg/dL (70-110)
[2021-01-25] MEDS: Senna/Docusate Sodium 1 Tablet PO (17:30)
[2021-01-25] MEDS: Tamsulosin HCl 0.4 MG Capsule PO (17:30)
[2021-01-25] MEDS: Atorvastatin Calcium 10 MG Tablet PO (21:06)
[2021-01-25 22:11] LABS: Bedside Glucose 327 mg/dL (70-110)
[2021-01-26 05:34] VITALS: BP 139/54; PULSE 58; RESP 15; TEMP 36.6; O2SAT 97
[2021-01-26] MEDS: Cyanocobalamin 500 MCG Tablet 1000 MCG PO (05:37)
[2021-01-26] MEDS: Magnesium Chloride 64 MG Delay Rel.Tablet 128 MG PO ×2 (05:38→17:12)
[2021-01-26] MEDS: amLODIPine 5 MG Tablet PO (05:38)
[2021-01-26] MEDS: Pregabalin 50 MG Capsule 100 MG PO ×2 (05:38→17:11)
[2021-01-26] MEDS: Senna/Docusate Sodium 1 Tablet PO ×2 (05:38→17:11)
[2021-01-26] MEDS: Nystatin Powder 15gm Bottle 1 APPLIC TOPICAL ×2 (05:41→17:15)
[2021-01-26 06:30] LABS: Bedside Glucose 202 mg/dL (70-110)
[2021-01-26] MEDS: Insulin Lispro 100 UNIT/ML INSULN.PEN 10 UNIT SC ×3 (07:53→17:12)
[2021-01-26] MEDS: MethylPREDNISolone DosePak 4 MG BOX PO (07:54)
[2021-01-26] MEDS: Iron Polysaccharide Complex 150 MG CAPSULE PO (07:54)
[2021-01-26] MEDS: Multivitamins,Ther W-Minerals Tablet 1 TABLET PO (07:54)
[2021-01-26] MEDS: Juven (unflavored) Packet 1 PACKET PO (07:54)
[2021-01-26] MEDS: Folic Acid 1 MG Tablet PO (07:54)
[2021-01-26] MEDS: Allopurinol 300 MG Tablet PO (07:54)
[2021-01-26 10:36] LABS: Bedside Glucose 304 mg/dL (70-110)
[2021-01-26] MEDS: Collagenase 30gm Tube 1 APPLIC TOPICAL (11:21)
[2021-01-26 13:59] VITALS: BP 148/62; PULSE 58; RESP 16; TEMP 36.6; O2SAT 97
[2021-01-26] MEDS: Insulin Lispro 100 UNIT/ML INSULN.PEN 15 UNIT SC (14:09)
[2021-01-26] MEDS: 0.9% Saline Lock 10 ML Syringe IV (14:20)
--- NOTE | 2021-01-26 16:40 | NURSING ---
BLOOD SUGAR 343. DR HILLS NOTIFIED. ORDER FOR XTRA 30 UNITS HUMALOG IN ADDITION TO 10 UNITS AT DINNER.
[2021-01-26 16:41] LABS: Bedside Glucose 343 mg/dL (70-110)
[2021-01-26] MEDS: Tamsulosin HCl 0.4 MG Capsule PO (17:11)
[2021-01-26] MEDS: Insulin Lispro 100 UNIT/ML INSULN.PEN 30 UNIT SC ×2 (17:12→20:25)
[2021-01-26 20:26] LABS: Bedside Glucose 315 mg/dL (70-110)
[2021-01-26] MEDS: Atorvastatin Calcium 10 MG Tablet PO (20:26)
[2021-01-27 06:11] VITALS: BP 137/61; PULSE 57; RESP 16; TEMP 36.3; O2SAT 99
[2021-01-27] MEDS: amLODIPine 5 MG Tablet PO (06:14)
[2021-01-27] MEDS: Senna/Docusate Sodium 1 Tablet PO (06:14)
[2021-01-27] MEDS: Magnesium Chloride 64 MG Delay Rel.Tablet 128 MG PO ×2 (06:14→17:34)
[2021-01-27] MEDS: Cyanocobalamin 500 MCG Tablet 1000 MCG PO (06:14)
[2021-01-27] MEDS: Pregabalin 50 MG Capsule 100 MG PO ×2 (06:15→17:34)
[2021-01-27] MEDS: Nystatin Powder 15gm Bottle 1 APPLIC TOPICAL ×2 (06:15→17:34)
[2021-01-27 06:16] LABS: Bedside Glucose 127 mg/dL (70-110)
[2021-01-27 08:00] LABS: Absolute Lymphocyte Count 1.35 X10^3/uL (0.83-4.51); Absolute Neutrophil Count 3.9 X10^3/uL (2.0-7.7); Basophil# 0.05 X10^3/uL; Basophil% 0.7 % (0-1); Eosinophil# 0.75 X10^3/uL; Eosinophils% 10.4 % (0-5); Hematocrit 30.2 % (40-54); Hemoglobin 9.6 g/dL (13.0-16.5); Lymphocyte # 1.35 X10^3/ul (4.0); Lymphocyte % 18.6 % (19-41); Mean Corp Hgb Conc 31.8 g/dL (32-36); Mean Platelet Vol. 10.8 fl (6.2-12.0); Monocyte# 1.13 X10^3/uL; Monocyte% 15.6 % (0-10); NRBC Flagged by Analyzer 0 % (0-5); Neutrophil # 3.91 X10^3/uL (2.7-7.7); Platelet Count 172 K/mm3 (150-450); RBC Distribution Width CV 15.4 % (11.6-14.6); RBC Distribution Width SD 49.4 fl (35.1-43.9); Red Blood Count 3.43 M/mm3 (4.6-6.2); White Blood Count 7.2 K/mm3 (4.4-11.0)
[2021-01-27] MEDS: Multivitamins,Ther W-Minerals Tablet 1 TABLET PO (08:23)
[2021-01-27] MEDS: Folic Acid 1 MG Tablet PO (08:23)
[2021-01-27] MEDS: Iron Polysaccharide Complex 150 MG CAPSULE PO (08:23)
[2021-01-27] MEDS: Allopurinol 300 MG Tablet PO (08:23)
[2021-01-27] MEDS: Juven (unflavored) Packet 1 PACKET PO (08:24)
[2021-01-27 08:31] LABS: Anion Gap 7 (5-15); BUN 81 mg/dL (7-18); Calcium,Total 8.8 mg/dL (8.5-10.1); Chloride 112 mmol/L (98-107); Creatinine, Serum 1.93 mg/dL (0.70-1.30); EST Glomerular Filtration Rate 36 mL/min (>60); Est Glom Filt Rate - Afr Amer 44 mL/min (>60); Glucose 116 mg/dL (74-106); Potassium 4.8 mmol/L (3.5-5.1); Sodium Level 141 mmol/L (136-145)
[2021-01-27 11:01] LABS: Bedside Glucose 169 mg/dL (70-110)
[2021-01-27] MEDS: Insulin Lispro 100 UNIT/ML INSULN.PEN 10 UNIT SC ×2 (12:05→17:35)
[2021-01-27 13:25] VITALS: BP 162/74; PULSE 80; RESP 20; TEMP 36.3; O2SAT 99
[2021-01-27] MEDS: 0.9% Saline Lock 10 ML Syringe IV (14:55)
[2021-01-27 16:21] LABS: Bedside Glucose 186 mg/dL (70-110)
[2021-01-27] MEDS: Tamsulosin HCl 0.4 MG Capsule PO (17:34)
[2021-01-27] MEDS: Collagenase 30gm Tube 1 APPLIC TOPICAL (17:35)
[2021-01-27 21:41] LABS: Bedside Glucose 153 mg/dL (70-110)
[2021-01-27] MEDS: Atorvastatin Calcium 10 MG Tablet PO (22:11)
[2021-01-28] MEDS: Cyanocobalamin 500 MCG Tablet 1000 MCG PO (05:28)
[2021-01-28] MEDS: Magnesium Chloride 64 MG Delay Rel.Tablet 128 MG PO ×2 (05:28→17:26)
[2021-01-28] MEDS: amLODIPine 5 MG Tablet PO (05:29)
[2021-01-28] MEDS: Pregabalin 50 MG Capsule 100 MG PO ×2 (05:33→17:26)
[2021-01-28] MEDS: Nystatin Powder 15gm Bottle 1 APPLIC TOPICAL ×2 (05:33→17:26)
[2021-01-28 05:34] VITALS: BP 135/68; PULSE 68; RESP 18; TEMP 36.4; O2SAT 98
[2021-01-28 06:16] LABS: Bedside Glucose 168 mg/dL (70-110)
[2021-01-28] MEDS: 0.9 % NaCl (Sterile) Posiflush 10 mL IV (07:31)
[2021-01-28] MEDS: Juven (unflavored) Packet 1 PACKET PO (08:31)
[2021-01-28] MEDS: Allopurinol 300 MG Tablet PO (08:31)
[2021-01-28] MEDS: Multivitamins,Ther W-Minerals Tablet 1 TABLET PO (08:31)
[2021-01-28] MEDS: Folic Acid 1 MG Tablet PO (08:32)
[2021-01-28] MEDS: Iron Polysaccharide Complex 150 MG CAPSULE PO (08:32)
[2021-01-28] MEDS: Insulin Lispro 100 UNIT/ML INSULN.PEN 10 UNIT SC ×3 (08:32→17:26)
[2021-01-28 10:56] LABS: Bedside Glucose 183 mg/dL (70-110)
[2021-01-28] MEDS: Collagenase 30gm Tube 1 APPLIC TOPICAL (11:32)
[2021-01-28] MEDS: Alteplase 2 MG/2 ML Vial IV ×2 (12:11)
[2021-01-28] MEDS: 0.9% Saline Lock 10 ML Syringe IV ×3 (12:44→22:05)
[2021-01-28 13:13] VITALS: BP 127/58; PULSE 60; RESP 18; TEMP 36.3; O2SAT 96
[2021-01-28 16:45] LABS: Bedside Glucose 202 mg/dL (70-110)
[2021-01-28] MEDS: Senna/Docusate Sodium 1 Tablet PO (17:26)
[2021-01-28] MEDS: Tamsulosin HCl 0.4 MG Capsule PO (17:26)
[2021-01-28 21:31] LABS: Bedside Glucose 306 mg/dL (70-110)
[2021-01-28] MEDS: Atorvastatin Calcium 10 MG Tablet PO (21:56)
--- NOTE | 2021-01-29 04:09 | NURSING ---
Assisted pt back to bed from bathroom. Transfers done via w/c, pt declined to ambulate. Pericare completed per this nurse after lg bm- noted under I&O. Skin to buttocks and coccyx intact. Offered fluids and pt declines. Call light w/ in reach.
[2021-01-29] MEDS: Pregabalin 50 MG Capsule 100 MG PO ×2 (05:06→17:43)
[2021-01-29] MEDS: Cyanocobalamin 500 MCG Tablet 1000 MCG PO (05:06)
[2021-01-29] MEDS: Magnesium Chloride 64 MG Delay Rel.Tablet 128 MG PO ×2 (05:07→17:44)
[2021-01-29] MEDS: amLODIPine 5 MG Tablet PO (05:07)
[2021-01-29] MEDS: Nystatin Powder 15gm Bottle 1 APPLIC TOPICAL ×2 (05:08→15:10)
[2021-01-29] MEDS: 0.9% Saline Lock 10 ML Syringe IV ×2 (05:11→15:07)
[2021-01-29 05:14] VITALS: BP 152/62; PULSE 71; RESP 16; TEMP 36.2; O2SAT 96
[2021-01-29 06:21] LABS: Bedside Glucose 158 mg/dL (70-110)
[2021-01-29] MEDS: Insulin Lispro 100 UNIT/ML INSULN.PEN 10 UNIT SC ×3 (08:11→17:42)
[2021-01-29] MEDS: Allopurinol 300 MG Tablet PO (08:12)
[2021-01-29] MEDS: Multivitamins,Ther W-Minerals Tablet 1 TABLET PO (08:12)
[2021-01-29] MEDS: Juven (unflavored) Packet 1 PACKET PO (08:12)
[2021-01-29] MEDS: Iron Polysaccharide Complex 150 MG CAPSULE PO (08:12)
[2021-01-29] MEDS: Folic Acid 1 MG Tablet PO (08:12)
[2021-01-29 10:41] LABS: Bedside Glucose 180 mg/dL (70-110)
[2021-01-29] MEDS: Collagenase 30gm Tube 1 APPLIC TOPICAL (14:26)
--- NOTE | 2021-01-29 15:27 | NURSING ---
contacted Dr. Carlson's office to confirm stop date on Antibiotic. Dr. Carlson would like him to be on IV antibiotics for two more weeks. If pt needs to discharge he can change it to PO Antibiotic.
--- NOTE | 2021-01-29 15:32 | NURSING ---
wound photo: left dick
--- NOTE | 2021-01-29 15:34 | NURSING ---
wound photo: left heel
[2021-01-29 15:59] LABS: Vancomycin, Trough Level 17.7 ug/mL (5.0-15.0)
--- NOTE | 2021-01-29 16:41 | PCM.RX.CS ---
Consult Pharmacy has been consulted to manage selected antiobiotic: Vancomycin Type of Consult: Follow-up Labs: Sodium 141 mmol/L (136-145) 01/27/21 07:19 Potassium 4.8 mmol/L (3.5-5.1) 01/27/21 07:19 Chloride 112 mmol/L (98-107) H 01/27/21 07:19 Carbon Dioxide 22.0 mmol/L (21.0-32.0) 01/27/21 07:19 Anion Gap 7 (5-15) 01/27/21 07:19 BUN 81 mg/dL (7-18) H 01/27/21 07:19 Creatinine 1.93 mg/dL (0.70-1.30) H 01/27/21 07:19 Est GFR (MDRD) Af Amer 44 mL/min (>60) L 01/27/21 07:19 Est GFR (MDRD) Non-Af 36 mL/min (>60) L 01/27/21 07:19 BUN/Creatinine Ratio 42.0 RATIO (10-20) H 01/27/21 07:19 Glucose 116 mg/dL (74-106) H 01/27/21 07:19 Vancomycin Trough 17.7 ug/mL (5.0-15.0) H 01/29/21 14:55 Random Vancomycin 20.0 ug/mL (0.0-15.0) H 01/13/21 07:47 Goal Trough: 15-20 mcg/mL Pharmacy Plan for Drug Dosing: VANCOMYCIN LEVEL RECEIVED Current Vancomycin Dose: 750MG Q24H Number of Doses Received: MANY Vancomycin Level: 17.7 MG/DL Hours Since Last Dose: 24.5 HOURS Renal Function: SCR 1.93, CRCL 43.9ML/MIN UASING ADJ BW Renal Function Trend: STABLE Vancomycin Plan/Comments: CONTINUE CURRENT DOSING AND DRAW ANOTHER TROUGH IN 4 DAYS PER POLICY. Pharmacy Service will continue to monitor and adjust dosing as required. Labs to be done on [date and time ordered]: 02/02/21 @ [id number]
[2021-01-29 17:05] LABS: Bedside Glucose 146 mg/dL (70-110)
[2021-01-29] MEDS: Tamsulosin HCl 0.4 MG Capsule PO (17:44)
[2021-01-29 21:51] LABS: Bedside Glucose 158 mg/dL (70-110)
[2021-01-29] MEDS: Atorvastatin Calcium 10 MG Tablet PO (21:56)
[2021-01-30 04:50] VITALS: BP 153/67; PULSE 72; RESP 16; TEMP 36.6; O2SAT 98
[2021-01-30] MEDS: Magnesium Chloride 64 MG Delay Rel.Tablet 128 MG PO ×2 (04:59→17:31)
[2021-01-30] MEDS: Cyanocobalamin 500 MCG Tablet 1000 MCG PO (04:59)
[2021-01-30] MEDS: amLODIPine 5 MG Tablet PO (05:00)
[2021-01-30] MEDS: Pregabalin 50 MG Capsule 100 MG PO ×2 (05:08→17:33)
[2021-01-30] MEDS: Nystatin Powder 15gm Bottle 1 APPLIC TOPICAL ×2 (05:11→17:34)
[2021-01-30 06:20] LABS: Bedside Glucose 149 mg/dL (70-110)
[2021-01-30] MEDS: Multivitamins,Ther W-Minerals Tablet 1 TABLET PO (08:22)
[2021-01-30] MEDS: Insulin Lispro 100 UNIT/ML INSULN.PEN 10 UNIT SC ×3 (08:22→17:31)
[2021-01-30] MEDS: Iron Polysaccharide Complex 150 MG CAPSULE PO (08:22)
[2021-01-30] MEDS: Folic Acid 1 MG Tablet PO (08:22)
[2021-01-30] MEDS: Juven (unflavored) Packet 1 PACKET PO (08:22)
[2021-01-30] MEDS: Allopurinol 300 MG Tablet PO (08:22)
--- NOTE | 2021-01-30 10:51 | NURSING ---
Addendum entered by Amanda Humphries 01/30/21 17:41: dr fermin ordered hydrocortisone cream PRN. pt updated. but continues to deny any itching or pain Original Note: pts rash is back all over trunk, legs/arms. will update dr fermin. denies pain/itching
[2021-01-30 11:15] LABS: Bedside Glucose 132 mg/dL (70-110)
[2021-01-30] MEDS: Collagenase 30gm Tube 1 APPLIC TOPICAL (13:56)
[2021-01-30 14:14] VITALS: BP 130/61; PULSE 81; RESP 16; TEMP 36.1; O2SAT 99
[2021-01-30] MEDS: 0.9% Saline Lock 10 ML Syringe IV (15:21)
[2021-01-30 16:30] LABS: Bedside Glucose 152 mg/dL (70-110)
--- NOTE | 2021-01-30 16:39 | NURSING ---
pt soaking RT index finger in warm soapy water per order.
[2021-01-30] MEDS: Tamsulosin HCl 0.4 MG Capsule PO (17:31)
[2021-01-30] MEDS: Atorvastatin Calcium 10 MG Tablet PO (19:39)
[2021-01-30 23:20] LABS: Bedside Glucose 167 mg/dL (70-110)
[2021-01-31 06:16] VITALS: BP 146/64; PULSE 74; RESP 16; TEMP 36.9; O2SAT 95
[2021-01-31] MEDS: Magnesium Chloride 64 MG Delay Rel.Tablet 128 MG PO ×2 (06:17→17:24)
[2021-01-31] MEDS: Senna/Docusate Sodium 1 Tablet PO (06:17)
[2021-01-31] MEDS: Cyanocobalamin 500 MCG Tablet 1000 MCG PO (06:17)
[2021-01-31] MEDS: amLODIPine 5 MG Tablet PO (06:17)
[2021-01-31] MEDS: Nystatin Powder 15gm Bottle 1 APPLIC TOPICAL ×2 (06:18→17:25)
[2021-01-31] MEDS: Pregabalin 50 MG Capsule 100 MG PO ×2 (06:20→17:28)
[2021-01-31 06:21] LABS: Bedside Glucose 115 mg/dL (70-110)
[2021-01-31] MEDS: Allopurinol 300 MG Tablet PO (08:09)
[2021-01-31] MEDS: Multivitamins,Ther W-Minerals Tablet 1 TABLET PO (08:09)
[2021-01-31] MEDS: Iron Polysaccharide Complex 150 MG CAPSULE PO (08:09)
[2021-01-31] MEDS: Folic Acid 1 MG Tablet PO (08:09)
[2021-01-31] MEDS: Juven (unflavored) Packet 1 PACKET PO (08:09)
[2021-01-31 11:05] LABS: Bedside Glucose 210 mg/dL (70-110)
[2021-01-31] MEDS: Insulin Lispro 100 UNIT/ML INSULN.PEN 10 UNIT SC ×2 (11:38→17:29)
[2021-01-31] MEDS: Hydrocortisone 2.5% Crm 1 APPLIC TOPICAL (11:39)
[2021-01-31] MEDS: Collagenase 30gm Tube 1 APPLIC TOPICAL (11:42)
--- NOTE | 2021-01-31 14:59 | CASEMGMT ---
Social Work Met with patient for DC planning. Discussed options. Pt states he has wide enough doorways in his home to fit his w/c, however, the bathroom is small and could not fit the w/c and he has 3 steps to enter. Offered getting a ramp and to provide resources. Pt states he can call his nephew to get one built now. Offered BSC for bathroom - pt denied - stated he could furniture surf, or if he would just bear weight - if he is still NWB at [place]. Discussed wound dressing changes daily at this time and options at [place], if that order still stands. Pt could not come to the hospital daily for changes, but would be open to once a week if needed. Nephew could assist on weekends - he works during the week and lives about 30 mins away. Offered nonskilled HHC. Pt agreeable to look into. Provided list and encouraged to contact for pricing and availability and get name on waitlist. Pt stated he had a business intelligence consultant through [facility] in [place] prior to pandemic. SW to contact and inquire about services. Pt still paid out of pocket for those services. Explained the goal is for pt to DC after IV ATBs are done, depending on wound and physical abilities. Pt agreeable. Contacted [facility] and explained those business intelligence consultant services were discontinued d/t to the pandemic and they do not offer aides. Notified pt. Will continue to follow. BALA CoreaW
[2021-01-31] MEDS: 0.9% Saline Lock 10 ML Syringe IV (15:01)
[2021-01-31 15:12] VITALS: BP 139/60; PULSE 71; RESP 16; TEMP 36.4; O2SAT 99
[2021-01-31 16:45] LABS: Bedside Glucose 163 mg/dL (70-110)
[2021-01-31] MEDS: Tamsulosin HCl 0.4 MG Capsule PO (17:26)
[2021-01-31 21:16] LABS: Bedside Glucose 196 mg/dL (70-110)
[2021-01-31] MEDS: Atorvastatin Calcium 10 MG Tablet PO (22:21)
[2021-02-01] MEDS: Pregabalin 50 MG Capsule 100 MG PO ×2 (05:28→17:15)
[2021-02-01] MEDS: Magnesium Chloride 64 MG Delay Rel.Tablet 128 MG PO ×2 (05:30→17:16)
[2021-02-01] MEDS: Cyanocobalamin 500 MCG Tablet 1000 MCG PO (05:31)
[2021-02-01] MEDS: amLODIPine 5 MG Tablet PO (05:31)
[2021-02-01] MEDS: Nystatin Powder 15gm Bottle 1 APPLIC TOPICAL ×2 (05:32→17:17)
[2021-02-01] MEDS: 0.9% Saline Lock 10 ML Syringe IV ×2 (05:33→17:15)
[2021-02-01 05:40] VITALS: BP 109/49; PULSE 100; RESP 18; TEMP 36.8; O2SAT 95
[2021-02-01 06:11] LABS: Bedside Glucose 166 mg/dL (70-110)
[2021-02-01] MEDS: Multivitamins,Ther W-Minerals Tablet 1 TABLET PO (07:43)
[2021-02-01] MEDS: Iron Polysaccharide Complex 150 MG CAPSULE PO (07:43)
[2021-02-01] MEDS: Folic Acid 1 MG Tablet PO (07:43)
[2021-02-01] MEDS: Insulin Lispro 100 UNIT/ML INSULN.PEN 10 UNIT SC ×3 (07:43→17:18)
[2021-02-01] MEDS: Juven (unflavored) Packet 1 PACKET PO (07:43)
[2021-02-01] MEDS: Allopurinol 300 MG Tablet PO (07:43)
[2021-02-01 11:11] LABS: Bedside Glucose 182 mg/dL (70-110)
[2021-02-01] MEDS: Hydrocortisone 2.5% Crm 1 APPLIC TOPICAL (11:36)
--- NOTE | 2021-02-01 13:41 | NURSING ---
Addendum entered by Edel Chua 02/01/21 14:33: Dr. Carlson Entered new order for Zyvox 600mg BID. Original Note: Called Dr. Carlson office to see if it would be possible to put pt on oral antibiotic d/t rash on body. Awaiting call.
[2021-02-01 14:54] VITALS: BP 142/54; PULSE 79; RESP 16; TEMP 36.8; O2SAT 99
[2021-02-01 17:16] LABS: Bedside Glucose 207 mg/dL (70-110)
[2021-02-01] MEDS: Collagenase 30gm Tube 1 APPLIC TOPICAL (17:16)
[2021-02-01] MEDS: Linezolid 600 MG Tablet PO (17:17)
[2021-02-01] MEDS: Tamsulosin HCl 0.4 MG Capsule PO (17:18)
--- NOTE | 2021-02-01 18:01 | NURSING ---
R' SOAKED RIGHT INDEX FINGER. PATTED DRY PER ORDER.
--- NOTE | 2021-02-01 18:39 | NURSING ---
NO BLOOD RETURN TO BOTH LUMENS ON PICC LINE. FLUSHES W/O DIFFICULTY. NOTIFIED DR HILLS. HE'S AWARE THAT VANC WAS DC'D AND HE WAS STARTED ON ZYVOX BID. ORDER FOR CATHFLO.
[2021-02-01 21:36] LABS: Bedside Glucose 284 mg/dL (70-110)
[2021-02-01] MEDS: Atorvastatin Calcium 10 MG Tablet PO (21:55)
[2021-02-01] MEDS: Alteplase 2 MG/2 ML Vial IV (21:57)
[2021-02-02 05:00] VITALS: BP 145/69; PULSE 89; RESP 16; TEMP 36.7
[2021-02-02 06:15] LABS: Bedside Glucose 165 mg/dL (70-110)
[2021-02-02] MEDS: Magnesium Chloride 64 MG Delay Rel.Tablet 128 MG PO ×2 (06:28→17:13)
[2021-02-02] MEDS: Nystatin Powder 15gm Bottle 1 APPLIC TOPICAL ×2 (06:29→12:55)
[2021-02-02] MEDS: amLODIPine 5 MG Tablet PO (06:29)
[2021-02-02] MEDS: Cyanocobalamin 500 MCG Tablet 1000 MCG PO (06:30)
[2021-02-02] MEDS: Pregabalin 50 MG Capsule 100 MG PO ×2 (06:34→17:18)
--- NOTE | 2021-02-02 06:47 | NURSING ---
Patient continues to have a rash all over his body. Patient is more swollen this morning in all extremities and in his face. Dr. Whelan notified of this new orders given.
[2021-02-02] MEDS: Linezolid 600 MG Tablet PO ×2 (07:12→17:13)
[2021-02-02] MEDS: Insulin Lispro 100 UNIT/ML INSULN.PEN 10 UNIT SC ×3 (08:29→17:14)
[2021-02-02] MEDS: Multivitamins,Ther W-Minerals Tablet 1 TABLET PO (08:31)
[2021-02-02] MEDS: Iron Polysaccharide Complex 150 MG CAPSULE PO (08:31)
[2021-02-02] MEDS: Folic Acid 1 MG Tablet PO (08:31)
[2021-02-02] MEDS: Juven (unflavored) Packet 1 PACKET PO (08:31)
[2021-02-02] MEDS: MethylPREDNISolone DosePak 4 MG BOX PO ×4 (08:33→22:13)
[2021-02-02] MEDS: Allopurinol 300 MG Tablet PO (08:40)
--- NOTE | 2021-02-02 10:35 | PCM.PROGNOTE ---
Patient Problems: Active and Suspected Problems Debility (Acute) Septic shock (Acute) Subjective: Patient was seen this morning for follow up on left heel ulcer. He relates wound has been doing well and healing. He has a diffuse rash on his body for several days. Otherwise no complaints. - Physical Exam Vitals/I&O's: Vital Signs Temp Pulse Resp BP Pulse Ox 98.0 F 89 16 145/69 H 99 02/02/21 05:00 02/02/21 05:00 02/02/21 05:00 02/02/21 05:00 02/01/21 14:54 Oxygen Delivery Method Room Air Weight: 131.814 kg Body Mass Index (BMI) 42.0 Intake and Output for Last 24 Hours 01/31/21 02/01/21 02/02/21 23:59 23:59 23:59 Intake Total 1592.25 / 1592.25 840 / 840 240 / 240 Balance 1592.25 / 1592.25 840 / 840 240 / 240 General: Alert, Oriented x3, Cooperative, No apparent distress Extremities: Capillary Refill Less than 3 Seconds, No Calf Tenderness, - - Left heel ulceration down to subcutaneous tissue, there is noted to be fibrotic/granular tissue mix, there is no maloder, no fluctuance, no cellulitis, no exposed or probing to bone, no acute ischemia to the foot or ankle - wound measures 2cm x 3cm and 0.2cm in depth -healing Skin: Ulcer/ Wound - No new area of breakdown left foot/ankle or leg, no evidence of acute ischemia noted. Patient with chronic peripheral neuropathy to the lower extremities. Laboratory Results 02/01/21 11:07: POC Glucose 182 H 02/01/21 16:07: POC Glucose 207 H 02/01/21 21:25: POC Glucose 284 H 02/02/21 06:03: POC Glucose 165 H Current Medications Acetaminophen (Acetaminophen 500 Mg Tablet) 1,000 mg PO Q6H PRN PRN PRN Reason: Pain Score 1-3 Last Admin: 01/21/21 20:30 Dose: 1,000 mg Documented by: Allopurinol (Allopurinol 300 Mg Tablet) 300 mg PO DAILY@0800 [facility] Last Admin: 02/02/21 08:40 Dose: 300 mg Documented by: Amlodipine Besylate (Amlodipine 5 Mg Tablet) 5 mg PO DAILY [facility] Last Admin: 02/02/21 06:29 Dose: 5 mg Documented by: Atorvastatin Calcium (Atorvastatin Calcium 10 Mg Tablet) 10 mg PO QHS [facility] Last Admin: 02/01/21 21:55 Dose: 10 mg Documented by: Bisacodyl (Bisacodyl 10 Mg Suppository) 10 mg RC DAILY PRN PRN Reason: Constipation Collagenase (Collagenase 30gm Tube) 1 applic TOPICAL DAILY@1000 [facility]; Protocol Last Admin: 02/01/21 17:16 Dose: 1 applicatio Documented by: Cyanocobalamin (Cyanocobalamin 500 Mcg Tablet) 1,000 mcg PO DAILY [facility] Last Admin: 02/02/21 06:30 Dose: 1,000 mcg Documented by: Emollient Ointment (Emollient Combination No.72 500 Ml Lotion) 1 applic TOPICAL 0600,2200 [facility]; Protocol Last Admin: 02/02/21 08:39 Dose: 1 applicatio Documented by: Folic Acid (Folic Acid 1 Mg Tablet) 1 mg PO DAILY@0800 [facility] Last Admin: 02/02/21 08:31 Dose: 1 mg Documented by: Glucagon (Glucagon 1 Mg/Ml Syringe) 1 mg SC X1 PRN PRN Reason: HYPOGLYCEMIA Heparin Sodium (Beef Lung) (Heparin Pf Lock 10 Units/Ml 50 Units/5 Ml Syringe) 50 units IV UD PRN PRN Reason: PICC Line Heparin Flush Last Admin: 01/27/21 16:29 Dose: 50 units Documented by: Hydrocortisone (Hydrocortisone 2.5% Crm) 1 applic TOPICAL BID PRN PRN; Protocol PRN Reason: RASH/TOPICAL IRRITATION Last Admin: 02/01/21 11:36 Dose: 1 applic Documented by: Sodium Chloride () 250 mls @ 15 mls/hr IV .[id number] PRN PRN Reason: Saline Flush Last Infusion: 01/31/21 10:32 Dose: Infused Documented by: Sodium Chloride () 250 mls @ 15 mls/hr IV .[id number] PRN PRN Reason: Additional IVPB Infusion Last Infusion: 01/31/21 17:35 Dose: 0 mls/hr Documented by: Insulin Glargine (Insulin Glargine 100 Units/Ml Pen) 35 units SC QHS [facility] Last Admin: 02/01/21 22:02 Dose: 35 u Documented by: Insulin Human Lispro (Insulin Lispro 100 Unit/Ml Insuln.Pen) 10 unit SC TIDCM [facility] Last Admin: 02/02/21 08:29 Dose: 10 units Documented by: L-Arginine/L-Glutamine/Calcium HMB (Rasta (Unflavored) Packet) [facility] Last Admin: 02/02/21 08:31 Dose: 1 packet Documented by: Lactobacillus Acidophilus (Lactobacillus Acidophilus) 1 tablet PO DAILY [facility] Last Admin: 02/02/21 06:27 Dose: 1 tablet Documented by: Linezolid (Linezolid 600 Mg Tablet) 600 mg PO BID [facility] Last Admin: 02/02/21 07:12 Dose: 600 mg Documented by: Magnesium Chloride (Magnesium Chloride 64 Mg Delay Rel.Tablet) 128 mg PO BID [facility] Last Admin: 02/02/21 06:28 Dose: 128 mg Documented by: Magnesium Hydroxide (Magnesium Hydroxide 30 Ml Udc) 30 ml PO DAILY PRN PRN Reason: Constipation Methylprednisolone (Methylprednisolone Dosepak 4 Mg Box) 8 mg PO 0800 [facility]; Taper Stop: 02/07/21 08:59 Last Admin: 02/02/21 08:33 Dose: 8 mg Documented by: Multivitamins/Minerals (Multivitamins,Ther W-Minerals Tablet) 1 tablet PO DAILY@0800 [facility] Last Admin: 02/02/21 08:31 Dose: 1 tablet Documented by: Nystatin (Nystatin Powder 15gm Bottle) 1 applic TOPICAL BID [facility]; Protocol Last Admin: 02/02/21 06:29 Dose: 1 applicatio Documented by: Oxycodone HCl (Oxycodone 5 Mg Tablet) 5 mg PO Q4H PRN PRN PRN Reason: Pain Score 4-10 Polyethylene Glycol (Polyethylene Glycol 3350 17 Gm Packet) 17 gm PO DAILY [facility] Last Admin: 02/02/21 06:35 Dose: Not Given Documented by: Polysaccharide Iron Complex (Iron Polysaccharide Complex 150 Mg Capsule) [facility] Last Admin: 02/02/21 08:31 Dose: 150 mg Documented by: Pregabalin (Pregabalin 50 Mg Capsule) 100 mg PO BID [facility] Last Admin: 02/02/21 06:34 Dose: 100 mg Documented by: Senna/Docusate Sodium (Senna/Docusate Sodium 1 Tablet) 1 tablet PO BID [facility] Last Admin: 02/02/21 06:30 Dose: Not Given Documented by: Sodium Chloride (0.9% Saline Lock 10 Ml Syringe) 10 - 40 ml IV UD PRN PRN Reason: Open End PICC Flush Last Admin: 02/01/21 17:15 Dose: 40 ml Documented by: Sodium Chloride (0.9 % Nacl (Sterile) Posiflush 10 Ml) 10 - 40 ml IV UD PRN PRN Reason: Port access or dressing change Last Admin: 01/28/21 07:31 Dose: 20 ml Documented by: Tamsulosin HCl (Tamsulosin Hcl 0.4 Mg Capsule) 0.4 mg PO DAILY@1730 [facility] Last Admin: 02/01/21 17:18 Dose: 0.4 mg Documented by: Medical Necessity - Tobacco Use Smoking Status: Former smoker Tobacco Use: Cigarettes, Cigars Assessment/Plan All Active Problems Blister of right leg (Acute) Debility (Acute) Septic shock (Acute) Left heel ulceration down to subcutaneous tissue layer - healing Right leg blisters Diabetic neuropathy Peripheral vascular disease to lower extremity Examination performed. Reviewed findings with patient. Patient underwent recent vascular procedure left LE per vascular surgery. This was performed at [facility] and included a left lower extremity angiogram. This revealed patent vessels including excellent to below the knee vessels and a pedal arch. Additional intervention is not performed at this time. The patient was advised to continue follow up with vascular specialist for lower extremity vascular disease. Wound care left heel: Selective debridement completed removing callus around the margins of the wound in sharp fashion. Santyl (for enzymatic debridement), gauze, kerlix and light asya dressing change daily. Keep offloaded at all times, no weight to left foot. He relates he has an offloading heel boot at home - requested patient to have family bring so he can use it. He was reassured there are no signs of infection noted at this time. Right leg: Continue to cover with dry ABD pad and light asya dressing. He is sensitive to the elastic bandages and requests gauze roll was applied first. Podiatry will continue to follow weekly. Medical management per Dr. Whelan is noted. He plans to follow-up at [facility] after discharge. Please do not hesitate to call if you have any questions.
[2021-02-02 10:51] LABS: Bedside Glucose 235 mg/dL (70-110)
[2021-02-02] MEDS: Collagenase 30gm Tube 1 APPLIC TOPICAL (11:59)
[2021-02-02] MEDS: 0.9% Saline Lock 10 ML Syringe IV (12:52)
--- NOTE | 2021-02-02 12:58 | NURSING ---
Resident states he has called his son and his son will bring in his boot from home to offload his Lt heel.
[2021-02-02 13:43] VITALS: BP 135/58; PULSE 83; RESP 18; TEMP 36.3; O2SAT 96
--- NOTE | 2021-02-02 14:51 | PCM.PN.ID ---
Patient Problems: Active and Suspected Problems Debility (Acute) Septic shock (Acute) Subjective: Finger less red, better ROM. Rash and itching returned and has worsened. - Physical Exam Vitals/I&O's: Vital Signs Temp Pulse Resp BP Pulse Ox 97.4 F L 83 18 135/58 H 96 02/02/21 13:43 02/02/21 13:43 02/02/21 13:43 02/02/21 13:43 02/02/21 13:43 Oxygen Delivery Method Room Air Weight: 131.814 kg Body Mass Index (BMI) 42.0 Intake and Output for Last 24 Hours 01/31/21 02/01/21 02/02/21 23:59 23:59 23:59 Intake Total 1592.25 / 1592.25 840 / 840 360 / 360 Balance 1592.25 / 1592.25 840 / 840 360 / 360 General: Alert, Cooperative, No apparent distress Lungs: Clear to auscultation, Normal air movement Cardiovascular: Regular rate, Regular Rhythm Abdomen: Soft, Non Tender, Non-Distended Skin: Rash Present - on trunk and some on arms/legs. Laboratory Results 02/01/21 16:07: POC Glucose 207 H 02/01/21 21:25: POC Glucose 284 H 02/02/21 06:03: POC Glucose 165 H 02/02/21 10:38: POC Glucose 235 H Current Medications Acetaminophen (Acetaminophen 500 Mg Tablet) 1,000 mg PO Q6H PRN PRN PRN Reason: Pain Score 1-3 Last Admin: 01/21/21 20:30 Dose: 1,000 mg Documented by: Allopurinol (Allopurinol 300 Mg Tablet) 300 mg PO DAILY@0800 [facility] Last Admin: 02/02/21 08:40 Dose: 300 mg Documented by: Amlodipine Besylate (Amlodipine 5 Mg Tablet) 5 mg PO DAILY [facility] Last Admin: 02/02/21 06:29 Dose: 5 mg Documented by: Atorvastatin Calcium (Atorvastatin Calcium 10 Mg Tablet) 10 mg PO QHS [facility] Last Admin: 02/01/21 21:55 Dose: 10 mg Documented by: Bisacodyl (Bisacodyl 10 Mg Suppository) 10 mg RC DAILY PRN PRN Reason: Constipation Collagenase (Collagenase 30gm Tube) 1 applic TOPICAL DAILY@1000 [facility]; Protocol Last Admin: 02/02/21 11:59 Dose: 1 applicatio Documented by: Cyanocobalamin (Cyanocobalamin 500 Mcg Tablet) 1,000 mcg PO DAILY [facility] Last Admin: 02/02/21 06:30 Dose: 1,000 mcg Documented by: Emollient Ointment (Emollient Combination No.72 500 Ml Lotion) 1 applic TOPICAL 0600,2200 [facility]; Protocol Last Admin: 02/02/21 08:39 Dose: 1 applicatio Documented by: Folic Acid (Folic Acid 1 Mg Tablet) 1 mg PO DAILY@0800 [facility] Last Admin: 02/02/21 08:31 Dose: 1 mg Documented by: Glucagon (Glucagon 1 Mg/Ml Syringe) 1 mg SC X1 PRN PRN Reason: HYPOGLYCEMIA Heparin Sodium (Beef Lung) (Heparin Pf Lock 10 Units/Ml 50 Units/5 Ml Syringe) 50 units IV UD PRN PRN Reason: PICC Line Heparin Flush Last Admin: 01/27/21 16:29 Dose: 50 units Documented by: Hydrocortisone (Hydrocortisone 2.5% Crm) 1 applic TOPICAL BID PRN PRN; Protocol PRN Reason: RASH/TOPICAL IRRITATION Last Admin: 02/01/21 11:36 Dose: 1 applic Documented by: Sodium Chloride () 250 mls @ 15 mls/hr IV .[id number] PRN PRN Reason: Saline Flush Last Infusion: 01/31/21 10:32 Dose: Infused Documented by: Sodium Chloride () 250 mls @ 15 mls/hr IV .[id number] PRN PRN Reason: Additional IVPB Infusion Last Infusion: 01/31/21 17:35 Dose: 0 mls/hr Documented by: Insulin Glargine (Insulin Glargine 100 Units/Ml Pen) 35 units SC QHS [facility] Last Admin: 02/01/21 22:02 Dose: 35 u Documented by: Insulin Human Lispro (Insulin Lispro 100 Unit/Ml Insuln.Pen) 10 unit SC TIDCM [facility] Last Admin: 02/02/21 11:57 Dose: 10 units Documented by: L-Arginine/L-Glutamine/Calcium HMB (Rasta (Unflavored) Packet) 1 packet PO DAILYCM [facility] Last Admin: 02/02/21 08:31 Dose: 1 packet Documented by: Lactobacillus Acidophilus (Lactobacillus Acidophilus) 1 tablet PO DAILY [facility] Last Admin: 02/02/21 06:27 Dose: 1 tablet Documented by: Linezolid (Linezolid 600 Mg Tablet) 600 mg PO BID [facility] Last Admin: 02/02/21 07:12 Dose: 600 mg Documented by: Magnesium Chloride (Magnesium Chloride 64 Mg Delay Rel.Tablet) 128 mg PO BID [facility] Last Admin: 02/02/21 06:28 Dose: 128 mg Documented by: Magnesium Hydroxide (Magnesium Hydroxide 30 Ml Udc) 30 ml PO DAILY PRN PRN Reason: Constipation Methylprednisolone (Methylprednisolone Dosepak 4 Mg Box) 4 mg PO 1200,1700 [facility]; Taper Stop: 02/07/21 08:59 Last Admin: 02/02/21 11:58 Dose: 4 mg Documented by: Multivitamins/Minerals (Multivitamins,Ther W-Minerals Tablet) 1 tablet PO DAILY@0800 [facility] Last Admin: 02/02/21 08:31 Dose: 1 tablet Documented by: Nystatin (Nystatin Powder 15gm Bottle) 1 applic TOPICAL BID [facility]; Protocol Last Admin: 02/02/21 12:55 Dose: 1 applicatio Documented by: Oxycodone HCl (Oxycodone 5 Mg Tablet) 5 mg PO Q4H PRN PRN PRN Reason: Pain Score 4-10 Polyethylene Glycol (Polyethylene Glycol 3350 17 Gm Packet) 17 gm PO DAILY [facility] Last Admin: 02/02/21 06:35 Dose: Not Given Documented by: Polysaccharide Iron Complex (Iron Polysaccharide Complex 150 Mg [facility]apsule) [facility] Last Admin: 02/02/21 08:31 Dose: 150 mg Documented by: Pregabalin (Pregabalin 50 Mg Capsule) 100 mg PO BID [facility] Last Admin: 02/02/21 06:34 Dose: 100 mg Documented by: Senna/Docusate Sodium (Senna/Docusate Sodium 1 Tablet) 1 tablet PO BID [facility] Last Admin: 02/02/21 06:30 Dose: Not Given Documented by: Sodium Chloride (0.9% Saline Lock 10 Ml Syringe) 10 - 40 ml IV UD PRN PRN Reason: Open End PICC Flush Last Admin: 02/02/21 12:52 Dose: 10 ml Documented by: Sodium Chloride (0.9 % Nacl (Sterile) Posiflush 10 Ml) 10 - 40 ml IV UD PRN PRN Reason: Port access or dressing change Last Admin: 01/28/21 07:31 Dose: 20 ml Documented by: Tamsulosin HCl (Tamsulosin Hcl 0.4 Mg Capsule) 0.4 mg PO DAILY@1730 [facility] Last Admin: 02/01/21 17:18 Dose: 0.4 mg Documented by: Medical Necessity - Tobacco Use Smoking Status: Former smoker Tobacco Use: Cigarettes, Cigars Route of nutrition/ use of supplements: [] Nutritional Intake: [] IV Site: [] Luu Catheter: [] - Assessment/Plan Antibiotics: [] Assessment/Plan: [] Active and Suspected Problems Debility (Acute) Septic shock (Acute) 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 Start date is 01/04 transfer here. Finger improving. Stop date planned for 02/12/21. rash/itching - returned. 02/01, changed vanc to po linezolid to see if that helps. Will follow
[2021-02-02 16:21] LABS: Bedside Glucose 280 mg/dL (70-110)
[2021-02-02] MEDS: Tamsulosin HCl 0.4 MG Capsule PO (17:14)
[2021-02-02 21:31] LABS: Bedside Glucose 370 mg/dL (70-110)
[2021-02-02] MEDS: Atorvastatin Calcium 10 MG Tablet PO (22:13)
[2021-02-02] MEDS: Insulin Lispro 100 UNIT/ML INSULN.PEN 30 UNIT SC (22:15)
[2021-02-03 06:25] LABS: Bedside Glucose 209 mg/dL (70-110)
[2021-02-03] MEDS: amLODIPine 5 MG Tablet PO (06:42)
[2021-02-03] MEDS: Nystatin Powder 15gm Bottle 1 APPLIC TOPICAL ×2 (06:42→17:18)
[2021-02-03] MEDS: Magnesium Chloride 64 MG Delay Rel.Tablet 128 MG PO ×2 (06:43→17:18)
[2021-02-03] MEDS: Cyanocobalamin 500 MCG Tablet 1000 MCG PO (06:44)
[2021-02-03 06:45] VITALS: BP 131/59; PULSE 72; RESP 16; TEMP 36.3; O2SAT 97
[2021-02-03] MEDS: Linezolid 600 MG Tablet PO ×2 (06:45→17:18)
[2021-02-03] MEDS: Pregabalin 50 MG Capsule 100 MG PO ×2 (06:49→17:18)
[2021-02-03] MEDS: 0.9% Saline Lock 10 ML Syringe IV ×2 (06:50→21:48)
[2021-02-03 07:12] LABS: Absolute Lymphocyte Count 0.59 X10^3/uL (0.83-4.51); Absolute Neutrophil Count 4.8 X10^3/uL (2.0-7.7); Basophil# 0.03 X10^3/uL; Basophil% 0.5 % (0-1); Eosinophil# 0.02 X10^3/uL; Eosinophils% 0.3 % (0-5); Hematocrit 31.9 % (40-54); Hemoglobin 10.3 g/dL (13.0-16.5); Lymphocyte # 0.59 X10^3/ul (4.0); Mean Corp Hgb Conc 32.3 g/dL (32-36); Mean Corpuscular Hgb 28.3 pg (27.0-32.0); Mean Corpuscular Volume 87.6 fL (80-94); Mean Platelet Vol. 11.1 fl (6.2-12.0); Monocyte# 0.47 X10^3/uL; NRBC Flagged by Analyzer 0 % (0-5); Neutrophil # 4.76 X10^3/uL (2.7-7.7); Neutrophil % 80.7 % (47-70); POSITIVE DIFFERENTIAL YES; Platelet Count 161 K/mm3 (150-450); RBC Distribution Width CV 15.6 % (11.6-14.6); RBC Distribution Width SD 50.4 fl (35.1-43.9); Red Blood Count 3.64 M/mm3 (4.6-6.2); White Blood Count 5.9 K/mm3 (4.4-11.0)
[2021-02-03 07:33] LABS: Anion Gap 5 (5-15); BUN 85 mg/dL (7-18); BUN/Creat Ratio 33.5 RATIO (10-20); Calcium,Total 8.4 mg/dL (8.5-10.1); Chloride 112 mmol/L (98-107); Creatinine, Serum 2.54 mg/dL (0.70-1.30); Differential Indicated SCAN CRITERIA MET; EST Glomerular Filtration Rate 26 mL/min (>60); Est Glom Filt Rate - Afr Amer 32 mL/min (>60); Estimated Creatinine Clearance 25.53 ml/min; Glucose 229 mg/dL (74-106); Potassium 5.1 mmol/L (3.5-5.1); Sodium Level 138 mmol/L (136-145)
[2021-02-03] MEDS: Juven (unflavored) Packet 1 PACKET PO (08:11)
[2021-02-03] MEDS: Multivitamins,Ther W-Minerals Tablet 1 TABLET PO (08:13)
[2021-02-03] MEDS: Folic Acid 1 MG Tablet PO (08:13)
[2021-02-03] MEDS: Iron Polysaccharide Complex 150 MG CAPSULE PO (08:13)
[2021-02-03] MEDS: Insulin Lispro 100 UNIT/ML INSULN.PEN 20 UNIT SC (08:13)
[2021-02-03] MEDS: MethylPREDNISolone DosePak 4 MG BOX PO ×4 (08:13→21:42)
[2021-02-03] MEDS: Allopurinol 300 MG Tablet PO (08:13)
[2021-02-03 09:01] LABS: Differential Comment SCANNED
[2021-02-03 11:36] LABS: Bedside Glucose 321 mg/dL (70-110)
[2021-02-03] MEDS: Insulin Lispro 100 UNIT/ML INSULN.PEN 33 UNIT SC ×2 (12:02→17:18)
--- NOTE | 2021-02-03 15:38 | NURSING ---
soaking pt index finger rt hand per order in warm soapy water. pt sitting in WC, denies needs. continues with bright red rash all over body. denies itching or c/o. dr Whelan increased insulins d/t elevated Blood sugars from prednisone.
[2021-02-03 15:41] VITALS: BP 164/87; PULSE 89; RESP 16; TEMP 36.1; O2SAT 98
--- NOTE | 2021-02-03 16:26 | NURSING ---
son brought in heel offloading boot per dr Woodard request.
[2021-02-03 16:31] LABS: Bedside Glucose 245 mg/dL (70-110)
[2021-02-03] MEDS: Tamsulosin HCl 0.4 MG Capsule PO (17:18)
[2021-02-03 21:25] LABS: Bedside Glucose 310 mg/dL (70-110)
[2021-02-03] MEDS: Collagenase 30gm Tube 1 APPLIC TOPICAL (21:37)
[2021-02-03] MEDS: Atorvastatin Calcium 10 MG Tablet PO (21:42)
--- NOTE | 2021-02-03 22:00 | NURSING ---
Addendum entered by Diane Lowe 02/03/21 22:03: Green heel boot applied to lt foot. Original Note: Resting in bed, refused offer of bedtime snack with insulin tonight.
[2021-02-03] MEDS: Insulin Lispro 100 UNIT/ML INSULN.PEN 30 UNIT SC (23:09)
[2021-02-04 05:34] VITALS: BP 126/53; PULSE 67; RESP 18; TEMP 36.2; O2SAT 96
[2021-02-04] MEDS: 0.9% Saline Lock 10 ML Syringe IV ×2 (05:35→14:57)
[2021-02-04] MEDS: Linezolid 600 MG Tablet PO ×2 (05:37→17:37)
[2021-02-04] MEDS: Pregabalin 50 MG Capsule 100 MG PO ×2 (05:37→17:40)
[2021-02-04] MEDS: amLODIPine 5 MG Tablet PO (05:37)
[2021-02-04] MEDS: Cyanocobalamin 500 MCG Tablet 1000 MCG PO (05:37)
[2021-02-04] MEDS: Magnesium Chloride 64 MG Delay Rel.Tablet 128 MG PO ×2 (05:38→17:37)
[2021-02-04] MEDS: Nystatin Powder 15gm Bottle 1 APPLIC TOPICAL ×2 (05:40→17:38)
[2021-02-04 06:30] LABS: Bedside Glucose 81 mg/dL (70-110)
[2021-02-04] MEDS: Juven (unflavored) Packet 1 PACKET PO (08:06)
[2021-02-04] MEDS: MethylPREDNISolone DosePak 4 MG BOX PO ×4 (08:06→21:58)
[2021-02-04] MEDS: Allopurinol 300 MG Tablet PO (08:07)
[2021-02-04] MEDS: Folic Acid 1 MG Tablet PO (08:07)
[2021-02-04] MEDS: Multivitamins,Ther W-Minerals Tablet 1 TABLET PO (08:07)
[2021-02-04] MEDS: Iron Polysaccharide Complex 150 MG CAPSULE PO (08:07)
--- NOTE | 2021-02-04 09:52 | NURSING ---
dr fermin updated on Blood sugar this am & that insulin held this AM. no new orders, continue insulins as ordered, ok that AM dose held.
[2021-02-04 10:00] VITALS: PULSE 84; RESP 18; O2SAT 96
[2021-02-04 11:21] LABS: Bedside Glucose 148 mg/dL (70-110)
--- NOTE | 2021-02-04 11:25 | NURSING ---
pt soaking RT index finger in soapy water at this time.
[2021-02-04] MEDS: Collagenase 30gm Tube 1 APPLIC TOPICAL (12:28)
[2021-02-04 14:27] VITALS: BP 151/68; PULSE 86; RESP 11; TEMP 36.4; O2SAT 95
[2021-02-04 16:40] LABS: Bedside Glucose 195 mg/dL (70-110)
[2021-02-04] MEDS: Tamsulosin HCl 0.4 MG Capsule PO (17:37)
[2021-02-04] MEDS: Insulin Lispro 100 UNIT/ML INSULN.PEN 33 UNIT SC (17:44)
[2021-02-04 21:31] LABS: Bedside Glucose 235 mg/dL (70-110)
[2021-02-04] MEDS: Atorvastatin Calcium 10 MG Tablet PO (21:59)
[2021-02-05] MEDS: Magnesium Chloride 64 MG Delay Rel.Tablet 128 MG PO ×2 (04:59→17:47)
[2021-02-05] MEDS: Cyanocobalamin 500 MCG Tablet 1000 MCG PO (05:00)
[2021-02-05] MEDS: Linezolid 600 MG Tablet PO ×2 (05:00→17:47)
[2021-02-05] MEDS: Pregabalin 50 MG Capsule 100 MG PO ×2 (05:00→17:50)
[2021-02-05] MEDS: amLODIPine 5 MG Tablet PO (05:01)
[2021-02-05] MEDS: Nystatin Powder 15gm Bottle 1 APPLIC TOPICAL ×2 (05:02→17:46)
[2021-02-05 05:03] VITALS: BP 145/55; PULSE 82; RESP 16; TEMP 35.8; O2SAT 96
[2021-02-05 06:20] LABS: Bedside Glucose 137 mg/dL (70-110)
[2021-02-05] MEDS: Insulin Lispro 100 UNIT/ML INSULN.PEN 10 UNIT SC ×3 (08:19→17:45)
[2021-02-05] MEDS: MethylPREDNISolone DosePak 4 MG BOX PO ×3 (08:21→23:07)
[2021-02-05] MEDS: Juven (unflavored) Packet 1 PACKET PO (08:22)
[2021-02-05] MEDS: Iron Polysaccharide Complex 150 MG CAPSULE PO (08:22)
[2021-02-05] MEDS: Multivitamins,Ther W-Minerals Tablet 1 TABLET PO (08:22)
[2021-02-05] MEDS: Allopurinol 300 MG Tablet PO (08:22)
[2021-02-05] MEDS: Folic Acid 1 MG Tablet PO (08:22)
[2021-02-05 11:16] LABS: Bedside Glucose 158 mg/dL (70-110)
[2021-02-05 13:27] VITALS: BP 141/58; PULSE 75; RESP 20; TEMP 36.2; O2SAT 95
[2021-02-05] MEDS: Collagenase 30gm Tube 1 APPLIC TOPICAL (14:46)
--- NOTE | 2021-02-05 14:49 | NURSING ---
Dressing done to Lt heel. resident tolerated well. Soaked Rt index finger in warm soapy water.
[2021-02-05 17:41] LABS: Bedside Glucose 211 mg/dL (70-110)
[2021-02-05] MEDS: Tamsulosin HCl 0.4 MG Capsule PO (17:47)
[2021-02-05] MEDS: 0.9% Saline Lock 10 ML Syringe IV (17:51)
--- NOTE | 2021-02-05 19:45 | PCM.TCUNOT ---
Subjective: Resident seen for regulatory visit. He is sitting in chair in room after lunch. He has again developed diffuse erythematous papular rash all over his body. Unknown if related to Vancomycin, but Dr. Carlson already changed Vancomycin to Linezolid. The rash does not itch, and he is on systemic steroid taper to treat it. Will monitor. Vitals/I&O's: Vital Signs Temp Pulse Resp BP Pulse Ox 97.1 F L 75 20 H 141/58 H 95 02/05/21 13:27 02/05/21 13:27 02/05/21 13:27 02/05/21 13:27 02/05/21 13:27 Oxygen Delivery Method Room Air Weight: 131.814 kg Body Mass Index (BMI) 42.0 Intake and Output for Last 24 Hours 02/03/21 02/04/21 02/05/21 23:59 23:59 23:59 Intake Total 720 / 720 700 / 700 850 / 850 Output Total 600 / 600 Balance 720 / 720 100 / 100 850 / 850 Laboratory Results 02/04/21 21:24: POC Glucose 235 H 02/05/21 06:09: POC Glucose 137 H 02/05/21 11:03: POC Glucose 158 H 02/05/21 16:36: POC Glucose 211 H 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) Other specified peripheral vascular diseases (Chronic) Edema, lower extremity (Chronic) Allergies aspirin [ASA] Allergy (Verified 01/04/21 20:25) Rash doxycycline Allergy (Verified 01/04/21 20:25) Rash levofloxacin [From Levaquin] Allergy (Verified 01/04/21 20:25) Diarrhea Penicillins Allergy (Verified 01/04/21 20:25) Rash Sulfa (Sulfonamide Antibiotics) Allergy (Verified 01/04/21 20:25) Rash Home Medications: Ambulatory Orders Medication Instructions Recorded Allopurinol 300 mg PO DAILY 01/04/21 Amlodipine [Norvasc] 5 mg PO DAILY 01/04/21 Cyanocobalamin (Vitamin B-12) 1,000 mcg PO DAILY 01/04/21 [B-12] Docusate Sodium 100 mg PO BID 01/04/21 Fluoride (Sodium) [Prevident] 1 applicatio TOPICAL BID 01/04/21 Folic Acid 1 mg PO DAILY 01/04/21 Insulin Human 70/30 [Novolog Mix 75 units SC BIDCM 01/04/21 70-30 Flexpen Syrn] Magnesium Oxide 400 mg PO BID 01/04/21 Multivitamin with Minerals 1 ea PO DAILY 01/04/21 [Multiple Vitamin] Multivitamin/Iron/Folic Acid 1 tab PO DAILY 01/04/21 [Centrum Adults Tablet] Pregabalin [Lyrica] 100 mg PO BID 01/04/21 Simvastatin 20 mg PO QHS 01/04/21 Tamsulosin HCl 0.4 mg PO DAILY 01/04/21 Vancomycin IV [Vancomycin] 1 gm IV Q24H 01/04/21 Acetaminophen Extra Strength 500 mg PO Q6H PRN PRN 01/12/21 Insulin Glargine 35 units SQ QHS 01/12/21 Insulin Lispro Kwikpen U-100 10 units SQ TIDCM 01/12/21 Iron Polysaccharide Complex 150 mg PO DAILY 01/12/21 Ivig 50 g IV UD 01/12/21 Rasta - ORANGE FLAVOR 1 packet PO DAILY 01/12/21 Lactobacillus Acidophilus 1 tab PO DAILY 01/12/21 Mupirocin 1 applicatio TOPICAL TID 01/12/21 Oxycodone 5 mg PO Q6H PRN PRN 01/12/21 Tadalafil 10 mg PO DAILY PRN PRN 01/12/21 Surgical History: noncontributory Psychiatric History: No pertinent psych hx Lives: Alone Smoking Status: Former smoker Tobacco Use: Cigarettes, Cigars Alcohol: None Drugs: None - *Family History Maternal History Items: No pertinent history Paternal History Items: No pertinent history Capacity - Capacity Assessment Tool Can the patient make a choice & communicate that choice?: Yes Can the patient understand benefits, risks and alternatives?: Yes Can the patient make a logical, rational choice?: Yes Is the choice the patient makes consistent w/ their values?: Yes Is there an impending, emergent risk to the patient?: No Does the patient have an Advance Directive?: No Is there a Surrogate Available?: Yes i.e. HCPOA: Yes i.e. close relative (spouse, child, parent, sibling)?: Yes Review of Systems Constitutional: Denies: Chills, Fever, Weight Change HEENT: Denies: Head Aches, Sinus Congestion, Sinus Drainage Cardiovascular: Denies: Chest Pain, Palpitations Respiratory: Denies: Cough, Shortness of breath at rest, Sputum production Gastrointestinal: Denies: Abdominal Pain, Nausea, Vomiting Genitourinary: Denies: Dysuria Musculoskeletal: Denies: Joint Pain, Joint Tenderness Skin: Reports: Rash. Denies: Wounds Neurological: Denies: Numbness, Tingling, Focal weakness Psychiatric: Denies: Anxiety, Depression, Homicidal Ideations, Suicidal Ideations Hematologic/ Lymphatic: Denies: Easy Bruising, Easy Bleeding Patient Problems: Active and Suspected Problems Debility (Acute) Septic shock (Acute) - Physical Exam Vitals/I&O's: Vital Signs Temp Pulse Resp BP Pulse Ox 97.1 F L 75 20 H 141/58 H 95 02/05/21 13:27 02/05/21 13:27 02/05/21 13:27 02/05/21 13:27 02/05/21 13:27 Oxygen Delivery Method Room Air Weight: 131.814 kg Body Mass Index (BMI) 42.0 Intake and Output for Last 24 Hours 02/03/21 02/04/21 02/05/21 23:59 23:59 23:59 Intake Total 720 / 720 700 / 700 850 / 850 Output Total 600 / 600 Balance 720 / 720 100 / 100 850 / 850 General: Alert, Oriented x3, Cooperative HEENT: Atraumatic, PERRLA, EOMI, Normocephalic Neck: Supple, No JVD, Negative Carotid Bruits Lungs: Clear to auscultation, Normal air movement Cardiovascular: Regular rate, No murmurs Abdomen: Bowel Sounds Present, Soft, Non Tender Extremities: No edema, Capillary Refill Less than 3 Seconds Skin: No breakdown, Rash Present - Diffuse erythematous papular rash over entire body. Musculoskeletal: No Tenderness to Palpation of Joints or Extremities Neurological: Cranial nerves II-XII grossly intact Psych/Mental Status: Normal Affect, Appropriate Laboratory Results 02/04/21 21:24: POC Glucose 235 H 02/05/21 06:09: POC Glucose 137 H 02/05/21 11:03: POC Glucose 158 H 02/05/21 16:36: POC Glucose 211 H Current Medications Acetaminophen (Acetaminophen 500 Mg Tablet) 1,000 mg PO Q6H PRN PRN PRN Reason: Pain Score 1-3 Last Admin: 01/21/21 20:30 Dose: 1,000 mg Documented by: Amlodipine Besylate (Amlodipine 5 Mg Tablet) 5 mg PO DAILY DAISY Last Admin: 02/05/21 05:01 Dose: 5 mg Documented by: Atorvastatin Calcium (Atorvastatin Calcium 10 Mg Tablet) 10 mg PO QHS DAISY Last Admin: 02/04/21 21:59 Dose: 10 mg Documented by: Bisacodyl (Bisacodyl 10 Mg Suppository) 10 mg RC DAILY PRN PRN Reason: Constipation Calamine/Phenol (Menthol/Lanolin/Calamine/Znox 113 Gm Tube) 1 applic TOPICAL 06,22 DAISY; Protocol Collagenase (Collagenase 30gm Tube) 1 applic TOPICAL DAILY@1000 DAISY; Protocol Last Admin: 02/05/21 14:46 Dose: 1 applicatio Documented by: Emollient Ointment (Emollient Combination No.72 500 Ml Lotion) 1 applic TOPICAL 0600,2200 DAISY; Protocol Last Admin: 02/05/21 04:59 Dose: 1 applicatio Documented by: Glucagon (Glucagon 1 Mg/Ml Syringe) 1 mg SC X1 PRN PRN Reason: HYPOGLYCEMIA Heparin Sodium (Beef Lung) (Heparin Pf Lock 10 Units/Ml 50 Units/5 Ml Syringe) 50 units IV UD PRN PRN Reason: PICC Line Heparin Flush Last Admin: 01/27/21 16:29 Dose: 50 units Documented by: Hydrocortisone (Hydrocortisone 2.5% Crm) 1 applic TOPICAL BID PRN PRN; Protocol PRN Reason: RASH/TOPICAL IRRITATION Last Admin: 02/01/21 11:36 Dose: 1 applic Documented by: Sodium Chloride () 250 mls @ 15 mls/hr IV .[id number] PRN PRN Reason: Saline Flush Last Infusion: 01/31/21 10:32 Dose: Infused Documented by: Sodium Chloride () 250 mls @ 15 mls/hr IV .[id number] PRN PRN Reason: Additional IVPB Infusion Last Infusion: 02/03/21 14:42 Dose: Infused Documented by: Insulin Glargine (Insulin Glargine 100 Units/Ml Pen) 100 units SC QHS [facility] Last Admin: 02/04/21 22:00 Dose: 100 units Documented by: Insulin Human Lispro (Insulin Lispro 100 Unit/Ml Insuln.Pen) 10 unit SC TIDCM [facility] Last Admin: 02/05/21 17:45 Dose: 10 u Documented by: L-Arginine/L-Glutamine/Calcium HMB (Rasta (Unflavored) Packet) 1 packet PO DAILYCM [facility] Last Admin: 02/05/21 08:22 Dose: 1 packet Documented by: Lactobacillus Acidophilus (Lactobacillus Acidophilus) 1 tablet PO DAILY [facility] Last Admin: 02/05/21 05:00 Dose: 1 tablet Documented by: Linezolid (Linezolid 600 Mg Tablet) 600 mg PO BID [facility] Last Admin: 02/05/21 17:47 Dose: 600 mg Documented by: Magnesium Chloride (Magnesium Chloride 64 Mg Delay Rel.Tablet) 128 mg PO BID [facility] Last Admin: 02/05/21 17:47 Dose: 128 mg Documented by: Magnesium Hydroxide (Magnesium Hydroxide 30 Ml Udc) 30 ml PO DAILY PRN PRN Reason: Constipation Methylprednisolone (Methylprednisolone Dosepak 4 Mg Box) 4 mg PO 0800,1200,2200 [facility]; Taper Stop: 02/07/21 08:59 Last Admin: 02/05/21 11:46 Dose: 4 mg Documented by: Nystatin (Nystatin Powder 15gm Bottle) 1 applic TOPICAL BID [facility]; Protocol Last Admin: 02/05/21 17:46 Dose: 1 applicatio Documented by: Oxycodone HCl (Oxycodone 5 Mg Tablet) 5 mg PO Q4H PRN PRN PRN Reason: Pain Score 4-10 Polyethylene Glycol (Polyethylene Glycol 3350 17 Gm Packet) 17 gm PO DAILY [facility] Last Admin: 02/05/21 05:02 Dose: Not Given Documented by: Pregabalin (Pregabalin 50 Mg Capsule) 100 mg PO BID [facility] Last Admin: 02/05/21 17:50 Dose: 100 mg Documented by: Senna/Docusate Sodium (Senna/Docusate Sodium 1 Tablet) 1 tablet PO BID [facility] Last Admin: 02/05/21 17:47 Dose: Not Given Documented by: Sodium Chloride (0.9% Saline Lock 10 Ml Syringe) 10 - 40 ml IV UD PRN PRN Reason: Open End PICC Flush Last Admin: 02/05/21 17:51 Dose: 10 ml Documented by: Sodium Chloride (0.9 % Nacl (Sterile) Posiflush 10 Ml) 10 - 40 ml IV UD PRN PRN Reason: Port access or dressing change Last Admin: 01/28/21 07:31 Dose: 20 ml Documented by: Tamsulosin HCl (Tamsulosin Hcl 0.4 Mg Capsule) 0.4 mg PO DAILY@1730 [facility] Last Admin: 02/05/21 17:47 Dose: 0.4 mg Documented by: Assessment/Plan All Active Problems Blister of right leg (Acute) Debility (Acute) Septic shock (Acute) 80 year old male with below past medical history significant for osteomyelitis right index finger, chronic left heel ulcer, hospitalized for septic shock, admitted to TCU with debility, here for rehabilitation, strengthening, intravenous antibiotics, wound care, prior to discharge home alone. Debility - PT/OT. Pain - Tylenol 1000MG Q6H PRN pain (1-3), Oxycodone 5MG Q4H PRN pain (4-10). Bowel - Miralax 17GM daily, Senna/colace 1 tablet BID, MOM 30ML daily PRN PRN, Dulcolax 10MG [place] daily PRN. Adult immunization - Administer Prevnar 13, Pneumovax 23, Fluzone, COVID19 vaccine as appropriate. DVT prophylaxis - Hold, Anemia. Hypertension - Amlodipine 5MG daily. Diabetes Mellitus II - Lantus 100 units QHS, Humalog 10 units TIDAC, Glucagon 1MG SC x 1 dose PRN. Hypomagnesemia - Magnesium 128MG BID. Diabetic polyneuropathy - Lyrica 100MG BID. Hyperlipidemia - Atorvastatin 10MG QHS. BPH - Tamsulosin 0.4MG daily. Osteomyelitis right index finger - Linezolid 600MG BID, Lactobacillus 1 tablet daily, Appreciate Dr. Carlson. Left heel ulcer - Collagenase topical daily, Rasta 1 packet daily, Appreciate Dr. Woodard. Skin irritation - Eucerin topical BID, Calmoseptine topical BID. Tinea Corporis - Nystatin powder topical BID. Rash - Medrol dose pack thru 02/07/2021, Hytone 2.5% cream BID PRN.
--- NOTE | 2021-02-05 21:35 | NURSING ---
Daughter, Shahida, calls requesting an update. Has additional questions regarding options for dc planning. This nurse unable to answer all questions due to unknown date of insurance approval and what referrals have been placed for community resources. Confirmed an email was received per Sarah earlier today but did not discuss specifics. Verbalizes concerns w/ multiple medication changes while in the hospital and questions how many of these medications could have resulted in development of the generalized rash. Informed Shahida, rash has improved per report from dayshift earlier this evening. Questions if there is a certain time she should call for an update. Informed Shahida she may call anytime for any questions or concerns.
[2021-02-05 22:21] LABS: Bedside Glucose 212 mg/dL (70-110)
[2021-02-05] MEDS: Atorvastatin Calcium 10 MG Tablet PO (23:04)
[2021-02-05] MEDS: Menthol/Lanolin/Calamine/Znox 113 GM Tube 1 APPLIC TOPICAL (23:06)
--- NOTE | 2021-02-05 23:20 | NURSING ---
In pt's room administering scheduled dose of Lantus. Offered HS snack and pt decline. Has fluids within reach on overbed table.
--- NOTE | 2021-02-05 23:30 | NURSING ---
Pt verbalizes some concerns w/ varying doses of insulin. Instructed due to elevated blood sugars while on Medrol dose pack and additional doses of Humalog to compensate for hyperglycemia, long-acting insulin dose increased again. Takes Humalog 70/30 at home. Did not verify dose. Does not check blood sugars at home but reports having a meter that functions. Notes his sister is a nurse and is en route to [place] from [place]. Unsure of date of arrival. He notes she will further question med reconciliation prior to dc.
[2021-02-06 05:00] VITALS: BP 133/63; PULSE 72; RESP 16; TEMP 36.8; O2SAT 98
[2021-02-06 06:26] LABS: Bedside Glucose 78 mg/dL (70-110)
[2021-02-06] MEDS: Pregabalin 50 MG Capsule 100 MG PO ×2 (06:32→17:40)
[2021-02-06] MEDS: Linezolid 600 MG Tablet PO ×2 (06:34→17:41)
[2021-02-06] MEDS: Magnesium Chloride 64 MG Delay Rel.Tablet 128 MG PO ×2 (06:34→17:41)
[2021-02-06] MEDS: amLODIPine 5 MG Tablet PO (06:35)
[2021-02-06] MEDS: Nystatin Powder 15gm Bottle 1 APPLIC TOPICAL ×2 (06:36→17:42)
[2021-02-06] MEDS: Menthol/Lanolin/Calamine/Znox 113 GM Tube 1 APPLIC TOPICAL ×2 (06:36→21:08)
--- NOTE | 2021-02-06 06:50 | NURSING ---
Pt expresses frustration w/ high dose of insulin administered last night and that regimen is not equivalent to dosing at home. Informed pt this nurse will morse to leave a note for Dr. Whelan to address.
[2021-02-06] MEDS: Juven (unflavored) Packet 1 PACKET PO (08:38)
[2021-02-06] MEDS: MethylPREDNISolone DosePak 4 MG BOX PO ×2 (08:38→21:02)
[2021-02-06 10:00] VITALS: RESP 18
[2021-02-06 11:06] LABS: Bedside Glucose 96 mg/dL (70-110)
[2021-02-06] MEDS: Collagenase 30gm Tube 1 APPLIC TOPICAL (11:31)
[2021-02-06 14:18] VITALS: BP 141/62; PULSE 79; RESP 18; TEMP 36.3; O2SAT 100
--- NOTE | 2021-02-06 14:46 | CASEMGMT ---
Social Work Email correspondence with dtr. Answered dtr's questions about ramp, wound dressing teaching, skilled and nonskilled HHC, etc. Pt is getting 2nd COVID vaccine 02/15 - dtr and pt inquired about DC 02/19. IDT agreeable. Pt's aunt will be staying with pt for 4 weeks at [place] and able to learn wound changes. Nursing notified to contact aunt to schedule training and to educate pt on new insulin and BP meds, per dtr request. Pt requesting [facility]. Will make referral for PT/OT/SN/MARCELINO[place] [facility] [place] SW to continue to follow. Sarah Yoder, VP CUSTOMER DEVELOPMENT RETAIL FIELD REPRESENTATIVE
[2021-02-06 16:36] LABS: Bedside Glucose 70 mg/dL (70-110)
[2021-02-06] MEDS: Tamsulosin HCl 0.4 MG Capsule PO (17:40)
[2021-02-06] MEDS: Atorvastatin Calcium 10 MG Tablet PO (21:02)
[2021-02-06 22:01] LABS: Bedside Glucose 203 mg/dL (70-110)
[2021-02-07 05:00] VITALS: BP 131/62; PULSE 66; RESP 16; TEMP 36.6; O2SAT 97
[2021-02-07] MEDS: amLODIPine 5 MG Tablet PO (05:44)
[2021-02-07] MEDS: Magnesium Chloride 64 MG Delay Rel.Tablet 128 MG PO ×2 (05:44→16:51)
[2021-02-07] MEDS: Pregabalin 50 MG Capsule 100 MG PO ×2 (05:44→16:50)
[2021-02-07] MEDS: Linezolid 600 MG Tablet PO ×2 (05:44→16:52)
[2021-02-07] MEDS: Menthol/Lanolin/Calamine/Znox 113 GM Tube 1 APPLIC TOPICAL ×2 (05:48→21:13)
[2021-02-07] MEDS: Nystatin Powder 15gm Bottle 1 APPLIC TOPICAL ×2 (05:48→16:56)
[2021-02-07 06:26] LABS: Bedside Glucose 106 mg/dL (70-110)
[2021-02-07] MEDS: Insulin Lispro 100 UNIT/ML INSULN.PEN SC ×3 (08:26→17:45)
[2021-02-07] MEDS: MethylPREDNISolone DosePak 4 MG BOX PO (08:26)
[2021-02-07] MEDS: Juven (unflavored) Packet 1 PACKET PO (08:27)
--- NOTE | 2021-02-07 10:28 | CASEMGMT ---
Addendum entered by Sarah oYder 02/08/21 12:25: [facility] can accept pt. Spoke with pt and he remains agreeable. Pt has transport and requesting DC 02/20. IDT agreeable. [facility] to provide wound care supplies. DC information faxed to [place]. Plan: DC home 02/20 with [facility] PT/OT/SN/MARCELINO. No DME needs. Addendum entered by Sarah Yoder 02/07/21 16:20: [facility] cannot accept due to staffing. Pt revisited list and requested referral to [facility] then [facility]. Referral made to [facility]. Will continue to follow. Original Note: Social Work Followed up with pt on DC. Pt stated he may not have a ride until 02/20 - will notify SW once known. Referral made to [facility]. Pt stated his dtr bought him a w/c - no referral [place] [facility] [place]. Will continue to follow. BALA CoreaW
[2021-02-07 11:21] LABS: Bedside Glucose 147 mg/dL (70-110)
[2021-02-07] MEDS: 0.9% Saline Lock 10 ML Syringe IV (11:32)
[2021-02-07 13:48] VITALS: BP 154/82; PULSE 84; RESP 18; TEMP 36.2; O2SAT 98
--- NOTE | 2021-02-07 14:39 | NURSING ---
CALLED R' SISTER, BINH TO SCHEDULE A TIME FOR TEACHING ON DRESSING CHANGES. LEFT ANDIE.
--- NOTE | 2021-02-07 16:07 | NURSING ---
BINH CALLED BACK. STATED SHE IN IN [place] UNTIL SOMETIME NEXT WEEK. SHE WILL LET STAFF KNOW WHEN SHE RETURNS NEXT WEEK IN ORDER TO SCHEDULE TEACHING FOR DRESSING CHANGES.
[2021-02-07 16:11] LABS: Bedside Glucose 286 mg/dL (70-110)
[2021-02-07] MEDS: Tamsulosin HCl 0.4 MG Capsule PO (16:51)
--- NOTE | 2021-02-07 16:59 | NURSING ---
RIGHT INDEX FINGER SOAKED IN WARM, SOAPY WATER X 10 MINUTES. PATTED DRY.
[2021-02-07] MEDS: Collagenase 30gm Tube 1 APPLIC TOPICAL (21:13)
[2021-02-07] MEDS: Atorvastatin Calcium 10 MG Tablet PO (21:14)
[2021-02-07 21:15] VITALS: RESP 18
[2021-02-07 21:21] LABS: Bedside Glucose 326 mg/dL (70-110)
[2021-02-08 05:45] VITALS: BP 129/61; PULSE 68; RESP 18; TEMP 36.6; O2SAT 99
[2021-02-08] MEDS: Menthol/Lanolin/Calamine/Znox 113 GM Tube 1 APPLIC TOPICAL ×2 (05:51→22:24)
[2021-02-08] MEDS: Nystatin Powder 15gm Bottle 1 APPLIC TOPICAL ×2 (05:51→17:32)
[2021-02-08] MEDS: Pregabalin 50 MG Capsule 100 MG PO ×2 (06:01→17:29)
[2021-02-08] MEDS: 0.9% Saline Lock 10 ML Syringe IV ×2 (06:01→17:32)
[2021-02-08] MEDS: Magnesium Chloride 64 MG Delay Rel.Tablet 128 MG PO ×2 (06:01→17:30)
[2021-02-08] MEDS: amLODIPine 5 MG Tablet PO (06:02)
[2021-02-08] MEDS: Linezolid 600 MG Tablet PO ×2 (06:17→17:30)
[2021-02-08 06:22] LABS: Albumin, Serum 2.4 g/dL (3.2-5.0); BUN 97 mg/dL (7-18); BUN/Creat Ratio 43.7 RATIO (10-20); Calcium,Total 8.1 mg/dL (8.5-10.1); Chloride 113 mmol/L (98-107); Creatinine, Serum 2.22 mg/dL (0.70-1.30); EST Glomerular Filtration Rate 31 mL/min (>60); Est Glom Filt Rate - Afr Amer 37 mL/min (>60); Estimated Creatinine Clearance 29.21 ml/min; Glucose 221 mg/dL (74-106); Sodium Level 139 mmol/L (136-145)
[2021-02-08 06:25] LABS: Bedside Glucose 225 mg/dL (70-110)
[2021-02-08] MEDS: Juven (unflavored) Packet 1 PACKET PO (08:15)
[2021-02-08] MEDS: Insulin Lispro 100 UNIT/ML INSULN.PEN SC ×3 (08:15→17:30)
[2021-02-08 08:27] LABS: PTHIN 137.7 pg/mL (18.4-80.1)
[2021-02-08 11:06] LABS: Bedside Glucose 166 mg/dL (70-110)
[2021-02-08] MEDS: Collagenase 30gm Tube 1 APPLIC TOPICAL (14:30)
[2021-02-08 14:31] VITALS: BP 149/56; PULSE 73; RESP 16; TEMP 36.3; O2SAT 97
[2021-02-08 14:57] LABS: Protein, Urine (Random) 19.9 mg/dL (<11.9); Protein:Creat Ratio 378 mg/g CRE (0-200)
--- NOTE | 2021-02-08 15:02 | CHAPLAIN ---
Type of Pastoral Visit ___ Initial Visit _x__ Follow-up Visit ___ On-call Visit ___ General Patient Visit ___ Spiritual Assessment ___ Family Conference ___ Bereavement ___ Rapid Response ___ Code Blue ___ Other (describe below) Pastoral Care Referral From _x__ Patient ___ Family ___ Nurse ___ Physician ___ Chief Operator ___ Credit Negotiator ___ Other (describe below) Sacrament/Intervention _x__ Active listening ___ Anointing ___ Yazdanism ___ Bereavement ___ Communion ___ Verena exploration ___ ___ Life review ___ Prayer ___ Reconciliation ___ Sacrament of Sick ___ Supportive presence ___ Wedding ___ Other (describe below) Pastoral Comments
[2021-02-08 16:36] LABS: Bedside Glucose 188 mg/dL (70-110)
[2021-02-08] MEDS: Tamsulosin HCl 0.4 MG Capsule PO (17:30)
--- NOTE | 2021-02-08 19:31 | DCINST_ITS ---
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) Ulcer of left heel (Chronic) Gout (Chronic) Hypertension (Chronic) Vitamin B12 deficiency (Chronic) Folate deficiency (Chronic) Diabetes mellitus (Chronic) Hypomagnesemia (Chronic) Diabetic polyneuropathy (Chronic) Hyperlipidemia (Chronic) Benign prostatic hyperplasia (Chronic) Chronic kidney disease (Chronic) Chronic inflammatory demyelinating polyneuritis (Chronic) Septic shock (Acute) You will use the following diet at home:: No restrictions, Regular Your food should be the consistency of: Regular Your liquids should be the consistency of: Regular/Thin Discharge Activity: Return to Normal Activity, May Shower, Use Walker Weight Bearing Status: Weight bearing as tolerated Call your doctor if you observe: Fever of 101 or Higher, Inability to urinate, Inability to have a bowel movement, Shortness of breath, Chest pain, Uncontrolled pain Allergies/Adverse Reactions: Allergies aspirin [ASA] Allergy (Verified 01/04/21 20:25) Rash doxycycline Allergy (Verified 01/04/21 20:25) Rash levofloxacin [From Levaquin] Allergy (Verified 01/04/21 20:25) Diarrhea Penicillins Allergy (Verified 01/04/21 20:25) Rash Sulfa (Sulfonamide Antibiotics) Allergy (Verified 01/04/21 20:25) Rash Medications to take at Discharge Amlodipine [Norvasc] 5 mg PO DAILY 01/04/21 Magnesium Oxide 400 mg PO BID 01/04/21 Pregabalin [Lyrica] 100 mg PO BID 01/04/21 Simvastatin 20 mg PO QHS 01/04/21 Tamsulosin HCl 0.4 mg PO DAILY 01/04/21 Insulin Glargine 35 units SQ QHS 01/12/21 Insulin Lispro Kwikpen U-100 10 units SQ TIDCM 01/12/21 Lactobacillus Acidophilus 1 tab PO DAILY 01/12/21 Acetaminophen [Tylenol] 1,000 mg PO Q6H PRN PRN tablet 02/08/21 Collagenase [Santyl] 1 applic TOPICAL DAILY@1000 #1 tube 02/08/21 Emollient Combination No.72 [Eucerin Intensive Repair] 1 applic TOPICAL 0600,2 200 lotion 02/08/21 Rasta - ORANGE FLAVOR 1 packet PO DAILY #30 02/08/21 Menthol/Lanolin/Calamine/Znox [Calmoseptine Ointment] 1 applic TOPICAL 06,22 tube 02/08/21 Nystatin Powder [Mycostatin Powder] 1 applic TOPICAL BID bottle 02/08/21 The following prescriptions were given: Rasta - ORANGE FLAVOR 1 packet PO DAILY #30 Prescription Printed Collagenase [Santyl] 1 applic TOPICAL DAILY@1000 #1 tube Transmission Status: Pending to [id number] Primary Care Physician: Surinder Del Rosario [Other] Please follow up with your Primary Care Physician in: 1 week. Test Results: Test results from this visit will be discussed in further detail at your follow- up appointment, if applicable. Please Follow Up With: DR NICOLE When: 02/14/21 Proposed Discharge Date: 02/20/21
--- NOTE | 2021-02-08 19:33 | DS.PCM_ITS ---
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) Ulcer of left heel (Chronic) Gout (Chronic) Hypertension (Chronic) Vitamin B12 deficiency (Chronic) Folate deficiency (Chronic) Diabetes mellitus (Chronic) Hypomagnesemia (Chronic) Diabetic polyneuropathy (Chronic) Hyperlipidemia (Chronic) Benign prostatic hyperplasia (Chronic) Chronic kidney disease (Chronic) Chronic inflammatory demyelinating polyneuritis (Chronic) Ulcer of left foot with fat layer exposed (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) Other specified peripheral vascular diseases (Chronic) Edema, lower extremity (Chronic) Hospital Course and Treatment Imaging Results: 01/15/21 16:12 Diet: Cardiac: Calorie-Controlled Food consistency:: Regular Liquid Consistency:: Regular/Thin Dietary Modifications:: Sodium Restricted Is pt able to select menu?: Yes How many daily calories?: 1999 calorie Labs (Last 48 Hours) 02/06/21 02/07/21 02/07/21 20:58 06:16 11:10 Sodium Potassium Chloride Carbon Dioxide BUN Creatinine Estim Creat Clear Calc Est GFR (MDRD) Af Amer Est GFR (MDRD) Non-Af BUN/Creatinine Ratio Glucose Calcium Phosphorus Albumin PTH Intact U Random Total Protein Urine Creatinine Protein/Creatinin Ratio POC Glucose 203 H 106 147 H 02/07/21 02/07/21 02/08/21 16:06 21:08 05:38 Sodium 139 Potassium 5.0 Chloride 113 H Carbon Dioxide 20.0 L BUN 97 H Creatinine 2.22 H Estim Creat Clear Calc 29.21 Est GFR (MDRD) Af Amer 37 L Est GFR (MDRD) Non-Af 31 L BUN/Creatinine Ratio 43.7 H Glucose 221 H Calcium 8.1 L Phosphorus 4.0 Albumin 2.4 L PTH Intact U Random Total Protein Urine Creatinine Protein/Creatinin Ratio POC Glucose 286 H 326 H 02/08/21 02/08/21 02/08/21 05:38 06:18 10:57 Sodium Potassium Chloride Carbon Dioxide BUN Creatinine Estim Creat Clear Calc Est GFR (MDRD) Af Amer Est GFR (MDRD) Non-Af BUN/Creatinine Ratio Glucose Calcium Phosphorus Albumin PTH Intact 137.7 H U Random Total Protein Urine Creatinine Protein/Creatinin Ratio POC Glucose 225 H 166 H 02/08/21 02/08/21 14:40 16:16 Sodium Potassium Chloride Carbon Dioxide BUN Creatinine Estim Creat Clear Calc Est GFR (MDRD) Af Amer Est GFR (MDRD) Non-Af BUN/Creatinine Ratio Glucose Calcium Phosphorus Albumin PTH Intact U Random Total Protein 19.9 H Urine Creatinine 52.60 Protein/Creatinin Ratio 378 H POC Glucose 188 H Consultations 01/13/21 02:34 Consult: Onc/Wound/acoustical carpenter Routine Comment: Operations: None Procedures: None Summary of Care Provided: The patient is a 80 year old Male with below past medical history significant for osteomyelitis right index finger, chronic left heel ulcer, hospitalized for septic shock, admitted to TCU with debility, here for rehabilitation, strengthening, intravenous antibiotics, wound care, prior to discharge home alone. Discharge home alone, [facility] PT/OT/SN/MARCELINO, No durable medical equipment needs. Patient Problems: Active and Suspected Problems Debility (Acute) Septic shock (Acute) - Physical Exam Vitals/I&O's: Vital Signs Temp Pulse Resp BP Pulse Ox 97.4 F L 73 16 149/56 H 97 02/08/21 14:31 02/08/21 14:31 02/08/21 14:31 02/08/21 14:31 02/08/21 14:31 Oxygen Delivery Method Room Air Weight: 139.298 kg Body Mass Index (BMI) 42.0 Intake and Output for Last 24 Hours 02/06/21 02/07/21 02/08/21 23:59 23:59 23:59 Intake Total 600 / 600 760 / 760 600 / 600 Balance 600 / 600 760 / 760 600 / 600 Laboratory Results 02/07/21 21:08: POC Glucose 326 H 02/08/21 05:38: Sodium 139, Potassium 5.0, Chloride 113 H, Carbon Dioxide 20.0 L , BUN 97 H, Creatinine 2.22 H, Estim Creat Clear Calc 29.21, Est GFR (MDRD) Af Amer 37 L, Est GFR (MDRD) Non-Af 31 L, BUN/Creatinine Ratio 43.7 H, Glucose 221 H, Calcium 8.1 L, Phosphorus 4.0, Albumin 2.4 L 02/08/21 05:38: PTH Intact 137.7 H 02/08/21 06:18: POC Glucose 225 H 02/08/21 10:57: POC Glucose 166 H 02/08/21 14:40: U Random Total Protein 19.9 H, Urine Creatinine 52.60, Protein/Creatinin Ratio 378 H 02/08/21 16:16: POC Glucose 188 H Current Medications Acetaminophen (Acetaminophen 500 Mg Tablet) 1,000 mg PO Q6H PRN PRN PRN Reason: Pain Score 1-3 Last Admin: 01/21/21 20:30 Dose: 1,000 mg Documented by: Amlodipine Besylate (Amlodipine 5 Mg Tablet) 5 mg PO DAILY DAISY Last Admin: 02/08/21 06:02 Dose: 5 mg Documented by: Atorvastatin Calcium (Atorvastatin Calcium 10 Mg Tablet) 10 mg PO QHS DAISY Last Admin: 02/07/21 21:14 Dose: 10 mg Documented by: Bisacodyl (Bisacodyl 10 Mg Suppository) 10 mg RC DAILY PRN PRN Reason: Constipation Calamine/Phenol (Menthol/Lanolin/Calamine/Znox 113 Gm Tube) 1 applic TOPICAL 06,22 DAISY; Protocol Last Admin: 02/08/21 05:51 Dose: 1 applicatio Documented by: Collagenase (Collagenase 30gm Tube) 1 applic TOPICAL DAILY@1000 DAISY; Protocol Last Admin: 02/08/21 14:30 Dose: 1 applicatio Documented by: Emollient Ointment (Emollient Combination No.72 500 Ml Lotion) 1 applic TOPICAL 0600,2200 DAISY; Protocol Last Admin: 02/08/21 05:52 Dose: 1 applicatio Documented by: Glucagon (Glucagon 1 Mg/Ml Syringe) 1 mg SC X1 PRN PRN Reason: HYPOGLYCEMIA Heparin Sodium (Beef Lung) (Heparin Pf Lock 10 Units/Ml 50 Units/5 Ml Syringe) 50 units IV UD PRN PRN Reason: PICC Line Heparin Flush Last Admin: 01/27/21 16:29 Dose: 50 units Documented by: Hydrocortisone (Hydrocortisone 2.5% Crm) 1 applic TOPICAL BID PRN PRN; Protocol PRN Reason: RASH/TOPICAL IRRITATION Last Admin: 02/01/21 11:36 Dose: 1 applic Documented by: Sodium Chloride () 250 mls @ 15 mls/hr IV .[id number] PRN PRN Reason: Saline Flush Last Infusion: 01/31/21 10:32 Dose: Infused Documented by: Sodium Chloride () 250 mls @ 15 mls/hr IV .[id number] PRN PRN Reason: Additional IVPB Infusion Last Infusion: 02/03/21 14:42 Dose: Infused Documented by: Insulin Glargine (Insulin Glargine 100 Units/Ml Pen) 35 units SC QHS [facility] Last Admin: 02/07/21 21:14 Dose: 35 u Documented by: Insulin Human Lispro (Insulin Lispro 100 Unit/Ml Insuln.Pen) 5 unit SC TIDCM [facility] Last Admin: 02/08/21 17:30 Dose: 5 units Documented by: L-Arginine/L-Glutamine/Calcium HMB ([facility] ([facility]flav[facility]) [facility]) [facility] Last Admin: 02/08/21 08:15 Dose: 1 packet Documented by: Lactobacillus Acidophilus (Lactobacillus Acidophilus) 1 tablet PO DAILY [facility] Last Admin: 02/08/21 06:02 Dose: 1 tablet Documented by: Linezolid (Linezolid 600 Mg Tablet) 600 mg PO BID [facility] Last Admin: 02/08/21 17:30 Dose: 600 mg Documented by: Magnesium Chloride (Magnesium Chloride 64 Mg Delay Rel.Tablet) 128 mg PO BID [facility] Last Admin: 02/08/21 17:30 Dose: 128 mg Documented by: Magnesium Hydroxide (Magnesium Hydroxide 30 Ml Udc) 30 ml PO DAILY PRN PRN Reason: Constipation Nystatin (Nystatin Powder 15gm Bottle) 1 applic TOPICAL BID [facility]; Protocol Last Admin: 02/08/21 17:32 Dose: 1 applicatio Documented by: Oxycodone HCl (Oxycodone 5 Mg Tablet) 5 mg PO Q4H PRN PRN PRN Reason: Pain Score 4-10 Polyethylene Glycol (Polyethylene Glycol 3350 17 Gm Packet) 17 gm PO DAILY [facility] Last Admin: 02/08/21 05:50 Dose: Not Given Documented by: Pregabalin (Pregabalin 50 Mg Capsule) 100 mg PO BID [facility] Last Admin: 02/08/21 17:29 Dose: 100 mg Documented by: Senna/Docusate Sodium (Senna/Docusate Sodium 1 Tablet) 1 tablet PO BID [facility] Last Admin: 02/08/21 17:30 Dose: Not Given Documented by: Sodium Chloride (0.9% Saline Lock 10 Ml Syringe) 10 - 40 ml IV UD PRN PRN Reason: Open End PICC Flush Last Admin: 02/08/21 17:32 Dose: 20 ml Documented by: Sodium Chloride (0.9 % Nacl (Sterile) Posiflush 10 Ml) 10 - 40 ml IV UD PRN PRN Reason: Port access or dressing change Last Admin: 01/28/21 07:31 Dose: 20 ml Documented by: Tamsulosin HCl (Tamsulosin Hcl 0.4 Mg Capsule) 0.4 mg PO DAILY@1730 [facility] Last Admin: 02/08/21 17:30 Dose: 0.4 mg Documented by: Discharge Diet: No Restrictions Discharge Activity: Return to Normal Activity, May Shower, Use Walker Weight Bearing Status: Weight bearing as tolerated Call your doctor if you observe: Fever of 101 or Higher, Inability to urinate, Inability to have a bowel movement, Shortness of breath, Chest pain, Uncontrolled pain Home Medications: Medications to take at Discharge Amlodipine [Norvasc] 5 mg PO DAILY 01/04/21 Magnesium Oxide 400 mg PO BID 01/04/21 Pregabalin [Lyrica] 100 mg PO BID 01/04/21 Simvastatin 20 mg PO QHS 01/04/21 Tamsulosin HCl 0.4 mg PO DAILY 01/04/21 Insulin Glargine 35 units SQ QHS 01/12/21 Insulin Lispro Kwikpen U-100 10 units SQ TIDCM 01/12/21 Lactobacillus Acidophilus 1 tab PO DAILY 01/12/21 Acetaminophen [Tylenol] 1,000 mg PO Q6H PRN PRN tablet 02/08/21 Collagenase [Santyl] 1 applic TOPICAL DAILY@1000 #1 tube 02/08/21 Emollient Combination No.72 [Eucerin Intensive Repair] 1 applic TOPICAL 0600,2200 lotion 02/08/21 Rasta - ORANGE FLAVOR 1 packet PO DAILY #30 02/08/21 Menthol/Lanolin/Calamine/Znox [Calmoseptine Ointment] 1 applic TOPICAL 06,22 tube 02/08/21 Nystatin Powder [Mycostatin Powder] 1 applic TOPICAL BID bottle 02/08/21 Following Prescriptions Were Given to Patient: Rasta - ORANGE FLAVOR 1 packet PO DAILY #30 Prescription Printed Collagenase [Santyl] 1 applic TOPICAL DAILY@1000 #1 tube Transmission Status: Pending to [id number] Primary Care Physician: Surinder Del Rosario [Other] Please follow up with your Primary Care Physician in: 1 week. Please Follow Up With: DR NICOLE When: 02/14/21 Disposition: Home with Home Health Minutes spent on discharge:: 35 Patient Condition:: Stable Medical Necessity - Tobacco Use Smoking Status: Former smoker Tobacco Use: Cigarettes, Cigars Meaningful Use Info Meaningful Use Diagnoses (Choose all that apply): None applicable
[2021-02-08 21:31] LABS: Bedside Glucose 225 mg/dL (70-110)
--- NOTE | 2021-02-08 22:20 | NURSING ---
Rt hand soaked in warm, soapy water per dr order. Pt dried hand independntly.
[2021-02-08] MEDS: Atorvastatin Calcium 10 MG Tablet PO (22:24)
[2021-02-09 05:00] VITALS: BP 134/66; PULSE 78; RESP 16; TEMP 36.9; O2SAT 98
[2021-02-09] MEDS: Pregabalin 50 MG Capsule 100 MG PO ×2 (05:59→17:50)
[2021-02-09] MEDS: Magnesium Chloride 64 MG Delay Rel.Tablet 128 MG PO ×2 (05:59→17:45)
[2021-02-09] MEDS: Linezolid 600 MG Tablet PO ×2 (06:00→17:46)
[2021-02-09] MEDS: amLODIPine 5 MG Tablet PO (06:00)
[2021-02-09] MEDS: Menthol/Lanolin/Calamine/Znox 113 GM Tube 1 APPLIC TOPICAL ×2 (06:02→22:37)
[2021-02-09] MEDS: Nystatin Powder 15gm Bottle 1 APPLIC TOPICAL ×2 (06:03→17:46)
[2021-02-09 06:26] LABS: Bedside Glucose 139 mg/dL (70-110)
--- NOTE | 2021-02-09 07:26 | PN_ITS ---
Patient Problems: Active and Suspected Problems Debility (Acute) Septic shock (Acute) Subjective: Patient seen and examined resting comfortably. Patient denies any new pedal complaints. Patient denies any nausea, fever, chills, chest pain, shortness of breath, cough, streaking, purulence, vomiting. - Physical Exam Vitals/I&O's: Vital Signs Temp Pulse Resp BP Pulse Ox 97.4 F L 73 16 149/56 H 97 02/08/21 14:31 02/08/21 14:31 02/08/21 14:31 02/08/21 14:31 02/08/21 14:31 Oxygen Delivery Method Room Air Weight: 139.298 kg Body Mass Index (BMI) 42.0 Intake and Output for Last 24 Hours 02/07/21 02/08/21 02/09/21 23:59 23:59 23:59 Intake Total 760 / 760 840 / 840 Output Total 600 / 600 Balance 760 / 760 840 / 840 -600 / -600 General: Alert, Oriented x3 HEENT: Atraumatic Abdomen: Obese Extremities: No clubbing, No cyanosis, Diminished Peripheral Pulses - Palpable left PT pulse, right PT pulse and bilateral DP pulses 1 out of 4, Edema - Bilateral lower extremities Skin: Ulcer/ Wound - Left heel. No malodor, erythema, purulence, probing to bone, streaking, or other signs of infection. Skin is atrophic and hairless. Granular fibrotic base, - - Right anterior dick has evidence of previous blister ulcerations. These have since scabbed over and are not weeping. Musculoskeletal: No Tenderness to Palpation of Joints or Extremities Neurological: - - Lack of epicritic sensation consistent with neuropathy Psych/Mental Status: Normal Affect, Appropriate Laboratory Results 02/08/21 05:38: PTH Intact 137.7 H 02/08/21 10:57: POC Glucose 166 H 02/08/21 14:40: U Random Total Protein 19.9 H, Urine Creatinine 52.60, Protein/ Creatinin Ratio 378 H 02/08/21 16:16: POC Glucose 188 H 02/08/21 21:27: POC Glucose 225 H 02/09/21 06:19: POC Glucose 139 H Current Medications Acetaminophen (Acetaminophen 500 Mg Tablet) 1,000 mg PO Q6H PRN PRN PRN Reason: Pain Score 1-3 Last Admin: 01/21/21 20:30 Dose: 1,000 mg Documented by: Amlodipine Besylate (Amlodipine 5 Mg Tablet) 5 mg PO DAILY [facility] Last Admin: 02/09/21 06:00 Dose: 5 mg Documented by: Atorvastatin Calcium (Atorvastatin Calcium 10 Mg Tablet) 10 mg PO QHS [facility] Last Admin: 02/08/21 22:24 Dose: 10 mg Documented by: Bisacodyl (Bisacodyl 10 Mg Suppository) 10 mg RC DAILY PRN PRN Reason: Constipation Calamine/Phenol (Menthol/Lanolin/Calamine/Znox 113 Gm Tube) 1 applic TOPICAL 06,22 DAISY; Protocol Last Admin: 02/09/21 06:02 Dose: 1 applicatio Documented by: Collagenase (Collagenase 30gm Tube) 1 applic TOPICAL DAILY@1000 DAISY; Protocol Last Admin: 02/08/21 14:30 Dose: 1 applicatio Documented by: Emollient Ointment (Emollient Combination No.72 500 Ml Lotion) 1 applic TOPICAL 0600,2200 DAISY; Protocol Last Admin: 02/09/21 06:02 Dose: 1 applicatio Documented by: Glucagon (Glucagon 1 Mg/Ml Syringe) 1 mg SC X1 PRN PRN Reason: HYPOGLYCEMIA Heparin Sodium (Beef Lung) (Heparin Pf Lock 10 Units/Ml 50 Units/5 Ml Syringe) 50 units IV UD PRN PRN Reason: PICC Line Heparin Flush Last Admin: 01/27/21 16:29 Dose: 50 units Documented by: Hydrocortisone (Hydrocortisone 2.5% Crm) 1 applic TOPICAL BID PRN PRN; Protocol PRN Reason: RASH/TOPICAL IRRITATION Last Admin: 02/01/21 11:36 Dose: 1 applic Documented by: Sodium Chloride () 250 mls @ 15 mls/hr IV .[id number] PRN PRN Reason: Saline Flush Last Infusion: 01/31/21 10:32 Dose: Infused Documented by: Sodium Chloride () 250 mls @ 15 mls/hr IV .[id number] PRN PRN Reason: Additional IVPB Infusion Last Infusion: 02/03/21 14:42 Dose: Infused Documented by: Insulin Glargine (Insulin Glargine 100 Units/Ml Pen) 35 units SC QHS [facility] Last Admin: 02/08/21 22:25 Dose: 35 u Documented by: Insulin Human Lispro (Insulin Lispro 100 Unit/Ml Insuln.Pen) 5 unit SC TIDCM [facility] Last Admin: 02/08/21 17:30 Dose: 5 units Documented by: L-Arginine/L-Glutamine/Calcium HMB (Rasta (Unflavored) Packet) 1 packet PO DAILYCM [facility] Last Admin: 02/08/21 08:15 Dose: 1 packet Documented by: Lactobacillus Acidophilus (Lactobacillus Acidophilus) 1 tablet PO DAILY [facility] Last Admin: 02/09/21 06:00 Dose: 1 tablet Documented by: Linezolid (Linezolid 600 Mg Tablet) 600 mg PO BID [facility] Last Admin: 02/09/21 06:00 Dose: 600 mg Documented by: Magnesium Chloride (Magnesium Chloride 64 Mg Delay Rel.Tablet) 128 mg PO BID [facility] Last Admin: 02/09/21 05:59 Dose: 128 mg Documented by: Magnesium Hydroxide (Magnesium Hydroxide 30 Ml Udc) 30 ml PO DAILY PRN PRN Reason: Constipation Nystatin (Nystatin Powder 15gm Bottle) 1 applic TOPICAL BID [facility]; Protocol Last Admin: 02/09/21 06:03 Dose: 1 applicatio Documented by: Oxycodone HCl (Oxycodone 5 Mg Tablet) 5 mg PO Q4H PRN PRN PRN Reason: Pain Score 4-10 Polyethylene Glycol (Polyethylene Glycol 3350 17 Gm Packet) 17 gm PO DAILY [facility] Last Admin: 02/09/21 06:01 Dose: Not Given Documented by: Pregabalin (Pregabalin 50 Mg Capsule) 100 mg PO BID [facility] Last Admin: 02/09/21 05:59 Dose: 100 mg Documented by: Senna/Docusate Sodium (Senna/Docusate Sodium 1 Tablet) 1 tablet PO BID [facility] Last Admin: 02/09/21 06:01 Dose: Not Given Documented by: Sodium Chloride (0.9% Saline Lock 10 Ml Syringe) 10 - 40 ml IV UD PRN PRN Reason: Open End PICC Flush Last Admin: 02/08/21 17:32 Dose: 20 ml Documented by: Sodium Chloride (0.9 % Nacl (Sterile) Posiflush 10 Ml) 10 - 40 ml IV UD PRN PRN Reason: Port access or dressing change Last Admin: 01/28/21 07:31 Dose: 20 ml Documented by: Tamsulosin HCl (Tamsulosin Hcl 0.4 Mg Capsule) 0.4 mg PO DAILY@1730 [facility] Last Admin: 02/08/21 17:30 Dose: 0.4 mg Documented by: Medical Necessity - Tobacco Use Smoking Status: Former smoker Tobacco Use: Cigarettes, Cigars Assessment/Plan All Active Problems Blister of right leg (Acute) Debility (Acute) Septic shock (Acute) Left heel ulceration down to subcutaneous tissue layer - healing Right leg blisters-healed Diabetic neuropathy Peripheral vascular disease to lower extremity Examination performed. Reviewed findings with patient. Patient underwent recent vascular procedure left LE per vascular surgery. This was performed at [facility] and included a left lower extremity angiogram. This revealed patent vessels including excellent to below the knee vessels and a pedal arch. Additional intervention is not performed at this time. The patient was advised to continue follow up with vascular specialist for lower extremity vascular disease. Left plantar heel ulceration had sharp excisional nonselective debridement was carried out into the level of subcutaneous tissue with a 15 blade with removal of all devitalized, slough, biofilm, and fibrous tissue. This was done without incidence. This was tolerated due to patient's neuropathy. Predebridement measurements were 2 x 3 x 0.2cm depth and post debridement measurements were 2.1 x 3.1 x 0.3 cm Wound care left heel: Santyl (for enzymatic debridement), gauze, kerlix and light asya dressing change daily. Keep offloaded at all times, no weight to left foot. He relates he has an offloading heel boot at home - requested patient to have family bring so he can use it. Patient still has not gotten it from family. He was reassured there are no signs of infection noted at this time. Right leg: Continue to cover with Adaptic, dry ABD pad and light asya dressing. Continue compression therapy bilateral lower extremities due to swelling He is sensitive to the elastic bandages and requests gauze roll was applied first. Podiatry will continue to follow weekly. Medical management per Dr. Whelan is noted. He plans to follow-up at [facility] after discharge. Please do not hesitate to call if you have any questions.
[2021-02-09] MEDS: Juven (unflavored) Packet 1 PACKET PO (08:14)
[2021-02-09] MEDS: Insulin Lispro 100 UNIT/ML INSULN.PEN SC ×3 (08:14→17:46)
[2021-02-09 10:00] VITALS: PULSE 76; O2SAT 96
[2021-02-09 11:00] LABS: Bedside Glucose 143 mg/dL (70-110)
[2021-02-09] MEDS: Collagenase 30gm Tube 1 APPLIC TOPICAL (11:58)
[2021-02-09 14:09] VITALS: BP 143/68; PULSE 81; RESP 18; TEMP 36.7; O2SAT 95
[2021-02-09 16:11] LABS: Bedside Glucose 167 mg/dL (70-110)
[2021-02-09] MEDS: Tamsulosin HCl 0.4 MG Capsule PO (17:45)
[2021-02-09] MEDS: Atorvastatin Calcium 10 MG Tablet PO (22:31)
[2021-02-09 22:56] LABS: Bedside Glucose 213 mg/dL (70-110)
[2021-02-10 05:45] VITALS: BP 135/55; PULSE 75; RESP 18; TEMP 36.5; O2SAT 97
[2021-02-10] MEDS: Linezolid 600 MG Tablet PO ×2 (05:46→17:13)
[2021-02-10] MEDS: Magnesium Chloride 64 MG Delay Rel.Tablet 128 MG PO ×2 (05:46→17:13)
[2021-02-10] MEDS: Pregabalin 50 MG Capsule 100 MG PO ×2 (05:46→17:13)
[2021-02-10] MEDS: amLODIPine 5 MG Tablet PO (05:47)
[2021-02-10] MEDS: Menthol/Lanolin/Calamine/Znox 113 GM Tube 1 APPLIC TOPICAL ×2 (05:48→21:07)
[2021-02-10] MEDS: Nystatin Powder 15gm Bottle 1 APPLIC TOPICAL ×2 (05:48→17:14)
[2021-02-10 06:26] LABS: Bedside Glucose 96 mg/dL (70-110)
[2021-02-10 07:18] LABS: Absolute Neutrophil Count 3.8 X10^3/uL (2.0-7.7); Basophil# 0.02 X10^3/uL; Basophil% 0.3 % (0-1); Eosinophil# 0.96 X10^3/uL; Eosinophils% 12.7 % (0-5); Hemoglobin 8.4 g/dL (13.0-16.5); Lymphocyte % 26.5 % (19-41); Mean Corp Hgb Conc 32.3 g/dL (32-36); Mean Corpuscular Hgb 28.5 pg (27.0-32.0); Mean Corpuscular Volume 88.1 fL (80-94); Mean Platelet Vol. 9.8 fl (6.2-12.0); Monocyte# 0.72 X10^3/uL; Monocyte% 9.5 % (0-10); NRBC Flagged by Analyzer 0 % (0-5); Neutrophil # 3.83 X10^3/uL (2.7-7.7); Neutrophil % 50.7 % (47-70); Platelet Count 105 K/mm3 (150-450); RBC Distribution Width CV 16.7 % (11.6-14.6); RBC Distribution Width SD 52.5 fl (35.1-43.9); Red Blood Count 2.95 M/mm3 (4.6-6.2); White Blood Count 7.6 K/mm3 (4.4-11.0)
[2021-02-10 07:40] LABS: Anion Gap 6 (5-15); BUN 94 mg/dL (7-18); BUN/Creat Ratio 44.5 RATIO (10-20); Calcium,Total 8.2 mg/dL (8.5-10.1); Chloride 116 mmol/L (98-107); Creatinine, Serum 2.11 mg/dL (0.70-1.30); EST Glomerular Filtration Rate 32 mL/min (>60); Est Glom Filt Rate - Afr Amer 39 mL/min (>60); Estimated Creatinine Clearance 30.73 ml/min; Glucose 96 mg/dL (74-106); Potassium 5.2 mmol/L (3.5-5.1); Sodium Level 142 mmol/L (136-145)
[2021-02-10] MEDS: Juven (unflavored) Packet 1 PACKET PO (08:25)
[2021-02-10 10:16] LABS: Bedside Glucose 143 mg/dL (70-110)
[2021-02-10] MEDS: Sodium Polystyrene Sulfonate 15 GM/60 ML UDC 30 GM PO (10:45)
[2021-02-10] MEDS: Insulin Lispro 100 UNIT/ML INSULN.PEN SC ×2 (12:06→17:18)
[2021-02-10] MEDS: Collagenase 30gm Tube 1 APPLIC TOPICAL (13:01)
[2021-02-10 13:32] VITALS: BP 125/63; PULSE 76; RESP 16; TEMP 36.7; O2SAT 94
[2021-02-10] MEDS: Senna/Docusate Sodium 1 Tablet PO (17:13)
[2021-02-10] MEDS: Tamsulosin HCl 0.4 MG Capsule PO (17:13)
[2021-02-10 17:15] LABS: Bedside Glucose 170 mg/dL (70-110)
[2021-02-10] MEDS: Atorvastatin Calcium 10 MG Tablet PO (21:08)
[2021-02-10 21:30] LABS: Bedside Glucose 182 mg/dL (70-110)
[2021-02-11 06:25] LABS: Bedside Glucose 87 mg/dL (70-110)
[2021-02-11] MEDS: amLODIPine 5 MG Tablet PO (06:34)
[2021-02-11] MEDS: Linezolid 600 MG Tablet PO ×2 (06:34→17:17)
[2021-02-11] MEDS: Magnesium Chloride 64 MG Delay Rel.Tablet 128 MG PO ×2 (06:34→17:18)
[2021-02-11] MEDS: Menthol/Lanolin/Calamine/Znox 113 GM Tube 1 APPLIC TOPICAL ×2 (06:35→21:44)
[2021-02-11] MEDS: Nystatin Powder 15gm Bottle 1 APPLIC TOPICAL ×2 (06:35→17:18)
[2021-02-11] MEDS: Pregabalin 50 MG Capsule 100 MG PO ×2 (06:37→17:18)
[2021-02-11 06:41] VITALS: BP 128/67; PULSE 86; RESP 18; TEMP 36.9; O2SAT 96
[2021-02-11 06:43] LABS: Anion Gap 7 (5-15); BUN 88 mg/dL (7-18); BUN/Creat Ratio 44.9 RATIO (10-20); Calcium,Total 8.2 mg/dL (8.5-10.1); Chloride 116 mmol/L (98-107); Creatinine, Serum 1.96 mg/dL (0.70-1.30); EST Glomerular Filtration Rate 35 mL/min (>60); Est Glom Filt Rate - Afr Amer 43 mL/min (>60); Estimated Creatinine Clearance 33.08 ml/min; Glucose 90 mg/dL (74-106); Potassium 4.6 mmol/L (3.5-5.1); Sodium Level 142 mmol/L (136-145)
[2021-02-11] MEDS: Insulin Lispro 100 UNIT/ML INSULN.PEN SC ×3 (08:19→17:32)
[2021-02-11] MEDS: Juven (unflavored) Packet 1 PACKET PO (08:20)
[2021-02-11] MEDS: Iron Polysaccharide Complex 150 MG CAPSULE PO (08:20)
[2021-02-11] MEDS: Collagenase 30gm Tube 1 APPLIC TOPICAL (10:22)
[2021-02-11 10:56] LABS: Bedside Glucose 117 mg/dL (70-110)
[2021-02-11 13:40] VITALS: BP 136/50; PULSE 71; RESP 16; TEMP 36.2; O2SAT 97
[2021-02-11 16:20] LABS: Bedside Glucose 171 mg/dL (70-110)
[2021-02-11] MEDS: Tamsulosin HCl 0.4 MG Capsule PO (17:17)
[2021-02-11 21:41] LABS: Bedside Glucose 194 mg/dL (70-110)
[2021-02-11] MEDS: Atorvastatin Calcium 10 MG Tablet PO (21:42)
[2021-02-12 05:41] LABS: Hematocrit 26.7 % (40-54); Hemoglobin 8.7 g/dL (13.0-16.5)
[2021-02-12 06:09] VITALS: BP 149/63; PULSE 76; RESP 18; TEMP 36.4; O2SAT 98
[2021-02-12] MEDS: amLODIPine 5 MG Tablet PO (06:10)
[2021-02-12] MEDS: Magnesium Chloride 64 MG Delay Rel.Tablet 128 MG PO ×2 (06:10→17:48)
[2021-02-12] MEDS: Linezolid 600 MG Tablet PO (06:11)
[2021-02-12] MEDS: Nystatin Powder 15gm Bottle 1 APPLIC TOPICAL ×2 (06:11→11:51)
[2021-02-12] MEDS: Menthol/Lanolin/Calamine/Znox 113 GM Tube 1 APPLIC TOPICAL ×2 (06:12→11:52)
[2021-02-12] MEDS: Pregabalin 50 MG Capsule 100 MG PO ×2 (06:14→17:52)
[2021-02-12 06:25] LABS: Bedside Glucose 133 mg/dL (70-110)
[2021-02-12] MEDS: Juven (unflavored) Packet 1 PACKET PO (08:17)
[2021-02-12] MEDS: Iron Polysaccharide Complex 150 MG CAPSULE PO (08:18)
[2021-02-12] MEDS: Insulin Lispro 100 UNIT/ML INSULN.PEN SC ×3 (08:18→17:47)
[2021-02-12 11:30] LABS: Bedside Glucose 153 mg/dL (70-110)
--- NOTE | 2021-02-12 13:03 | PN.ID_ITS ---
Patient Problems: Active and Suspected Problems Debility (Acute) Septic shock (Acute) Subjective: Rash fading, no fever, finger improved. - Physical Exam Vitals/I&O's: Vital Signs Temp Pulse Resp BP Pulse Ox 97.6 F L 76 18 149/63 H 98 02/12/21 06:09 02/12/21 06:09 02/12/21 06:09 02/12/21 06:09 02/12/21 06:09 Oxygen Delivery Method Room Air Weight: 139.298 kg Body Mass Index (BMI) 42.0 Intake and Output for Last 24 Hours 02/10/21 02/11/21 02/12/21 22:59 23:59 23:59 Intake Total 840 / 840 Output Total Balance 840 / 840 General: Alert, Cooperative, No apparent distress Lungs: Clear to auscultation, Normal air movement Cardiovascular: Regular rate, Regular Rhythm Abdomen: Soft, Non Tender, Non-Distended Skin: Rash Present Musculoskeletal: - - L index finger still some swelling. Laboratory Results 02/11/21 16:10: POC Glucose 171 H 02/11/21 21:29: POC Glucose 194 H 02/12/21 05:30: Hgb 8.7 L, Hct 26.7 L 02/12/21 06:18: POC Glucose 133 H 02/12/21 10:37: POC Glucose 153 H Current Medications Acetaminophen (Acetaminophen 500 Mg Tablet) 1,000 mg PO Q6H PRN PRN PRN Reason: Pain Score 1-3 Last Admin: 01/21/21 20:30 Dose: 1,000 mg Documented by: Amlodipine Besylate (Amlodipine 5 Mg Tablet) 5 mg PO DAILY [facility] Last Admin: 02/12/21 06:10 Dose: 5 mg Documented by: Atorvastatin Calcium (Atorvastatin Calcium 10 Mg Tablet) 10 mg PO QHS [facility] Last Admin: 02/11/21 21:42 Dose: 10 mg Documented by: Bisacodyl (Bisacodyl 10 Mg Suppository) 10 mg RC DAILY PRN PRN Reason: Constipation Calamine/Phenol (Menthol/Lanolin/Calamine/Znox 113 Gm Tube) 1 applic TOPICAL 06,22 DAISY; Protocol Last Admin: 02/12/21 11:52 Dose: 1 applicatio Documented by: Collagenase (Collagenase 30gm Tube) 1 applic TOPICAL DAILY@1000 [facility]; Protocol Last Admin: 02/11/21 10:22 Dose: 1 applicatio Documented by: Emollient Ointment (Emollient Combination No.72 500 Ml Lotion) 1 applic TOPICAL 0600,2200 [facility]; Protocol Last Admin: 02/12/21 06:12 Dose: 1 applicatio Documented by: Glucagon (Glucagon 1 Mg/Ml Syringe) 1 mg SC X1 PRN PRN Reason: HYPOGLYCEMIA Heparin Sodium (Beef Lung) (Heparin Pf Lock 10 Units/Ml 50 Units/5 Ml Syringe) 50 units IV UD PRN PRN Reason: PICC Line Heparin Flush Last Admin: 01/27/21 16:29 Dose: 50 units Documented by: Hydrocortisone (Hydrocortisone 2.5% Crm) 1 applic TOPICAL BID PRN PRN; Protocol PRN Reason: RASH/TOPICAL IRRITATION Last Admin: 02/01/21 11:36 Dose: 1 applic Documented by: Sodium Chloride () 250 mls @ 15 mls/hr IV .[id number] PRN PRN Reason: Saline Flush Last Infusion: 01/31/21 10:32 Dose: Infused Documented by: Sodium Chloride () 250 mls @ 15 mls/hr IV .[id number] PRN PRN Reason: Additional IVPB Infusion Last Infusion: 02/03/21 14:42 Dose: Infused Documented by: Insulin Glargine (Insulin Glargine 100 Units/Ml Pen) 35 units SC QHS [facility] Last Admin: 02/11/21 21:42 Dose: 35 u Documented by: Insulin Human Lispro (Insulin Lispro 100 Unit/Ml Insuln.Pen) 5 unit SC TIDCM [facility] Last Admin: 02/12/21 11:50 Dose: 5 units Documented by: L-Arginine/L-Glutamine/Calcium HMB (Rasta (Unflavored) Packet) 1 packet PO DAILYCM [facility] Last Admin: 02/12/21 08:17 Dose: 1 packet Documented by: Lactobacillus Acidophilus (Lactobacillus Acidophilus) 1 tablet PO DAILY [facility] Last Admin: 02/12/21 06:10 Dose: 1 tablet Documented by: Magnesium Chloride (Magnesium Chloride 64 Mg Delay Rel.Tablet) 128 mg PO BID [facility] Last Admin: 02/12/21 06:10 Dose: 128 mg Documented by: Magnesium Hydroxide (Magnesium Hydroxide 30 Ml Udc) 30 ml PO DAILY PRN PRN Reason: Constipation Nystatin (Nystatin Powder 15gm Bottle) 1 applic TOPICAL BID [facility]; Protocol Last Admin: 02/12/21 11:51 Dose: 1 applicatio Documented by: Oxycodone HCl (Oxycodone 5 Mg Tablet) 5 mg PO Q4H PRN PRN PRN Reason: Pain Score 4-10 Polyethylene Glycol (Polyethylene Glycol 3350 17 Gm Packet) 17 gm PO DAILY [facility] Last Admin: 02/12/21 06:11 Dose: Not Given Documented by: Polysaccharide Iron Complex (Iron Polysaccharide Complex 150 Mg Capsule) 150 mg PO DAILYCM [facility] Last Admin: 02/12/21 08:18 Dose: 150 mg Documented by: Pregabalin (Pregabalin 50 Mg Capsule) 100 mg PO BID [facility] Last Admin: 02/12/21 06:14 Dose: 100 mg Documented by: Senna/Docusate Sodium (Senna/Docusate Sodium 1 Tablet) 1 tablet PO BID [facility] Last Admin: 02/12/21 11:52 Dose: Not Given Documented by: Sodium Chloride (0.9% Saline Lock 10 Ml Syringe) 10 - 40 ml IV UD PRN PRN Reason: Open End PICC Flush Last Admin: 02/08/21 17:32 Dose: 20 ml Documented by: Sodium Chloride (0.9 % Nacl (Sterile) Posiflush 10 Ml) 10 - 40 ml IV UD PRN PRN Reason: Port access or dressing change Last Admin: 01/28/21 07:31 Dose: 20 ml Documented by: Tamsulosin HCl (Tamsulosin Hcl 0.4 Mg Capsule) 0.4 mg PO DAILY@1730 [facility] Last Admin: 02/11/21 17:17 Dose: 0.4 mg Documented by: Medical Necessity - Tobacco Use Smoking Status: Former smoker Tobacco Use: Cigarettes, Cigars Route of nutrition/ use of supplements: [] Nutritional Intake: [] IV Site: [] Luu Catheter: [] - Assessment/Plan Antibiotics: [] Assessment/Plan: [] Active and Suspected Problems Debility (Acute) Septic shock (Acute) 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 Start date is 01/04 transfer here. Finger much improved. Stop date planned for 02/12/21, will stop abx today. rash/itching - returned. 02/01, changed vanc to po linezolid. Will follow as needed
[2021-02-12 14:15] VITALS: BP 135/57; PULSE 74; RESP 18; TEMP 36.6; O2SAT 98
[2021-02-12] MEDS: Collagenase 30gm Tube 1 APPLIC TOPICAL (15:14)
--- NOTE | 2021-02-12 15:17 | NURSING ---
resident states he is trying to find someone to get him to an appointment to get his second Covid vaccine. It is due on 02/15/21. He also states he thinks Eucerin is aggravating his rash and would like it to be stopped. Will update Dr fermin with this.
--- NOTE | 2021-02-12 16:09 | NURSING ---
wound photo: left heel
[2021-02-12 16:26] LABS: Bedside Glucose 187 mg/dL (70-110)
[2021-02-12] MEDS: Tamsulosin HCl 0.4 MG Capsule PO (17:48)
--- NOTE | 2021-02-12 18:17 | NURSING ---
Rt index finger soaked in warm soapy water.
[2021-02-12 21:26] LABS: Bedside Glucose 193 mg/dL (70-110)
[2021-02-12] MEDS: Atorvastatin Calcium 10 MG Tablet PO (21:37)
[2021-02-13] MEDS: amLODIPine 5 MG Tablet PO (05:04)
[2021-02-13] MEDS: Magnesium Chloride 64 MG Delay Rel.Tablet 128 MG PO ×2 (05:04→16:45)
[2021-02-13] MEDS: Pregabalin 50 MG Capsule 100 MG PO ×2 (05:05→16:48)
[2021-02-13] MEDS: Nystatin Powder 15gm Bottle 1 APPLIC TOPICAL ×2 (05:06→16:45)
[2021-02-13] MEDS: Menthol/Lanolin/Calamine/Znox 113 GM Tube 1 APPLIC TOPICAL ×2 (05:06→22:35)
[2021-02-13 05:07] VITALS: BP 124/49; PULSE 82; RESP 17; TEMP 36.3; O2SAT 95
[2021-02-13 06:21] LABS: Bedside Glucose 109 mg/dL (70-110)
[2021-02-13] MEDS: Insulin Lispro 100 UNIT/ML INSULN.PEN SC ×3 (08:02→17:18)
[2021-02-13] MEDS: Juven (unflavored) Packet 1 PACKET PO (08:03)
[2021-02-13] MEDS: Iron Polysaccharide Complex 150 MG CAPSULE PO (08:03)
[2021-02-13 10:55] LABS: Bedside Glucose 107 mg/dL (70-110)
[2021-02-13] MEDS: Collagenase 30gm Tube 1 APPLIC TOPICAL (12:46)
--- NOTE | 2021-02-13 13:03 | NURSING ---
Addendum entered by Karen Helton 02/13/21 17:53: DR. HILLS ORDERED LASIX X5 DAYS AND UA C+S. WILL UPDATE R'. Original Note: INCREASED EDEMA NOTED DURING ASSESSMENT. +2 TO LEGS/FEET, +1 TO HANDS/ARMS. R' STATES HE HAS NOTICED INCREASED SWELLING AND SOMETIMES TAKES LASIX AT HOME FOR A FEW DAYS. DENIES SOB/CP. ALSO, R' C/O URGENCY AND BURNING WITH URINATION. WILL UPDATE DR HILLS.
[2021-02-13 13:04] VITALS: BP 149/57; PULSE 78; RESP 18; TEMP 36.4; O2SAT 96
[2021-02-13 16:20] LABS: Bedside Glucose 184 mg/dL (70-110)
[2021-02-13] MEDS: Tamsulosin HCl 0.4 MG Capsule PO (16:45)
[2021-02-13] MEDS: Furosemide 40 MG Tablet PO (17:54)
--- NOTE | 2021-02-13 18:18 | NURSING ---
STRAIGHT CATH AT THIS TIME TO OBTAIN UA C+S D/T R' C/O BURNING AND URGENCY. URINE YELLOW, CLOUDY.
[2021-02-13 18:40] LABS: Mucous, Urine 0 SEEN /hpf (<or=2+)
[2021-02-13 19:23] LABS: Color, Urine Yellow (Yellow); Glucose, Dipstick Normal (Normal); Ketone-Dipstick Negative (Negative); Leukocyte Esterase-Dipstick 500 /ul (Negative); Nitrite-Dipstick Negative (Negative); Occult Blood-Urine 250 /ul (Negative); Protein-Dipstick 30 mg/dl (Negative); Urine Bilirubin Dipstick Negative (Negative); Urine Clarity Sl. Cloudy (Clear); Urine Urobilinogen Normal (Normal)
[2021-02-13 19:35] LABS: Red Blood Cells-Urine 10-25 SEEN /hpf (0-5); Squamous Epithelial Cells - UA 0-5 SEEN /hpf (0-5); White Blood Cells 50-100 SEEN /hpf (0-5)
[2021-02-13 19:36] LABS: Bacteria 1+ /hpf (None Seen)
[2021-02-13 21:25] LABS: Bedside Glucose 138 mg/dL (70-110)
--- NOTE | 2021-02-13 22:35 | NURSING ---
Rt hand soaked on warm, soapy water per dr order. Pt tolerated well and dried hand w/ towel. Pain verbalized to LEs that is burning. Lasts for a few seconds Pt wincing and moaning. Offered Tylenol or Oxycodone. Refuses any pain medication at this time.
[2021-02-13] MEDS: Atorvastatin Calcium 10 MG Tablet PO (22:36)
[2021-02-13] MEDS: Cefdinir 300 MG Capsule PO (22:37)
[2021-02-14] MEDS: Pregabalin 50 MG Capsule 100 MG PO ×2 (05:22→16:14)
[2021-02-14] MEDS: Menthol/Lanolin/Calamine/Znox 113 GM Tube 1 APPLIC TOPICAL ×2 (05:22→21:39)
[2021-02-14] MEDS: Furosemide 40 MG Tablet PO ×2 (05:23→16:11)
[2021-02-14] MEDS: Magnesium Chloride 64 MG Delay Rel.Tablet 128 MG PO ×2 (05:23→16:11)
[2021-02-14] MEDS: Cefdinir 300 MG Capsule PO (05:23)
[2021-02-14] MEDS: amLODIPine 5 MG Tablet PO (05:24)
[2021-02-14] MEDS: Nystatin Powder 15gm Bottle 1 APPLIC TOPICAL ×2 (05:24→16:12)
[2021-02-14 05:32] VITALS: BP 134/60; PULSE 104; RESP 20; TEMP 37.7; O2SAT 93
--- NOTE | 2021-02-14 05:33 | NURSING ---
Temp 99.9. Offered Tylenol and a cool washcloth to apply to forehead. Pt refuses both options.
[2021-02-14 06:21] LABS: Bedside Glucose 35 mg/dL (70-110)
[2021-02-14 06:40] LABS: Bedside Glucose 45 mg/dL (70-110)
[2021-02-14] MEDS: Glucagon 1 MG/ML Syringe SC (06:40)
--- NOTE | 2021-02-14 06:45 | NURSING ---
Blood sugar 35. Pt semi-alert. Consumes two glasses of orange juice w/ sugar, an additional glass of orange juice, one small carton of skim milk, one rowan cracker, one partal pad of peanut butter, and one small container of chocolate ice cream. Refer to labs for additional blood sugar readings.
[2021-02-14 06:50] LABS: Bedside Glucose 93 mg/dL (70-110)
[2021-02-14 07:11] LABS: Bedside Glucose 145 mg/dL (70-110)
[2021-02-14] MEDS: Insulin Lispro 100 UNIT/ML INSULN.PEN SC ×3 (08:28→17:38)
[2021-02-14] MEDS: Juven (unflavored) Packet 1 PACKET PO (08:29)
[2021-02-14] MEDS: Iron Polysaccharide Complex 150 MG CAPSULE PO (08:29)
[2021-02-14] MEDS: 0.9% Normal Saline 1,000 ML 999 ML IV (09:07)
[2021-02-14 10:00] VITALS: PULSE 84; RESP 16; O2SAT 94
[2021-02-14 11:21] LABS: Bedside Glucose 165 mg/dL (70-110)
[2021-02-14] MEDS: Ceftriaxone 1 GM/50 ML BAG IV (11:21)
--- NOTE | 2021-02-14 13:49 | NURSING ---
Pt came back from appt from Dr. Chaney with new orders Increase Lasix 40mg BID. Avoid giving [place] juice for low sugars d/t increased K+. Follow up 06/13/21 Pt to have repeat CBC Urine protein CR.
[2021-02-14 14:24] VITALS: BP 162/76; PULSE 96; RESP 18; TEMP 37.6; O2SAT 97
[2021-02-14] MEDS: Collagenase 30gm Tube 1 APPLIC TOPICAL (14:48)
--- NOTE | 2021-02-14 14:48 | NURSING ---
Called pt's son and updated him on new orders.
[2021-02-14] MEDS: Acetaminophen 500 MG Tablet 1000 MG PO (16:10)
[2021-02-14] MEDS: Tamsulosin HCl 0.4 MG Capsule PO (16:11)
[2021-02-14 16:25] LABS: Bedside Glucose 161 mg/dL (70-110)
[2021-02-14 17:33] VITALS: TEMP 37.5
[2021-02-14 21:25] LABS: Bedside Glucose 209 mg/dL (70-110)
[2021-02-14] MEDS: Atorvastatin Calcium 10 MG Tablet PO (21:43)
[2021-02-14 22:00] VITALS: TEMP 37.7
--- NOTE | 2021-02-14 23:41 | NURSING ---
Right hand soaked in soapy water for 10 minutes. Patted dry. Left open to air.
--- NOTE | 2021-02-14 23:44 | NURSING ---
Right second finger soaked in soapy water for 10 minutes. Patted dry, left open to air.
[2021-02-15 02:02] VITALS: TEMP 37.4
[2021-02-15] MEDS: Magnesium Chloride 64 MG Delay Rel.Tablet 128 MG PO ×2 (05:16→16:35)
[2021-02-15] MEDS: Menthol/Lanolin/Calamine/Znox 113 GM Tube 1 APPLIC TOPICAL ×2 (05:16→22:27)
[2021-02-15] MEDS: Nystatin Powder 15gm Bottle 1 APPLIC TOPICAL ×2 (05:16→16:36)
[2021-02-15] MEDS: amLODIPine 5 MG Tablet PO (05:17)
[2021-02-15] MEDS: Pregabalin 50 MG Capsule 100 MG PO ×2 (05:18→16:41)
[2021-02-15] MEDS: Acetaminophen 500 MG Tablet 1000 MG PO ×2 (05:18→22:33)
[2021-02-15 05:20] VITALS: BP 138/60; PULSE 91; RESP 20; TEMP 37.5; O2SAT 96
[2021-02-15] MEDS: Ceftriaxone 1 GM/50 ML BAG IV (05:20)
[2021-02-15 06:20] LABS: Bedside Glucose 121 mg/dL (70-110)
--- NOTE | 2021-02-15 06:30 | PN_ITS ---
Patient Problems: Active and Suspected Problems Debility (Acute) Septic shock (Acute) Subjective: Patient seen and examined resting comfortably. He denies any nausea, fever, chills, purulence. His foot pain is controlled with Tylenol. He is now treated for UTI recently. He also recently completed antibiotic course for finger ost eomyelitis as well. Patient denies any new pedal complaints. - Physical Exam Vitals/I&O's: Vital Signs Temp Pulse Resp BP Pulse Ox 99.5 F H 91 20 H 138/60 H 96 02/15/21 05:20 02/15/21 05:20 02/15/21 05:20 02/15/21 05:20 02/15/21 05:20 Oxygen Delivery Method Room Air Weight: 140.614 kg Body Mass Index (BMI) 42.0 Intake and Output for Last 24 Hours 02/13/21 02/14/21 02/15/21 23:59 23:59 23:59 Intake Total 840 / 840 2841.25 / 2841.25 Output Total 725 / 725 500 / 900 1000 / 1000 Balance 115 / 115 2341.25 / 1941.25 -1000 / -1000 General: Alert, Oriented x3, Cooperative Extremities: No cyanosis, Capillary Refill Less than 3 Seconds, No Calf Tenderness - Negative Eliel and Lassiter sign bilateral, Diminished Peripheral Pulses, Edema Skin: Ulcer/ Wound - No purulence, erythema, streaking, odor, infection. Healthy granular base tissue is noted in the ulcer site with peripheral atrophic skin. No deep probing or exposed deep tissues or necrosis. No adjacent bogginess or fluctuance on palpation Musculoskeletal: No Tenderness to Palpation of Joints or Extremities, Muscle Wasting Neurological: - - Lack of normal epicritic sensation is consistent neuropathic status Psych/Mental Status: Normal Affect, Appropriate Microbiology Past 72 Hours 02/13/21 18:10 Urine, Catheterized Urine Culture - Preliminary GNR lactose director of clinical trials Laboratory Results 02/14/21 06:34: POC Glucose 45 L 02/14/21 06:47: POC Glucose 93 02/14/21 07:05: POC Glucose 145 H 02/14/21 11:14: POC Glucose 165 H 02/14/21 16:18: POC Glucose 161 H 02/14/21 21:17: POC Glucose 209 H 02/15/21 06:10: POC Glucose 121 H Current Medications Acetaminophen (Acetaminophen 500 Mg Tablet) 1,000 mg PO Q6H PRN PRN PRN Reason: Pain Score 1-3 Last Admin: 02/15/21 05:18 Dose: 1,000 mg Documented by: Amlodipine Besylate (Amlodipine 5 Mg Tablet) 5 mg PO DAILY [facility] Last Admin: 02/15/21 05:17 Dose: 5 mg Documented by: Atorvastatin Calcium (Atorvastatin Calcium 10 Mg Tablet) 10 mg PO QHS [facility] Last Admin: 02/14/21 21:43 Dose: 10 mg Documented by: Bisacodyl (Bisacodyl 10 Mg Suppository) 10 mg RC DAILY PRN PRN Reason: Constipation Calamine/Phenol (Menthol/Lanolin/Calamine/Znox 113 Gm Tube) 1 applic TOPICAL 22 DAISY; Protocol Last Admin: 02/15/21 05:16 Dose: 1 applicatio Documented by: Collagenase (Collagenase 30gm Tube) 1 applic TOPICAL DAILY@1000 DAISY; Protocol Last Admin: 02/14/21 14:48 Dose: 1 applicatio Documented by: Furosemide (Furosemide 40 Mg Tablet) 40 mg PO BID@1000,1800 DAISY Stop: 02/19/21 18:01 Last Admin: 02/14/21 16:11 Dose: 40 mg Documented by: Glucagon (Glucagon 1 Mg/Ml Syringe) 1 mg SC X1 PRN PRN Reason: HYPOGLYCEMIA Last Admin: 02/14/21 06:40 Dose: 1 mg Documented by: Heparin Sodium (Beef Lung) (Heparin Pf Lock 10 Units/Ml 50 Units/5 Ml Syringe) 50 units IV UD PRN PRN Reason: PICC Line Heparin Flush Last Admin: 01/27/21 16:29 Dose: 50 units Documented by: Hydrocortisone (Hydrocortisone 2.5% Crm) 1 applic TOPICAL BID PRN PRN; Protocol PRN Reason: RASH/TOPICAL IRRITATION Last Admin: 02/01/21 11:36 Dose: 1 applic Documented by: Sodium Chloride () 250 mls @ 15 mls/hr IV .[id number] PRN PRN Reason: Saline Flush Last Infusion: 02/14/21 14:49 Dose: 0 mls/hr Documented by: Sodium Chloride () 250 mls @ 15 mls/hr IV .[id number] PRN PRN Reason: Additional IVPB Infusion Last Infusion: 02/03/21 14:42 Dose: Infused Documented by: Ceftriaxone Sodium (Rocephin) 1 gm in 50 mls @ 100 mls/hr IV Q24@0600 [facility] Stop: 02/19/21 06:01 Last Admin: 02/15/21 05:20 Dose: 100 mls/hr Documented by: Insulin Glargine (Insulin Glargine 100 Units/Ml Pen) 25 units SC QHS [facility] Last Admin: 02/14/21 21:41 Dose: 25 units Documented by: Insulin Human Lispro (Insulin Lispro 100 Unit/Ml Insuln.Pen) 5 unit SC TIDCM [facility] Last Admin: 02/14/21 17:38 Dose: 5 units Documented by: L-Arginine/L-Glutamine/Calcium HMB ([facility] ([facility]flavored) [facility]) [facility] Last Admin: 02/14/21 08:29 Dose: 1 packet Documented by: Lactobacillus Acidophilus (Lactobacillus Acidophilus) 1 tablet PO DAILY [facility] Last Admin: 02/15/21 05:15 Dose: 1 tablet Documented by: Magnesium Chloride (Magnesium Chloride 64 Mg Delay Rel.Tablet) 128 mg PO BID [facility] Last Admin: 02/15/21 05:16 Dose: 128 mg Documented by: Magnesium Hydroxide (Magnesium Hydroxide 30 Ml Udc) 30 ml PO DAILY PRN PRN Reason: Constipation Nystatin (Nystatin Powder 15gm Bottle) 1 applic TOPICAL BID [facility]; Protocol Last Admin: 02/15/21 05:16 Dose: 1 applicatio Documented by: Oxycodone HCl (Oxycodone 5 Mg Tablet) 5 mg PO Q4H PRN PRN PRN Reason: Pain Score 4-10 Polyethylene Glycol (Polyethylene Glycol 3350 17 Gm Packet) 17 gm PO DAILY [facility] Last Admin: 02/15/21 05:14 Dose: Not Given Documented by: Polysaccharide Iron Complex (Iron Polysaccharide Complex 150 Mg Capsule) [facility] Last Admin: 02/14/21 08:29 Dose: 150 mg Documented by: Pregabalin (Pregabalin 50 Mg Capsule) 100 mg PO BID [facility] Last Admin: 02/15/21 05:18 Dose: 100 mg Documented by: Senna/Docusate Sodium (Senna/Docusate Sodium 1 Tablet) 1 tablet PO BID [facility] Last Admin: 02/15/21 05:14 Dose: Not Given Documented by: Sodium Chloride (0.9% Saline Lock 10 Ml Syringe) 10 - 40 ml IV UD PRN PRN Reason: Open End PICC Flush Last Admin: 02/08/21 17:32 Dose: 20 ml Documented by: Sodium Chloride (0.9 % Nacl (Sterile) Posiflush 10 Ml) 10 - 40 ml IV UD PRN PRN Reason: Port access or dressing change Last Admin: 01/28/21 07:31 Dose: 20 ml Documented by: Tamsulosin HCl (Tamsulosin Hcl 0.4 Mg Capsule) 0.4 mg PO DAILY@1730 DAISY Last Admin: 02/14/21 16:11 Dose: 0.4 mg Documented by: Medical Necessity - Tobacco Use Smoking Status: Former smoker Tobacco Use: Cigarettes, Cigars Assessment/Plan All Active Problems Blister of right leg (Acute) Debility (Acute) Septic shock (Acute) Left heel ulceration down to subcutaneous tissue layer - healing Diabetic neuropathy Peripheral vascular disease to lower extremity Examination performed. Reviewed findings with patient. He is afebrile and vitals are stable. Left plantar heel ulceration had sharp excisional subcutaneous debridement with a 15 blade with removal of all devitalized, slough, biofilm, and fibrous tissue after verbal consent was obtained. This was done without incidence. This was tolerated this procedure without local anesthetic due his neuropathy. Predebridement measurements were 1.6 x 2.9 x 0.1cm depth and post debridement measurements were 1.7 x 3.0 x 0.1 cm Wound care left heel: Santyl (for enzymatic debridement), gauze, kerlix and l ight asya dressing change daily. Keep offloaded at all times, no weight to left foot. To continue offloading boot which was in place today. He is already established with vascular surgeon and additional intervention is not recommended at this time. Adequate perfusion for healing is suspected. Right leg: Continue to cover with Adaptic, dry ABD pad and light asya dressing. Continue compression therapy bilateral lower extremities due to swelling He is sensitive to the elastic bandages and requests gauze roll was applied first. Podiatry will continue to follow weekly. Medical management per Dr. Whelan is noted. He plans to follow-up at [facility] after discharge. Please do not hesitate to call if you have any questions. Faviola Sams DPM, FACFAS [facility] [phone]
[2021-02-15] MEDS: Juven (unflavored) Packet 1 PACKET PO (08:02)
[2021-02-15] MEDS: Insulin Lispro 100 UNIT/ML INSULN.PEN SC ×3 (08:03→16:37)
[2021-02-15] MEDS: Iron Polysaccharide Complex 150 MG CAPSULE PO (08:03)
--- NOTE | 2021-02-15 09:58 | NURSING ---
Dr Sams was in to see patient this am and changed dressing.
[2021-02-15 10:00] VITALS: PULSE 90; RESP 18; O2SAT 92
[2021-02-15] MEDS: Collagenase 30gm Tube 1 APPLIC TOPICAL (11:22)
[2021-02-15] MEDS: Furosemide 40 MG Tablet PO ×2 (11:22→16:35)
[2021-02-15 11:35] LABS: Bedside Glucose 127 mg/dL (70-110)
[2021-02-15 14:28] VITALS: BP 98/59; PULSE 83; RESP 18; TEMP 36.3; O2SAT 100
[2021-02-15 16:31] LABS: Bedside Glucose 224 mg/dL (70-110)
[2021-02-15] MEDS: Cefdinir 300 MG Capsule PO (16:36)
[2021-02-15] MEDS: Tamsulosin HCl 0.4 MG Capsule PO (16:37)
[2021-02-15] MEDS: Hydrocortisone 2.5% Crm 1 APPLIC TOPICAL (20:27)
[2021-02-15 21:41] LABS: Bedside Glucose 206 mg/dL (70-110)
[2021-02-15] MEDS: Atorvastatin Calcium 10 MG Tablet PO (22:27)
[2021-02-16 05:00] VITALS: BP 127/65; PULSE 68; RESP 16; TEMP 36.1; O2SAT 99
[2021-02-16] MEDS: Menthol/Lanolin/Calamine/Znox 113 GM Tube 1 APPLIC TOPICAL ×2 (05:18→21:01)
[2021-02-16] MEDS: Cefdinir 300 MG Capsule PO ×2 (05:19→16:54)
[2021-02-16] MEDS: Magnesium Chloride 64 MG Delay Rel.Tablet 128 MG PO ×2 (05:19→16:54)
[2021-02-16] MEDS: Pregabalin 50 MG Capsule 100 MG PO ×2 (05:19→16:59)
[2021-02-16] MEDS: amLODIPine 5 MG Tablet PO (05:19)
[2021-02-16] MEDS: Nystatin Powder 15gm Bottle 1 APPLIC TOPICAL ×2 (05:20→16:55)
[2021-02-16 06:50] LABS: Bedside Glucose 112 mg/dL (70-110)
[2021-02-16] MEDS: Iron Polysaccharide Complex 150 MG CAPSULE PO (08:10)
[2021-02-16] MEDS: Juven (unflavored) Packet 1 PACKET PO (08:10)
[2021-02-16] MEDS: Insulin Lispro 100 UNIT/ML INSULN.PEN SC ×2 (08:10→11:19)
[2021-02-16] MEDS: Furosemide 40 MG Tablet PO ×2 (08:11→16:55)
[2021-02-16] MEDS: Hydrocortisone 2.5% Crm 1 APPLIC TOPICAL (08:15)
[2021-02-16 11:00] LABS: Bedside Glucose 152 mg/dL (70-110)
[2021-02-16 12:40] VITALS: BP 145/64; PULSE 70; RESP 18; TEMP 36.2; O2SAT 98
--- NOTE | 2021-02-16 13:01 | NURSING ---
Addendum entered by Karen Helton 02/16/21 14:51: DR. HILLS NEW ORDER FOR HUMALOG 70/30 BID. WILL UPDATE R'. Original Note: R' SISTER, BINH AND HER ARRIVED FOR DRESSING CHANGE TEACHING. TEACHING GIVEN FOR WOUND/LEG DRESSINGS. QUESTIONS REGARDING DRESSING CHANGES EXPLAINED/ANSWERED. THEY WERE CONCERNED REGARDING BLOOD SUGARS AND REQUESTED, ALONG WITH THE R', THAT THE INSULIN BE CHANGED BACK TO NOVOLOG 70/30 PER [facility]. WILL UPDATE DR HILLS ON REQUEST. ALSO, MADE COMMENTS ABOUT POOR ROOM VIEW, RASH, MEDICAL RECORDS, EDEMA, AND UTI. EXPLAINED THE TREATMENTS HE WAS RECEIVING AND IMPROVEMENTS HE HAS MADE. SISTER HAD MEDICATIONS WRITTEN OUT THAT ALL CAUSE RASHES ETC. INFORMED THEM THEY COULD GET COPY OF MEDICAL RECORDS FROM THE HOSPITAL. SHE WAS ALSO ASKING ABOUT HIS STAGING OF KIDNEY DISEASE. STATED THAT WOULD BE A QUESTION FOR DR. NICOLE. R' AND SISTER SOMEWHAT ARGUMENTATIVE T/O INTERACTION.
[2021-02-16] MEDS: Collagenase 30gm Tube 1 APPLIC TOPICAL (13:30)
[2021-02-16 16:26] LABS: Bedside Glucose 215 mg/dL (70-110)
[2021-02-16] MEDS: Tamsulosin HCl 0.4 MG Capsule PO (16:55)
[2021-02-16] MEDS: Insulin Human 75/25 Kwickpen 20 UNIT SC (17:26)
[2021-02-16 20:53] VITALS: BP 154/62; PULSE 94; RESP 18; TEMP 36.1; O2SAT 99
[2021-02-16] MEDS: Atorvastatin Calcium 10 MG Tablet PO (20:59)
[2021-02-16 21:31] LABS: Bedside Glucose 252 mg/dL (70-110)
[2021-02-16] MEDS: Acetaminophen 500 MG Tablet 1000 MG PO (21:36)
[2021-02-17] MEDS: Menthol/Lanolin/Calamine/Znox 113 GM Tube 1 APPLIC TOPICAL ×2 (05:13→23:07)
[2021-02-17] MEDS: Nystatin Powder 15gm Bottle 1 APPLIC TOPICAL ×2 (05:13→17:35)
[2021-02-17] MEDS: Cefdinir 300 MG Capsule PO ×2 (05:13→17:33)
[2021-02-17] MEDS: Magnesium Chloride 64 MG Delay Rel.Tablet 128 MG PO ×2 (05:13→17:33)
[2021-02-17] MEDS: Pregabalin 50 MG Capsule 100 MG PO ×2 (05:13→17:33)
[2021-02-17] MEDS: amLODIPine 5 MG Tablet PO (05:13)
[2021-02-17 06:30] LABS: Bedside Glucose 159 mg/dL (70-110)
[2021-02-17 07:35] LABS: Absolute Lymphocyte Count 1.33 X10^3/uL (0.83-4.51); Absolute Neutrophil Count 2.7 X10^3/uL (2.0-7.7); Basophil# 0.07 X10^3/uL; Basophil% 1.1 % (0-1); Eosinophil# 0.94 X10^3/uL; Eosinophils% 14.9 % (0-5); Hematocrit 25.3 % (40-54); Hemoglobin 8.3 g/dL (13.0-16.5); Lymphocyte # 1.33 X10^3/ul (4.0); Mean Corp Hgb Conc 32.8 g/dL (32-36); Mean Corpuscular Hgb 28.6 pg (27.0-32.0); Mean Corpuscular Volume 87.2 fL (80-94); Mean Platelet Vol. 11.8 fl (6.2-12.0); Monocyte% 20.6 % (0-10); NRBC Flagged by Analyzer 0 % (0-5); Neutrophil # 2.65 X10^3/uL (2.7-7.7); Neutrophil % 41.9 % (47-70); Platelet Count 102 K/mm3 (150-450); RBC Distribution Width CV 15.9 % (11.6-14.6); RBC Distribution Width SD 49.7 fl (35.1-43.9); White Blood Count 6.3 K/mm3 (4.4-11.0)
[2021-02-17 08:05] LABS: Anion Gap 7 (5-15); BUN 72 mg/dL (7-18); BUN/Creat Ratio 33.8 RATIO (10-20); Calcium,Total 8.3 mg/dL (8.5-10.1); Chloride 111 mmol/L (98-107); Creatinine, Serum 2.13 mg/dL (0.70-1.30); EST Glomerular Filtration Rate 32 mL/min (>60); Est Glom Filt Rate - Afr Amer 39 mL/min (>60); Estimated Creatinine Clearance 30.44 ml/min; Glucose 171 mg/dL (74-106); Potassium 4.2 mmol/L (3.5-5.1); Sodium Level 142 mmol/L (136-145)
[2021-02-17] MEDS: Insulin Human 75/25 Kwickpen 20 UNIT SC (08:38)
[2021-02-17] MEDS: Juven (unflavored) Packet 1 PACKET PO (08:39)
[2021-02-17] MEDS: Iron Polysaccharide Complex 150 MG CAPSULE PO (08:39)
[2021-02-17 10:50] LABS: Bedside Glucose 240 mg/dL (70-110)
[2021-02-17] MEDS: Furosemide 40 MG Tablet PO ×2 (10:52→17:33)
[2021-02-17] MEDS: Collagenase 30gm Tube 1 APPLIC TOPICAL (10:53)
--- NOTE | 2021-02-17 10:54 | NURSING ---
This nurse is aware of blood sugar of 240. There is no coverage ordered so this nurse will contact Dr. Whelan.
--- NOTE | 2021-02-17 11:30 | NURSING ---
Pt is soaking Rt index finger in warm soapy water for 10 min.
[2021-02-17] MEDS: Insulin Lispro 100 UNIT/ML INSULN.PEN 7 UNIT SC (12:09)
[2021-02-17 14:14] VITALS: BP 148/67; PULSE 75; RESP 16; TEMP 35.6; O2SAT 100
[2021-02-17 16:45] LABS: Bedside Glucose 178 mg/dL (70-110)
[2021-02-17] MEDS: Tamsulosin HCl 0.4 MG Capsule PO (17:33)
[2021-02-17] MEDS: Insulin Human 75/25 Kwickpen 25 UNIT SC (17:34)
[2021-02-17 21:56] LABS: Bedside Glucose 219 mg/dL (70-110)
--- NOTE | 2021-02-17 23:00 | NURSING ---
Pt requests soft boot be removed to LLE.
[2021-02-17] MEDS: Atorvastatin Calcium 10 MG Tablet PO (23:07)
[2021-02-18 05:00] VITALS: BP 118/51; PULSE 97; RESP 16; TEMP 36.7
[2021-02-18 06:21] LABS: Bedside Glucose 136 mg/dL (70-110)
[2021-02-18] MEDS: Nystatin Powder 15gm Bottle 1 APPLIC TOPICAL ×2 (07:07→17:40)
[2021-02-18] MEDS: Magnesium Chloride 64 MG Delay Rel.Tablet 128 MG PO ×2 (07:07→17:40)
[2021-02-18] MEDS: Cefdinir 300 MG Capsule PO ×2 (07:07→17:40)
[2021-02-18] MEDS: Pregabalin 50 MG Capsule 100 MG PO ×2 (07:07→17:42)
[2021-02-18] MEDS: amLODIPine 5 MG Tablet PO (07:08)
[2021-02-18] MEDS: Menthol/Lanolin/Calamine/Znox 113 GM Tube 1 APPLIC TOPICAL ×2 (07:08→22:43)
[2021-02-18] MEDS: Juven (unflavored) Packet 1 PACKET PO (08:43)
[2021-02-18] MEDS: Furosemide 40 MG Tablet PO ×2 (08:43→17:40)
[2021-02-18] MEDS: Iron Polysaccharide Complex 150 MG CAPSULE PO (08:43)
[2021-02-18] MEDS: Insulin Human 75/25 Kwickpen 25 UNIT SC ×2 (08:43→17:39)
[2021-02-18 10:00] VITALS: PULSE 102; RESP 16; O2SAT 98
[2021-02-18 11:06] LABS: Bedside Glucose 270 mg/dL (70-110)
--- NOTE | 2021-02-18 12:29 | NURSING ---
Notified Dr. Whelan of patient's BS of 270. Received order for 1 time dose of 10 units. Order repeated back, will add order.
[2021-02-18] MEDS: Insulin Lispro 100 UNIT/ML INSULN.PEN 10 UNIT SC (12:40)
[2021-02-18 15:31] VITALS: BP 166/75; PULSE 89; RESP 18; TEMP 35.9; O2SAT 100
[2021-02-18 16:31] LABS: Bedside Glucose 171 mg/dL (70-110)
[2021-02-18] MEDS: Collagenase 30gm Tube 1 APPLIC TOPICAL (17:38)
[2021-02-18] MEDS: Tamsulosin HCl 0.4 MG Capsule PO (17:40)
--- NOTE | 2021-02-18 19:28 | DCINST_ITS ---
Discharge Diet: No Restrictions Discharge Activity: Return to Normal Activity, May Shower, Use Walker Weight Bearing Status: Partial weight bearing - Touch down forefoot weightbearing left foot with surgical shoe Do not walk on left heel ulcer. Keep extremity elevated above heart level: Left Leg, Right Leg Call your doctor if your incision/area has: Sudden Increased Bleeding, Increased Pain/ Swelling, Increased Redness, Foul Smelling Discharge Call your doctor if you observe: Fever of 101 or Higher, Inability to urinate, Inability to have a bowel movement, Shortness of breath, Chest pain, Uncontrolled pain Cleanse incision/area with: Soap & Water Additional Dressing/Incision Instructions:: Left: Change heel ulcer dressing daily with Santyl applied nickel thickness. Cover with gauze and kerlix. Bilateral: Cover leg with kerlix prior to asya wrap. Allergies/Adverse Reactions: Allergies aspirin [ASA] Allergy (Verified 01/04/21 20:25) Rash doxycycline Allergy (Verified 01/04/21 20:25) Rash levofloxacin [From Levaquin] Allergy (Verified 01/04/21 20:25) Diarrhea Penicillins Allergy (Verified 01/04/21 20:25) Rash Sulfa (Sulfonamide Antibiotics) Allergy (Verified 01/04/21 20:25) Rash Medications to take at Discharge Amlodipine [Norvasc] 5 mg PO DAILY 01/04/21 Magnesium Oxide 400 mg PO BID 01/04/21 Pregabalin [Lyrica] 100 mg PO BID 01/04/21 Simvastatin 20 mg PO QHS 01/04/21 Tamsulosin HCl 0.4 mg PO DAILY 01/04/21 Insulin Glargine 35 units SQ QHS 01/12/21 Insulin Lispro Kwikpen U-100 10 units SQ TIDCM 01/12/21 Lactobacillus Acidophilus 1 tab PO DAILY 01/12/21 Acetaminophen [Tylenol] 1,000 mg PO Q6H PRN PRN tab 02/08/21 Collagenase [Santyl] 1 applic TOPICAL DAILY@1000 #1 tube 02/08/21 Emollient Combination No.72 [Eucerin Intensive Repair] 1 applic TOPICAL 0600,2200 lotion 02/08/21 Rasta - ORANGE FLAVOR 1 packet PO DAILY #30 02/08/21 Menthol/Lanolin/Calamine/Znox [Calmoseptine Ointment] 1 applic TOPICAL 06,22 tube 02/08/21 Nystatin Powder [Mycostatin Powder] 1 applic TOPICAL BID bottle 02/08/21 The following prescriptions were given: Rasta - ORANGE FLAVOR 1 packet PO DAILY #30 Prescription Printed Collagenase [Santyl] 1 applic TOPICAL DAILY@1000 #1 tube Transmission Status: Received by [id number] Primary Care Physician: Surinder Del Rosario [Other] Please follow up with your Primary Care Physician in: 1 week. Test Results: Test results from this visit will be discussed in further detail at your follow- up appointment, if applicable. Please Follow Up With: DR NICOLE When: 06/13/21 Please Follow Up With: Surinder Del Rosario (PCP) When: 1 week Please Follow Up With: [facility] (Dr. Tom Adamson) When: 1 week after discharge Proposed Discharge Date: 02/20/21
[2021-02-18 21:36] LABS: Bedside Glucose 272 mg/dL (70-110)
[2021-02-18] MEDS: Atorvastatin Calcium 10 MG Tablet PO (22:42)
[2021-02-19] MEDS: Pregabalin 50 MG Capsule 100 MG PO ×2 (05:20→17:21)
[2021-02-19] MEDS: Magnesium Chloride 64 MG Delay Rel.Tablet 128 MG PO ×2 (05:20→17:19)
[2021-02-19] MEDS: Menthol/Lanolin/Calamine/Znox 113 GM Tube 1 APPLIC TOPICAL ×2 (05:21→15:11)
[2021-02-19] MEDS: Nystatin Powder 15gm Bottle 1 APPLIC TOPICAL ×2 (05:21→15:12)
[2021-02-19] MEDS: amLODIPine 5 MG Tablet PO (05:21)
[2021-02-19] MEDS: Cefdinir 300 MG Capsule PO ×2 (05:21→17:19)
[2021-02-19 05:26] VITALS: BP 142/67; PULSE 81; RESP 16; TEMP 36.6
[2021-02-19 05:49] LABS: Hematocrit 24.1 % (40-54); Hemoglobin 7.8 g/dL (13.0-16.5); Mean Corp Hgb Conc 32.4 g/dL (32-36); Mean Corpuscular Hgb 28.3 pg (27.0-32.0); Mean Corpuscular Volume 87.3 fL (80-94); Platelet Count 143 K/mm3 (150-450); RBC Distribution Width CV 16.1 % (11.6-14.6); RBC Distribution Width SD 49.9 fl (35.1-43.9); Red Blood Count 2.76 M/mm3 (4.6-6.2); White Blood Count 6.1 K/mm3 (4.4-11.0)
[2021-02-19 06:04] LABS: Albumin, Serum 2.4 g/dL (3.2-5.0); BUN 68 mg/dL (7-18); BUN/Creat Ratio 34.2 RATIO (10-20); Calcium,Total 8.4 mg/dL (8.5-10.1); Chloride 109 mmol/L (98-107); Creatinine, Serum 1.99 mg/dL (0.70-1.30); EST Glomerular Filtration Rate 35 mL/min (>60); Est Glom Filt Rate - Afr Amer 42 mL/min (>60); Estimated Creatinine Clearance 32.58 ml/min; Glucose 194 mg/dL (74-106); Iron 29 ug/dL (65-175); Iron Binding Capacity,Total 197 ug/dL (250-450); PERCENT IRON SATURATION 14.7 % (15.0-55.0); Phosphorus 3.7 mg/dL (2.5-4.9); Potassium 4.2 mmol/L (3.5-5.1); Sodium Level 143 mmol/L (136-145)
[2021-02-19 06:35] LABS: Bedside Glucose 193 mg/dL (70-110)
[2021-02-19] MEDS: Insulin Human 75/25 Kwickpen 25 UNIT SC ×2 (08:27→17:17)
[2021-02-19] MEDS: Juven (unflavored) Packet 1 PACKET PO (08:28)
[2021-02-19] MEDS: Iron Polysaccharide Complex 150 MG CAPSULE PO (08:28)
[2021-02-19] MEDS: Furosemide 40 MG Tablet PO ×2 (08:28→17:19)
--- NOTE | 2021-02-19 10:49 | NURSING ---
States he is leaving to go to appointment In [place]. He will not be here for lunch so this RN did not give noon insulin. Rt leg rewrapped so resident could fit his Rt shoe on.
--- NOTE | 2021-02-19 13:58 | NURSING ---
Pt is currently off the unit for an appt.
[2021-02-19] MEDS: Collagenase 30gm Tube 1 APPLIC TOPICAL (15:11)
--- NOTE | 2021-02-19 15:20 | NURSING ---
Back from appointment to get Covid vaccine. Assisted to bathroom. Santyl to Lt heel and dressing change done. resident with no complaints or needs expressed at this time.
[2021-02-19 16:00] VITALS: BP 162/79; PULSE 74; RESP 14; TEMP 36.7; O2SAT 100
[2021-02-19 16:36] LABS: Bedside Glucose 328 mg/dL (70-110)
[2021-02-19] MEDS: Tamsulosin HCl 0.4 MG Capsule PO (17:19)
[2021-02-19] MEDS: Insulin Lispro 100 UNIT/ML INSULN.PEN 10 UNIT SC (18:10)
[2021-02-19] MEDS: Acetaminophen 500 MG Tablet 1000 MG PO (20:42)
[2021-02-19] MEDS: Atorvastatin Calcium 10 MG Tablet PO (20:42)
[2021-02-19 20:49] VITALS: RESP 18
[2021-02-19 21:16] LABS: Bedside Glucose 200 mg/dL (70-110)
[2021-02-20 05:44] VITALS: BP 125/52; PULSE 82; RESP 18; TEMP 36.6; O2SAT 95
[2021-02-20] MEDS: Magnesium Chloride 64 MG Delay Rel.Tablet 128 MG PO (05:48)
[2021-02-20] MEDS: Cefdinir 300 MG Capsule PO (05:48)
[2021-02-20] MEDS: Menthol/Lanolin/Calamine/Znox 113 GM Tube 1 APPLIC TOPICAL (05:49)
[2021-02-20] MEDS: Nystatin Powder 15gm Bottle 1 APPLIC TOPICAL (05:49)
[2021-02-20] MEDS: amLODIPine 5 MG Tablet PO (05:49)
[2021-02-20] MEDS: Pregabalin 50 MG Capsule 100 MG PO (05:52)
[2021-02-20 06:16] LABS: Bedside Glucose 133 mg/dL (70-110)
[2021-02-20] MEDS: Juven (unflavored) Packet 1 PACKET PO (08:03)
[2021-02-20] MEDS: Iron Polysaccharide Complex 150 MG CAPSULE PO (08:04)
[2021-02-20] MEDS: Insulin Human 75/25 Kwickpen 30 UNIT SC (08:05)
--- NOTE | 2021-02-20 09:46 | CASEMGMT ---
Social Work Brief Interview for Mental Status (BIMS) and resident mood interview (PHQ-9) completed on this day. BIMS score . PHQ-9 score . Pedro MCKENNA, ALEXANDERS
[2021-02-20 11:05] LABS: Bedside Glucose 214 mg/dL (70-110)
[2021-02-20] MEDS: Collagenase 30gm Tube 1 APPLIC TOPICAL (14:27)
--- NOTE | 2021-02-20 14:47 | NURSING ---
wound photo: left heel
[2021-02-20 15:28] VITALS: BP 148/58; PULSE 76; RESP 20; TEMP 36.8; O2SAT 94
--- NOTE | 2021-02-20 15:48 | NURSING ---
DISCHARGE INSTRUCTIONS REVIEWED WITH R'. HE STATES HE DOES NOT TAKE NORVASC OR MAG OXIDE AT HOME. DI DNOT HAVE SCRIPTS SENT FOR THESE. CALLED DR HILLS. HE STATED HE WILL CALL THESE IN. ALSO, INSULIN ORDER CLARIFIED. R' IS TO TAKE 75/25 NOVOLOG 30 UNITS BID. UPDATED R' ON ALL. R' HAS APPTS WITH PCP 02/27, DR. NICOLE IN [place], DR ALANIZ (ORTHO SURGEON) 03/02, AND DR MCCAIN HE WILL SCHEDULE.
== END 2021-02-20 16:50 | disposition home health service (06) | DRG 623 ==
PROVIDERS: Internal Medicine Nephrology; Admitting Provider Family Medicine Geriatric Medicine; Visit Provider Family Medicine Geriatric Medicine
DX: E11.69 Type 2 diabetes mellitus with other specified complication (principal); G61.81 Chronic inflammatory demyelinating polyneuritis; M86.641 Other chronic osteomyelitis, right hand; L97.422 Non-pressure chronic ulcer of left heel and midfoot with fat layer exposed; N18.9 Chronic kidney disease, unspecified; E11.22 Type 2 diabetes mellitus with diabetic chronic kidney disease; I12.9 Hypertensive chronic kidney disease with stage 1 through stage 4 chronic kidney disease, or unspecified chronic kidney disease; E11.621 Type 2 diabetes mellitus with foot ulcer; M10.9 Gout, unspecified; E78.5 Hyperlipidemia, unspecified; N40.0 Benign prostatic hyperplasia without lower urinary tract symptoms; E11.51 Type 2 diabetes mellitus with diabetic peripheral angiopathy without gangrene; E11.42 Type 2 diabetes mellitus with diabetic polyneuropathy; R21 Rash and other nonspecific skin eruption; Z87.891 Personal history of nicotine dependence; Z79.4 Long term (current) use of insulin; Z79.899 Other long term (current) drug therapy; B35.4 Tinea corporis
CPT/HCPCS: 36415; 80048; 80069; 80202; 81001; 82570; 82962; 83540; 83550; 83970; 84156; 85014; 85018; 85025; 85027; 87077; 87086; 87088; 87186; 87635; 97110; 97162; 97166; 97530; 97535; 97542; 97802; J2997; J7030; J7050; A4216; J1610; U0002

== ENCOUNTER 2021-02-14 15:46 | Outpatient (RCR) | payer MEDICARE, BC, SELFPAY | END 2021-02-14 23:59 | LOC: IMMUN 15:46 | PROVIDERS: Referring Provider Family Medicine; Visit Provider Family Medicine | DX: Z23 Encounter for immunization (principal) ==